=== PATIENT | female | born 1960 | race Hispanic/Latino ===

== ENCOUNTER 2017-10-18 12:55 | Emergency (ER) | payer OTHER ==
--- OUTSIDE RECORDS SUMMARY | 2017-10-18 12:59 | XMS REPORT | Clinical Summary ---
:1960 Author Organization [facility] Address [address] [place] [address] Phone Care Team Providers Name Role Phone Unavailable Primary Care Provider Unavailable Allergies Active Allergy Reactions Severity Noted Date Comments Pregabalin 03/20/2017 Heart attack Current Medications Prescription Sig. Disp. Refills Start Date End Date Status aspirin 81 MG EC Take 81 mg by mouth Active tablet daily. carvedilol (COREG) Take 25 mg by mouth Active 25 MG tablet 2 (two) times daily with breakfast and dinner. clopidogrel (PLAVIX) Take 75 mg by mouth Active 75 mg tablet daily. cholecalciferol, Take 50,000 Units Active vitamin D3, 50,000 by mouth once a unit Tab week. lisinopril Take 40 mg by mouth Active (PRINIVIL,ZESTRIL) daily. 40 MG tablet sevelamer (RENVELA) Take 2,400 mg by Active 800 mg tablet mouth 3 (three) times daily with meals . amLODIPine (NORVASC) Take 10 mg by mouth Active 10 MG tablet daily. INSULIN DEGLUDEC Inject 12 Units Active (TRESIBA FLEXTOUCH subcutaneously U-100 SUBQ) nightly. atorvastatin Take 20 mg by mouth Active (LIPITOR) 20 MG daily. tablet senna (SENOKOT) 8.6 Take 1 tablet by Active mg tablet mouth daily. cyclobenzaprine Take 5 mg by mouth Active (FLEXERIL) 5 MG 3 (three) times tablet daily as needed for Muscle spasms. rosuvastatin Take 20 mg by mouth Discontinued (CRESTOR) 20 MG daily. 7 tablet insulin regular Inject 0.05 mLs (5 10 mL 0 08/04/2015 Discontinued (HUMULIN R,NOVOLIN Units total) 7 R) 100 unit/mL subcutaneously 3 injection (three) times daily before meals. calcium carbonate Take 1 tablet by Discontinued (TUMS) 500 mg mouth daily. 7 chewable tablet cholecalciferol, Take 1,000 Units by Discontinued vitamin D3, 1,000 mouth daily. 7 unit capsule furosemide (LASIX) Take 40 mg by mouth Discontinued 40 MG tablet 2 (two) times 7 daily. hydrALAZINE Take 25 mg by mouth Discontinued (APRESOLINE) 25 MG 3 (three) times 7 tablet daily. meclizine (ANTIVERT) Take 25 mg by mouth Discontinued 25 mg tablet 3 (three) times 7 daily as needed. fLUoxetine (PROZAC) Take 20 mg by mouth Discontinued 20 MG capsule as needed . 7 Active Problems Problem Noted Date Encounter for preprocedural cardiovascular examination 03/20/2017 Pre-transplant evaluation for ESRD (end stage renal disease) 11/22/2016 Last Assessment & Plan: Needs to evaluate for PVD ESRD (end stage renal disease) ([facility]) 11/22/2016 Diabetic nephropathy associated with type 2 diabetes mellitus ([facility]) 11/22/2016 H/O stroke without residual deficits 11/22/2016 Last Assessment & Plan: Patient reports residual right side weakness Proliferative diabetic retinopathy of both eyes without macular edema 2016 associated with type 2 diabetes mellitus ([facility]) Diabetic polyneuropathy associated with type 2 diabetes mellitus ([facility]) 2016 Hyperlipidemia, unspecified hyperlipidemia type 11/22/2016 Secondary hyperparathyroidism of renal origin ([facility]) 11/22/2016 PVD (peripheral vascular disease) ([facility]) 11/22/2016 Last Assessment & Plan: Mild claudication and weakness to bilateral legs when exercising. PVD to common iliacs, but cleared for kidney transplant per aortogram diagram. Metabolic acidosis 08/01/2015 Right sided weakness 07/30/2015 Hyperkalemia 07/30/2015 CKD (chronic kidney disease), stage 3 (moderate) 07/30/2015 Hypertension Last Assessment & Plan: Controled with medication: lisinopril and carvedilol High cholesterol Last Assessment & Plan: Controled with Atorvastatin Diabetes mellitus (HCC) Encounters Date Type Specialty Care Team Description 09/25/2017 Orders Only Transplant Mima Donato, LADAN ESRD (end stage renal disease) (HCC) (Primary Dx);Patient awaiting renal transplant 08/03/2017 Documentation Transplant Keshia Quiles 08/02/2017 [facility] Charge Visit Transplant Soumya Greenberg MD Provider, [facility] Registry Generic 08/02/2017 Documentation Transplant Mima Donato RN 07/24/2017 Documentation Transplant Waleska Stock RN 07/24/2017 Documentation Transplant Bass Sanjuana E 06/28/2017 Telephone Transplant Dayami Appointment (Spoke Waleska Daily RN to Pat, pt's daughter, regarding completion of MRB recommendations. Per Pat, pt still needs to see the neurologist & psychiatrist. Will follow up.) 06/16/2017 Telephone Transplant Bass Sanjuana E Appointment (Returned pt's daughter call, I informed her that pt has a new nurse coordinator (gave her name and #) she was checking on status of eval, I told her I will ck with her coordinator on Monday06/19/17 and one of us will call her back. Gave her Dr. Baker's # for her to call and get a an appt per post MRB. ) 04/04/2017 Evaluation Transplant Zakiya Austin Ramiro H/O stroke without MD Julio residual deficits;Pre-transpl ant evaluation for ESRD (end stage renal disease);PVD (peripheral vascular disease) (HCC);High cholesterol;Essentia l hypertension 04/04/2017 Telephone Transplant Gan, Appointment (Patient Pat daughter Pat called to confirm her mother's appt and she's aware of the location and time of the appt) 03/20/2017 Hospital Encounter Sivan Graber MD Diabetic nephropathy associated with type 2 diabetes mellitus (HCC);ESRD (end stage renal disease) (HCC);H/O stroke without residual deficits;High cholesterol;Hyperlip idemia, unspecified hyperlipidemia type;Essential hypertension;Pre-tra nsplant evaluation for ESRD (end stage renal disease);PVD (peripheral vascular disease) (HCC) 03/20/2017 Orders Only General Internal Medicine 03/20/2017 Outside Orders Central Sivan Garber MD Scheduling 03/20/2017 Procedure Pass 03/20/2017 Surgery Sivan Garber MD L CATH & PCI 03/14/2017 Telephone Transplant Sanjuana Bass E 03/14/2017 Telephone Transplant Mani Lovely Floyd Appointment 01/11/2017 Documentation Transplant Hilda Bassria E 12/07/2016 Documentation Transplant Melody Hernandez RN 12/05/2016 Abstract Transplant Dianne Noble RN 12/02/2016 Committee Review Transplant Sanjuana Bass E 11/22/2016 Evaluation Transplant Soumya Greenberg MD 11/22/2016 Follow-Up Transplant Soumya Greenberg MD 11/22/2016 Follow-Up Transplant Soumya Greenberg MD 11/22/2016 Evaluation Transplant Dionicio, Pre-transplant Bhamidipati evaluation for ESRD MD Pedro (end stage renal disease) (Primary Dx);ESRD (end stage renal disease) (HCC);Diabetic nephropathy associated with type 2 diabetes mellitus (HCC);H/O stroke without residual deficits;Proliferati ve diabetic retinopathy of both eyes without macular edema associated with type 2 diabetes mellitus (HCC);Diabetic polyneuropathy associated with type 2 diabetes mellitus (HCC) 11/14/2016 Hospital Encounter Cardiology Dionicio, Pre-transplant Bhamidipati evaluation for ESRD MD Pedro (end stage renal disease) 11/14/2016 Hospital Encounter Cardiology Dionicio, Pre-transplant Donaamidipati evaluation for ESRD MD Pedro (end stage renal disease) 11/14/2016 Hospital Encounter Cardiology Dionicio, Pre-transplant Bhamidipati evaluation for ESRD MD Pedro (end stage renal disease) 11/14/2016 Hospital Encounter Radiology Soumya Greenberg MD 11/14/2016 Orders Only Transplant Dionicio, Pre-transplant Bhamidipati evaluation for ESRD MD Pedro (end stage renal disease) after 10/17/2016 Family History Medical History Relation Name Comments Diabetes Father Hypertension Father Diabetes Mother Diabetes Sister Diabetes Sister Relation Name Status Comments Brother Alive Father Mother Alive Sister Alive Sister Alive Sister Alive Sister Alive Social History Tobacco Use Types Packs/Day Years Used Date Never Smoker Alcohol Use Drinks/Week oz/Week Comments No Sex Assigned at Date Recorded Not on file Last Filed Vital Signs Vital Sign Reading Time Taken Blood Pressure 134/68 04/04/2017 9:52 AM [employer] Pulse 80 04/04/2017 9:52 AM [employer] Temperature 36.7 C (98.1 F) 04/04/2017 9:52 AM [employer] Respiratory Rate 20 04/04/2017 9:52 AM [employer] Oxygen Saturation 97% 04/04/2017 9:52 AM [employer] Inhaled Oxygen Concentration - - Weight 82.8 kg (182 lb 8 oz) 04/04/2017 9:52 AM [employer] Height 157.5 cm (5' 2") 04/04/2017 9:52 AM [employer] Body Mass Index 33.38 04/04/2017 9:52 AM [employer] Plan of Treatment Health Maintenance Due Date Last Done Comments INFLUENZA VACCINE 02/26/2018 Implants Implanted Type Area Retail Sales Consultant Device Expiration Model / Identifier Date Serial / Lot Device Clsr Angio-Seal Vip 6fr [id number] - [id number] Cardiovascular Right: [employer] TAMIE 01/26/2018 [id number] / Implanted: Qty: 1 on 03/20/2017 by Sivan Garber MD [employer] MED:CARDIAC / SURG [id number] Procedures Procedure Name Priority Date/Time Associated Diagnosis Comments ABD AO & LOWER EXT 03/20/2017 5:30 PM CDT Z01.810 ANGIOS/ POSS PPI Case Notes (2)CASE POP6 LEFT CATH /CORONARY ANGIOS/ POSS PCI BILATERAL LOWER EXT W/ RUNNOFFS L CATH & PCI 03/20/2017 5:30 PM CDT Z01.810 Case Notes (2)CASE POP6 LEFT CATH /CORONARY ANGIOS/ POSS PCI BILATERAL LOWER EXT W/ RUNNOFFS after 10/17/2016 Results VASCULAR DIAGRAM -SCAN (03/29/2017 11:12 AM)Only the most recent of4 resultswithin the time period is included.CARDIAC CATH REPORT - SCAN (2016 6:30 PM)POC-Glucose meter (03/20/2017 3:35 PM)Only the most recent of2 resultswithin the time period is included. Component Value Ref Range POC-Glucose Meter 110Comment: TESTED AT [address] 70 - 110 mg/dL [address] Specimen Performing Laboratory Blood [facility] [address] [address] POCT , urine (03/20/2017 1:27 PM) Component Value Ref Range Test Urine, POC Negative Control line present?, POC Yes Background clear?, POC Yes UPT Cassette Lot #, POC [id number] UPT Cassette Expiration Date, POC 26/08/3018 Specimen Performing Laboratory Urine ECG 12 lead (03/20/2017 1:25 PM)Only the most recent of2 resultswithin the time period is included. Specimen Performing Laboratory GE MUSE Narrative Ventricular Rate 72 BPM Atrial Rate 72 BPM P-R Interval 134 ms QRS Duration 80 ms Q-T Interval 456 ms QTC Calculation(Bazett) 499 ms P [place] 45 degrees R [place] 59 degrees T [place] -12 degrees Normal sinus rhythm Nonspecific T wave abnormality Prolonged QT Abnormal ECG When compared with ECG of 14-NOV-2016 15:15, T wave inversion now evident in Inferior leads Nonspecific T wave abnormality now evident in Anterolateral leads Confirmed by MD JIMBO, IHAB ([id number]) on 03/20/2017 9:53:43 PM Procedure Note Interface, External Ris In - 03/20/2017 9:53 PM CDT Ventricular Rate 72 BPM Atrial Rate 72 BPM P-R Interval 134 ms QRS Duration 80 ms Q-T Interval 456 ms QTC Calculation(Bazett) 499 ms P [place] 45 degrees R [place] 59 degrees T [place] -12 degrees Normal sinus rhythm Nonspecific T wave abnormality Prolonged QT Abnormal ECG When compared with ECG of 14-NOV-2016 15:15, T wave inversion now evident in Inferior leads Nonspecific T wave abnormality now evident in Anterolateral leads Confirmed by MD JIMBO, IHAB ([id number]) on 03/20/2017 9:53:43 PM PT/aPTT (03/20/2017 12:40 PM) Component Value Ref Range Protime 14.3 11.7 - 14.7 seconds INR 1.1 <=5.9 PTT 33.0 22.5 - 36.0 seconds Specimen Performing Laboratory [facility] [address] [place] [address] Narrative RECOMMENDED COUMADIN/WARFARIN INR THERAPY RANGES STANDARD DOSE: 2.0 - 3.0 Includes: PROPHYLAXIS for venous thrombosis, systemic embolization; TREATMENT for venous thrombosis and/or pulmonary embolus. HIGH RISK: Target INR is 2.5-3.5 for patients with mechanical heart valves. CBC (Hemogram only) (03/20/2017 12:40 PM) Component Value Ref Range WBC 13.6 (H) 3.5 - 10.5 K/L RBC 3.90 (L) 3.93 - 5.22 M/L Hemoglobin 11.0 (L) 11.2 - 15.7 GM/DL Hematocrit 35.2 34.1 - 44.9 % MCV 90.3 79.4 - 94.8 fL MCH 28.2 25.6 - 32.2 pg MCHC 31.3 (L) 32.2 - 35.5 GM/DL RDW 13.6 11.7 - 14.4 % Platelets 321 150 - 450 K/CU MM MPV 11.1 9.4 - 12.3 fL nRBC 0 0 - 0 /100 WBC Specimen [place] [address] Basic Metabolic Panel (03/20/2017 12:40 PM) Component Value Ref Range Sodium 140 136 - 145 meq/L Potassium 3.8 3.5 - 5.1 meq/L Chloride 103 98 - 107 meq/L CO2 25 22 - 29 meq/L BUN 47 (H) 7 - 21 mg/dL Creatinine 8.11 (H) 0.57 - 1.25 mg/dL Glucose 88 70 - 105 mg/dL Calcium 7.3 (L) 8.4 - 10.2 mg/dL EGFR 5Comment: ESTIMATED GFR IS NOT ACCURATE CREATININE mL/min/1.73 sq m CLEARANCE IN PREDICTING GLOMERULAR FILTRATION RATE. ESTIMATED GFR IS NOT APPLICABLE FOR DIALYSIS PATIENTS. Specimen [place] [address] Stress Echo With Tracing (11/14/2016 2:07 PM) Specimen Performing Laboratory DIGISONICS Narrative Echocardiography Laboratory [address] [place] [address] Voice:[phone] Stress Echocardiogram Pat.Name:ELLY MARSHALL Emilee.ID:[id number] .Date: 11/14/2016 Refer.:SOUMYA GREENBERG Exam Time: 2:07:00 PMStudy Type:Stress Echo Height:62inWeight: 180lb BSA: 1.83 m2 DOBAge:1960,56Y Sex: FEMALEBP:144/66 HR:79 bpmSonogrphr: Heaven Mendez MIESHA Pat. Stat.:OutpatientRoom:OP Reason for Study:Pre-surgical evaluation of organ transplant History / Clinical:Diabetes, ESRD, Hyperlipidemia, Hypertension, Stroke/TIA Procedures:STRESS ECHO, Dobutamine, Definity contrast done Race: SUMMARY: Overall Stress Interp: Normal Stress echo. No evidence of ischemia. Resting echocardographic study is normal with normal chamber sizes and wall motion throughout. Dobutamine infusion was carried out to a peak dose of 40 mcg/kg/min. This was supplemented by 0.5 mg atropine administration.No chest pain or ischemic EKG changes were found. Echocardiography was performed throughout the study.Wall motion was enhanced in all regions with no segmental abnormalities noted. In conclusion, the study strongly rules against clinically threatening coronary artery disease. These findings are consistent with low risk stress findings. FINDINGS: RESTING FINDINGS RV: RV function is normal. RV wall motion is normal. LV: Overall wall motion is normal. LV function is normal. EstimatedEF is >60%. All waterman are normal STRESS FINDINGS RV: RV function is normal. RV wall motion is normal. LV: LV function is hyperdynamic. Overall stress wall motion is normal.Estimated EF is >60%. All waterman are normal STRESS: Baseline Vital Signs:Intervention: Dobutamine ECG: NormalPeak Dose: 40 mcg/kg /min HR:81Atropine: 0.5 Duration:14:32 Rhythm:Normal sinus rhythm Stress Test Results: Max HR:142 Target HR: 141 % Target:101 % Symptoms and Complications: Arrhythmias: None Complications: None Conclusions: Normal heart rate response to pharmacological stress., Normal blood pressure response to pharmacological stress. Overall Stress Interp: Normal Stress echo. No evidence of ischemia. Stress ECG Interp: No ischemic S-T changes occurred with stress WALL MOTION: RESTING WALL MOTION: All waterman are normal Wall Index=1 STRESS WALL MOTION: All waterman are normal Stress Wall Index=1 Signed 11/14/2016 05:45 PM Stoney Mello M.D. Procedure Note Interface, External Ris In - 11/14/2016 5:45 PM CDT Echocardiography Laboratory [address] [place] [address] Voice: [phone] Stress Echocardiogram Pat.Name: ELLY MARSHALL Pat.ID: [id number] St.Date: 11/14/2016 Refer.MD: SOUMYA GREENBERG Exam Time: 2:07:00 PM Study Type:Stress Echo Height: 62in Weight: 180lb BSA: 1.83 m2 Age: 5 1960,56Y Sex: FEMALE BP: 144/66 HR: 79 bpm Sonogrphr: Heaven Mendez RDCS Pat. Stat.:Outpatient Room: OP Reason for Study:Pre-surgical evaluation of organ transplant History / Clinical:Diabetes, ESRD, Hyperlipidemia, Hypertension, Stroke/TIA Procedures:STRESS ECHO, Dobutamine, Definity contrast done Race: SUMMARY: Overall Stress Interp: Normal Stress echo. No evidence of ischemia. Resting echocardographic study is normal with normal chamber sizes and wall motion throughout. Dobutamine infusion was carried out to a peak dose of 40 mcg/kg/min. This was supplemented by 0.5 mg atropine administration. No chest pain or ischemic EKG changes were found. Echocardiography was performed throughout the study. Wall motion was enhanced in all regions with no segmental abnormalities noted. In conclusion, the study strongly rules against clinically threatening coronary artery disease. These findings are consistent with low risk stress findings. FINDINGS: RESTING FINDINGS RV: RV function is normal. RV wall motion is normal. LV: Overall wall motion is normal. LV function is normal. Estimated EF is >60%. All waterman are normal STRESS FINDINGS RV: RV function is normal. RV wall motion is normal. LV: LV function is hyperdynamic. Overall stress wall motion is normal. Estimated EF is >60%. All waterman are normal STRESS: Baseline Vital Signs: Intervention: Dobutamine ECG: Normal Peak Dose: 40 mcg/kg/min HR: 81 Atropine: 0.5 Duration: 14:32 Rhythm: Normal sinus rhythm Stress Test Results: Max HR: 142 Target HR: 141 % Target: 101 % Symptoms and Complications: Arrhythmias: None Complications: None Conclusions: Normal heart rate response to pharmacological stress., Normal blood pressure response to pharmacological stress. Overall Stress Interp: Normal Stress echo. No evidence of ischemia. Stress ECG Interp: No ischemic S-T changes occurred with stress WALL MOTION: RESTING WALL MOTION: All waterman are normal Wall Index=1 STRESS WALL MOTION: All waterman are normal Stress Wall Index=1 Signed 11/14/2016 05:45 PM Stoney Mello M.D. 2D Echo W/Doppler(CW/PW/Color) (11/14/2016 1:04 PM) Component Value Ref Range Ejection Fraction LV EF 68.3 % (55-75) Index 37.3 %/m2 Specimen Performing Laboratory [facility] Echocardiography Laboratory [address] [place] [address] Voice:[phone] Transthoracic Echocardiogram Pat.Name:ELLY MARSHALL Pat.ID:[id number] .Date: 11/14/2016 Refer.MD:SOUMYA GREENBERG Exam Time: 1:04:00 PMStudy Type:Echo Complete Height:62inWeight: 180lb BSA: 1.83 m2 DOBAge:1960,56Y Sex: FEMALEBP:134/64 HR:80 bpmSonogrphr: Heaven Mendez RDCS Pat. Stat.:OutpatientRoom:OP Reason for Study:Pre-surgical evaluation of organ transplant History / Clinical:Diabetes, ESRD, Hyperlipidemia, Hypertension, Stroke/TIA Procedures:2D ECHO W/ DOPPLER (CW/PW/COLOR), Definity contrast done Race: SUMMARY: Left ventricular chamber size (by vol index) is mildly enlarged (female - LVED vol - 62-70 ml/m2). Mild concentric LV hypertrophy. All of the LV segments contract normally. LVEF by quantitative assessment is normal (> 60%). Grade 2 diastolic dysfunction (moderately increased LA pressure). The right ventricular chamber size and systolic function are within normal limits. A trace of mitral regurgitation. Estimated Peak systolic PA pressure is 40-45 mm Hg. No significant pericardial effusion is visualized. FINDINGS: Rhythm/BP: Regular sinus rhythm during the exam. LV: All of the LV segments contract normally. Left ventricular chambersize (by vol index) is mildly enlarged (female - LVEDvol - 62-70 ml/m2). Mild concentric LV hypertrophy. LVEFby quantitative assessment is normal (> 60%). Grade 2 diastolicdysfunction (moderately increased LA pressure) . LA: LA size is moderately enlarged (42-48 ml/m2). RV: The right ventricular chamber size and systolic function are withinnormal limits. RA: The RA is partially visualized. RA cavity size is normal. AV: Mild AoV cusp thickening. No evidence of aortic stenosis. MV: Mild MV leaflet thickening. A trace of mitral regurgitation. Lvxo-lr-vrozkoeotjoscs annular calcification. TV: A trace of tricuspid regurgitation. TV structure is normal. EstimatedPeak systolic PA pressure is 40-45 mm Hg. PV: Normal PV structure and function by limited views and Doppler. Pericard: No significant pericardial effusion is visualized. Systemic Veins: The inferior vena cava size is normal. The estimated RApressure by IVC dynamics 5-10 mmHg. Comparison: No prior exam available for comparison. Quality:Technically good exam. MEASUREMENTS: 2D LV EF SinglePlane LV Ad 35.3 cm2(9.5-22.3)* LV CO 7.05 l/min LV As 17.9 cm2(4-11.6)* LV CI 3.85 l/min/m2 NVNIA419 ml (59-136) Index68.7 ml/m2 LV SV 86 ml LVESV 40 mlHR82 bpm Left Ventricle LV A% 49.3 %(36-64) LA Sng Plane LA Vol85.3 mlIndex 46.6 ml/m2 LA Area 26.3 cm2(8.8-23.4)* Parasternal Long [place] Ao An 2.03 cm (1.4-2.6) LV%fs 31.6 %(25-46) Ao Rtd2.39 cmLVPWd 1.29 cm IVSd1.27 cm LA Ds 3.97 cm (2.3-3.8)* LVIDd 5.79 cm (4.3-5.1)* LV Wmn 1.28 cm LVIDs 3.96 cm (2-4) DOPPLER LVOT LVOT For Flow EBADjxAiv914 cm/s (70-110) LVOT CO 8.66 l/min LVOT VTI33.3 cmLVOT CI 4.73 l/min/m2 LVOTpkPG4.63 mmHgLVOT Area 3.24 cm2 LVOTmnPG2.31 qkJpXC27 bpm LVOT SV108 ml Aortic Valve AV DI0.744 SVi (LVOT)58.8 LVOT AV For Flow/MAGNOLIA AV pkVel 172 cm/s (100-170)* AV AC/ET 0.277 AV mnVel 117 cm/sAVpkAcRt 4825 cm/s2 AV pkPG 11.8 mmHgAV DeRt 449 cm/s2 AV mnPG 6.45 mmHgArea (VTI) 2.41 cm2(3-5)* AV VTI44.7 cmArea (Preston) 2.03 cm2(3-5)* AV ET383 msecAV AC106 msec (83-118) MV E/A Ratio MV pkE 132 cm/s (60-130)* MV E/A1.05 MV pkA 126 cm/s TV Regurg Flow TV pkVel 297 cm/s (30-70)* TV pkPG 35.3 mmHg RVsys P 45.3 mmHgRA Press 10 mmHg DEFAULT DEFA Em 10.2 cm/sDEFA E/Em 12.7 Signed 11/14/2016 05:43 PM Stoney Mello M.D. Procedure Note Interface, External Ris In - 11/14/2016 5:43 PM CDT Echocardiography Laboratory [address] [place] [address] Voice: [phone] Transthoracic Echocardiogram Pat.Name: ELLY MARSHALL Pat.ID: [id number] .Date: 11/14/2016 Refer.: SOUMYA GREENBERG Exam Time: 1:04:00 PM Study Type:Echo Complete Height: 62in Weight: 180lb BSA: 1.83 m2 Age: 5 1960,56Y Sex: FEMALE BP: 134/64 HR: 80 bpm Sonogrphr: Heaven Mendez RDCS Pat. Stat.:Outpatient Room: OP Reason for Study:Pre-surgical evaluation of organ transplant History / Clinical:Diabetes, ESRD, Hyperlipidemia, Hypertension, Stroke/TIA Procedures:2D ECHO W/ DOPPLER (CW/PW/COLOR), Definity contrast done Race: SUMMARY: Left ventricular chamber size (by vol index) is mildly enlarged (female - LVED vol - 62-70 ml/m2). Mild concentric LV hypertrophy. All of the LV segments contract normally. LVEF by quantitative assessment is normal (> 60%). Grade 2 diastolic dysfunction (moderately increased LA pressure). The right ventricular chamber size and systolic function are within normal limits. A trace of mitral regurgitation. Estimated Peak systolic PA pressure is 40-45 mm Hg. No significant pericardial effusion is visualized. FINDINGS: Rhythm/BP: Regular sinus rhythm during the exam. LV: All of the LV segments contract normally. Left ventricular chamber size (by vol index) is mildly enlarged (female - LVED vol - 62-70 ml/m2). Mild concentric LV hypertrophy. LVEF by quantitative assessment is normal (> 60%). Grade 2 diastolic dysfunction (moderately increased LA pressure). LA: LA size is moderately enlarged (42-48 ml/m2). RV: The right ventricular chamber size and systolic function are within normal limits. RA: The RA is partially visualized. RA cavity size is normal. AV: Mild AoV cusp thickening. No evidence of aortic stenosis. MV: Mild MV leaflet thickening. A trace of mitral regurgitation. Ouka-oy-eoxjydeu mitral annular calcification. TV: A trace of tricuspid regurgitation. TV structure is normal. Estimated Peak systolic PA pressure is 40-45 mm Hg. PV: Normal PV structure and function by limited views and Doppler. Pericard: No significant pericardial effusion is visualized. Systemic Veins: The inferior vena cava size is normal. The estimated RA pressure by IVC dynamics 5-10 mmHg. Comparison: No prior exam available for comparison. Quality: Technically good exam. MEASUREMENTS: 2D LV EF SinglePlane LV Ad 35.3 cm2 (9.5-22.3)* LV CO 7.05 l/min LV As 17.9 cm2 (4-11.6)* LV CI 3.85 l/min/m2 LVEDV 126 ml (59-136) Index 68.7 ml/m2 LV SV 86 ml LVESV 40 ml HR 82 bpm Left Ventricle LV A% 49.3 % (36-64) LA Sng Plane LA Vol 85.3 ml Index 46.6 ml/m2 LA Area 26.3 cm2 (8.8-23.4)* Parasternal Long [place] Ao An 2.03 cm (1.4-2.6) LV%fs 31.6 % (25-46) Ao Rtd 2.39 cm LVPWd 1.29 cm IVSd 1.27 cm LA Ds 3.97 cm (2.3-3.8)* LVIDd 5.79 cm (4.3-5.1)* LV Wmn 1.28 cm LVIDs 3.96 cm (2-4) DOPPLER LVOT LVOT For Flow LVOTpkVel 108 cm/s (70-110) LVOT CO 8.66 l/min LVOT VTI 33.3 cm LVOT CI 4.73 l/min/m2 LVOTpkPG 4.63 mmHg LVOT Area 3.24 cm2 LVOTmnPG 2.31 mmHg HR 80 bpm LVOT SV 108 ml Aortic Valve AV DI 0.744 SVi (LVOT) 58.8 LVOT AV For Flow/MAGNOLIA AV pkVel 172 cm/s (100-170)* AV AC/ET 0.277 AV mnVel 117 cm/s AVpkAcRt 4825 cm/s2 AV pkPG 11.8 mmHg AV DeRt 449 cm/s2 AV mnPG 6.45 mmHg Area (VTI) 2.41 cm2 (3-5)* AV VTI 44.7 cm Area ([place]rest[place]) 2.03 cm2 (3-5)* AV ET 383 msec AV AC 106 msec (83-118) MV E/A Ratio MV pkE 132 cm/s (60-130)* MV E/A 1.05 MV pkA 126 cm/s TV Regurg Flow TV pkVel 297 cm/s (30-70)* TV pkPG 35.3 mmHg RVsys P 45.3 mmHg RA Press 10 mmHg DEFAULT DEFA Em 10.2 cm/s DEFA E/Em 12.7 Signed 11/14/2016 05:43 PM Stoney Mello M.D. US abdomen complete (11/14/2016 12:00 PM) Specimen Performing Laboratory New [facility] FINAL REPORT Abdominal Ultrasound Clinical Diagnosis: Pretransplant evaluation Comparison: No comparison Technique: Multiple transaxial and longitudinal images were obtained through the abdomen with real time ultrasonography.Five MHz transducer was utilized.69 images were submitted for interpretation. Report: Liver: The liver measures 16.6 cm in the right midaxillary line. There are no focal masses.The echogenicity is homogenous. Spleen: The spleen measures 9.5 cm. in the left mid axillary line. Gallbladder: The transverse diameter is 3.7 cm.The wall measures two mm.There are no shadowing stones visualized. Biliary tree: There is no evidence of intra or extra hepatic biliary ductal dilatation.The common bile duct measures five mm. Portal vein: The portal vein measures nine mm. Pancreas:The pancreatic tail is not well seen secondary to overlying bowel gas. Ascites: Negative Pleural Effusion: Negative Right kidney: The right kidney measures 9.9 cm. in length without evidence of hydronephrosis. Left kidney: Theleft kidney measures 9.6 cm. in length without evidence of hydronephrosis. IVC/Aorta: Partially seen segments demonstrate no abnormality. Impression: Small kidneys bilaterally with increased echogenicity consistent with medical renal disease. Signed: Cyndy Lorenzana MD Report Verified Date/Time:11/14/2016 12:57:43 Reading Location: [address] Ultrasound Reading Room Procedure Note Interface, External Ris In - 11/14/2016 12:59 PM CDT FINAL REPORT Abdominal Ultrasound Clinical Diagnosis: Pretransplant evaluation Comparison: No comparison Technique: Multiple transaxial and longitudinal images were obtained through the abdomen with real time ultrasonography. Five MHz transducer was utilized. 69 images were submitted for interpretation. Report: Liver: The liver measures 16.6 cm in the right midaxillary line. There are no focal masses. The echogenicity is homogenous. Spleen: The spleen measures 9.5 cm. in the left mid axillary line. Gallbladder: The transverse diameter is 3.7 cm. The wall measures two mm. There are no shadowing stones visualized. Biliary tree: There is no evidence of intra or extra hepatic biliary ductal dilatation. The common bile duct measures five mm. Portal vein: The portal vein measures nine mm. Pancreas: The pancreatic tail is not well seen secondary to overlying bowel gas. Ascites: Negative Pleural Effusion: Negative Right kidney: The right kidney measures 9.9 cm. in length without evidence of hydronephrosis. Left kidney: The left kidney measures 9.6 cm. in length without evidence of hydronephrosis. IVC/Aorta: Partially seen segments demonstrate no abnormality. Impression: Small kidneys bilaterally with increased echogenicity consistent with medical renal disease. Signed: Cyndy Lorenzana MD Report Verified Date/Time: 11/14/2016 12:57:43 Reading Location: [address] Ultrasound Reading Room Blood typing, automated (11/14/2016 10:19 AM) Component Value Ref Range ABO/RH AUTOMATED (BEAKER) O POSITIVE Specimen Performing Laboratory [place] [address] after 10/17/2016
--- OUTSIDE RECORDS SUMMARY | 2017-10-18 12:59 | XMS REPORT | Clinical Summary ---
:1960 Author Organization [facility] Address [address] [place] [address] Care Team Providers Name Role Phone Mark Lipscomb Primary Care Provider Allergies Active Allergy Reactions Severity Noted Date Comments Adhesive Tape-Silicones 01/26/2017 itchiness Latex Itching 11/24/2016 Pregabalin Itching 11/24/2016 Current Medications Prescription Sig. Disp. Refills Start Date End Date Status aspirin (ECOTRIN) 81 Take 81 mg by Active MG enteric coated mouth. tablet carvedilol (COREG) Take 25 mg by Active 25 MG tablet mouth. clopidogrel (PLAVIX) Take 75 mg by Active 75 mg tablet mouth. sevelamer (RENAGEL) Take 800 mg by Active 800 MG tablet mouth. cyclobenzaprine Take 5 mg by Active (FLEXERIL) 5 mg mouth. tablet amLODIPine (NORVASC) Take 10 mg by Active 10 mg tablet mouth. atorvastatin Take 20 mg by Active (LIPITOR) 20 MG mouth. Default tablet OP ins senna (SENOKOT) 8.6 Take 1 tablet Active mg tablet by mouth. LACTOBACILLUS Take by mouth. Active REUTERI ORAL lisinopril Take 20 mg by Active (PRINIVIL,ZESTRIL) mouth. 20 mg tablet ergocalciferol Take 50,000 Active (VITAMIN D2) 50,000 Units by mouth. unit capsule acetaminophen Take 500 mg by Active (TYLENOL) 500 MG mouth. tablet docusate sodium Take 100 mg by Active (COLACE) 100 MG mouth. capsule lactulose 10 gram/15 Take 10 g by Active mL (15 mL) solution mouth. gentamicin Apply Active (GARAMYCIN) 0.1 % topically. cream insulin regular Inject 5 Units 08/04/2015 04/10/20 Discontinued (HumuLIN-R, under the skin. 17 NovoLIN-R) 100 unit/mL injection rosuvastatin Take 20 mg by 05/17/20 Discontinued (CRESTOR) 20 MG mouth. 17 tablet calcium carbonate Chew 1 tablet 05/17/20 Discontinued (TUMS) 200 mg daily. 17 calcium (500 mg) chewable tablet furosemide (LASIX) Take 40 mg by 02/02/20 Discontinued 40 mg tablet mouth 2 (two) 17 times a day. lisinopril Take 40 mg by 05/17/20 Discontinued (PRINIVIL,ZESTRIL) mouth daily. 17 40 mg tablet pantoprazole Take 40 mg by 11/25/19 Discontinued (PROTONIX) 40 MG EC mouth daily. 17 tablet FLUoxetine (PROzac) Take 20 mg by 05/17/20 Discontinued 20 MG capsule mouth daily. 17 meclizine (ANTIVERT) Take 25 mg by 11/25/19 Discontinued 25 mg tablet mouth 3 (three) 17 times a day as needed for dizziness. acetaminophen-codein Take 1-2 35 tablet 0 11/24/2016 12/02/19 e (TYLENOL WITH tablets by 17 CODEINE #3) 300-30 mouth every 6 mg per tablet (six) hours as needed for moderate pain for up to 7 days. docusate sodium Take 1 capsule 60 capsule 0 11/24/2016 12/25/19 (COLACE) 100 MG (100 mg total) 17 capsule by mouth 2 (two) times a day for 30 days. hydrALAZINE Take 1 tablet 90 tablet 0 02/01/2017 03/03/20 (APRESOLINE) 50 MG (50 mg total) 17 tablet by mouth every 8 (eight) hours for 30 days. amLODIPine (NORVASC) Take 1 tablet 30 tablet 0 02/01/2017 03/03/20 10 mg tablet (10 mg total) 17 by mouth daily for 30 days. darbepoetin Inject 0.5 mL 2 mL 0 02/01/2017 03/03/20 devonte-polysorbate (100 mcg total) 17 (ARANESP) 100 under the skin mcg/0.5 mL once a week at syringeIndications: 4pm for 30 days ESRD on Dialysis Indications: ESRD on Dialysis. polyethylene glycol Take 17 g by 30 packet 0 02/01/2017 03/03/20 (MIRALAX) 17 gram mouth daily for 17 packet 30 days. insulin degludec Inject 12-16 05/17/20 Discontinued (TRESIBA FLEXTOUCH Units under the 17 U-100) 100 unit/mL skin nightly. (3 mL) insulin pen lidocaine (LIDODERM) Place 1 patch 05/17/20 Discontinued 5 % on the skin. 17 Remove & Discard patch within 12 hours or as directed by polyvinyl alcohol Administer 1 15 mL 0 05/19/2017 06/18/19 (LIQUIFILM TEARS) drop to both 18 1.4 % ophthalmic eyes 4 (four) solution times a day as needed for dry eyes for up to 30 days. acetaminophen-codein Take 1 tablet 30 tablet 0 05/19/2017 05/29/19 e (TYLENOL WITH by mouth every 18 CODEINE #3) 300-30 8 (eight) hours mg per tablet as needed for moderate pain for up to 10 days. acetaminophen-codein Take 1-2 30 tablet 0 07/22/2017 07/30/19 e (TYLENOL WITH tablets by 18 CODEINE #3) 300-30 mouth every 6 mg per tablet (six) hours as needed for mild pain for up to 7 days. Active Problems Problem Noted Date Generalized abdominal pain 07/21/2017 PD catheter dysfunction 05/17/2017 Uremia 01/19/2017 End stage renal disease on dialysis 11/24/2016 Encounters Date Type Specialty Care Team Description 08/09/2017 Office Visit General Surgery Opraza, Surgery follow-up Anival Mitchell MD (Primary Dx) 07/21/2017 - Emergency General Internal Adriel Corbin Generalized abdominal pain (Primary Dx); 07/22/2017 Medicine Barbara STEVENS MD Peritoneal dialysis catheter dysfunction, initial encounter Anival Ayers MD 07/21/2017 Anesthesia Event General Surgery Yajaira Hill CRNA 07/21/2017 Procedure Pass General Surgery 07/21/2017 Surgery General Surgery Izzy Ayers MD Catheter, Intraperitoneal, Laparoscopic, Bilateral salpingectomy 05/18/2017 Anesthesia Event General Surgery Evelio Hughes MD 05/18/2017 Procedure Pass General Surgery 05/18/2017 Surgery General Surgery Adam Ayers MD Revision Insertion Peritoneal Dialysis Catheter. 05/17/2017 - Emergency General Internal Sunny, Peritoneal dialysis catheter dysfunction, initial encounter (Primary Dx); 05/19/2017 Medicine Victorino Jimenez MD Uncontrolled hypertension Joel Lipscomb MD 04/10/2017 Office Visit Endocrinology Yolanda Le Uncontrolled type 2 diabetes mellitus with ESRD (end-stage renal disease) (Primary Dx); MD Gato ESRD (end stage renal disease) on dialysis; Patham, Peripheral sensory neuropathy due to type 2 diabetes mellitus; MD Bijal History of foot ulcer; History of stroke; Retinopathy due to secondary diabetes; Obesity (BMI 30-39.9); Vitamin D deficiency 01/26/2017 Anesthesia Event General Surgery Freddy Ledezma MD 01/26/2017 Procedure Pass General Surgery 01/26/2017 Surgery General Surgery Helder Acevedo LAPAROSCOPIC LYSIS MD Richie OF ADHESIONS AND PERITONEAL DIALYSIS CATHETER REVISION 01/19/2017 - Hospital Encounter General Internal Trish Milner Uremia ( Primary Dx); 02/01/2017 Medicine MD Zakiya Hypervolemia, unspecified hypervolemia type; Mesfin Hamilton End stage renal disease on dialysis MD Jasmina 12/06/2016 Office Visit General Surgery Andria, Surgery follow-up Anival Mitchell MD (Primary Dx) 11/24/2016 Hospital Encounter General Surgery Anival Ayers MD 11/24/2016 Procedure Pass General Surgery 11/24/2016 Surgery General Surgery Andria LAPAROSCOPIC Anival Mitchell MD PERITONEAL DIALYSIS CATHETER PLACEMENT AND UMBILICAL HERNIA REPAIR 11/23/2016 Anesthesia Event General Surgery Britt Wahl FNP 11/10/2016 Office Visit General Surgery Andria, End-stage renal Anival Mitchell MD disease (Primary Dx) 11/10/2016 Abstract General Surgery Marleny Jurado MA 11/10/2016 Orders Only General Surgery Marleny Jurado MA after 10/17/2016 Family History Medical History Relation Name Comments Diabetes Father Hypertension Father Kidney disease Father Diabetes Mother Hypertension Mother Relation Name Status Comments Father Mother Alive Social History Tobacco Use Types Packs/Day Years Used Date Never Smoker Smokeless Tobacco: Never Used Alcohol Use Drinks/Week oz/Week Comments No Sex Assigned at Date Recorded Not on file Last Filed Vital Signs Vital Sign Reading Time Taken Blood Pressure 98/52 08/09/2017 9:40 AM CDT Pulse 74 08/09/2017 9:40 AM CDT Temperature 36.1 C (96.9 F) 07/22/2017 8:52 AM BOTTOM SANDER Respiratory Rate 18 07/22/2017 8:52 AM BOTTOM SANDER Oxygen Saturation 100% 07/22/2017 8:52 AM BOTTOM SANDER Inhaled Oxygen Concentration - - Weight 82.6 kg (182 lb) 08/09/2017 9:40 AM CDT Height 157.5 cm (5' 2") 08/09/2017 9:40 AM CDT Body Mass Index 33.29 08/09/2017 9:40 AM CDT Plan of Treatment Health Maintenance Due Date Last Done Comments DIABETIC RETINAL EYE EXAM 1972 URINE MICROALBUMIN 1972 CERVICAL CANCER SCREENING 08/13/1983 BREAST CANCER SCREENING 2012 COLON CANCER SCREENING 2012 SHINGRIX VACCINE (#1) 2012 INFLUENZA VACCINE 12/27/2017 DIABETIC FOOT EXAM 04/10/2018 04/10/2017, 04/10/2017 Implants Implanted Type Area Engine Service Repairer Device Expiration Model / Identifier Date Serial / Lot Peritoneal Dialysis Catheter Titan Extnd W/O Bead And Flange Catheter, N/A: Foremost 03/27/2020 [id number] / Implanted: Qty: 1 on 11/24/2016 by Anival Ayers MD Dialysis Abdomen , INTERNATIONAL, / [facility] [id number] Quadrant/No n Specific Procedures Procedure Name Priority Date/Time Associated Diagnosis Comments IA AN ELECTIVE Routine 07/21/2017 4:27 PM ENDOTRACHEAL AIRWAY BOTTOM SANDER Procedure Note - Sam Nick CRNA - 07/21/2017 4:27 PM BOTTOM SANDER Airway Date/Time: 07/21/2017 4:28 PM Performed by: SAM NICK Authorized by: MARLY CHILD Location: OR Urgency: Elective Difficult Airway: No Preoxygenated with 100% O2: Yes C-spine Precautions Maintained Throughout: Yes Mask Ventilation: Easy mask Final Airway Type: Endotracheal airway Final Endotracheal Airway: ETT Cuffed: Yes Technique Used: Direct laryngoscopy Insertion Site: Oral Blade Type: Vu Laryngoscope Blade/Videolaryngoscope Blade Size: 2 ETT Size (mm): 7.5 Cuff at minimum occlusion pressure: Yes Measured from: Lips ETT to Lips (cm): 22 Placement Verified by: CO2 detection, direct visualization and equal breath sounds Laryngoscopic view: Grade IIa - partial view of glottis Rapid Sequence Induction (RSI): No Modified RSI: No Number of Attempts at Approach: 1 IA AN ELECTIVE ENDOTRACHEAL AIRWAY Routine 05/18/2017 2:14 PM BOTTOM SANDER Procedure Note - Dena Hardy CRNA - 05/18/2017 2:13 PM BOTTOM SANDER Airway Date/Time: 05/18/2017 2:00 PM Performed by: DENA HARDY Authorized by: MADHAV CASTILLO Location: OR Urgency: Elective Difficult Airway: No Resident/BAKERY MACHINE MECHANIC SUPERVISOR/AA: DENA HARDY Performed by: resident/BAKERY MACHINE MECHANIC SUPERVISOR/AA Preoxygenated with 100% O2: Yes Mask Ventilation: Easy mask Final Airway Type: Endotracheal airway Technique Used: Direct laryngoscopy Devices/Methods Used in Placement: Intubating stylet Blade Type: Vu Laryngoscope Blade/Videolaryngoscope Blade Size: 2 Measured from: Lips ETT to Lips (cm): 21 Placement Verified by: CO2 detection, direct visualization and equal breath sounds Laryngoscopic view: Grade I - full view of glottis Rapid Sequence Induction (RSI): No Modified RSI: No Number of Attempts at Approach: 1 +ETCO2, continuous. Atraumatic. ETOH out EEG VIDEO MONITORING Routine 02/01/2017 1:09 PM CDT EEG VIDEO MONITORING Routine 02/01/2017 12:21 AM CDT EEG AWAKE/DROWSY LESS THAN Routine 01/31/2017 10:05 AM CDT Results for this 41 MIN procedure are in the results section. IA AN ELECTIVE ENDOTRACHEAL Routine 01/26/2017 8:16 AM CDT AIRWAY Procedure Note - Sue Giraldo CRNA - 01/26/2017 8:15 AM CDT Airway Date/Time: 01/26/2017 8:02 AM Performed by: SUE GIRALDO Authorized by: FREDDY LEDEZMA Location: OR Urgency: Elective Difficult Airway: No Preoxygenated with 100% O2: Yes C-spine Precautions Maintained Throughout: Yes Mask Ventilation: Easy mask Final Airway Type: Endotracheal airway Final Endotracheal Airway: ETT Cuffed: Yes Technique Used: Direct laryngoscopy Devices/Methods Used in Placement: Intubating stylet Insertion Site: Oral Blade Type: Vu Laryngoscope Blade/Videolaryngoscope Blade Size: 2 ETT Size (mm): 7.0 Cuff at minimum occlusion pressure: Yes Measured from: Lips ETT to Lips (cm): 22 Placement Verified by: CO2 detection and direct visualization Laryngoscopic view: Grade I - full view of glottis Rapid Sequence Induction (RSI): No Modified RSI: No Number of Attempts at Approach: 1 LAPAROSCOPIC LYSIS OF 01/26/2017 8:00 AM End stage renal ADHESIONS AND CDT disease on PERITONEAL DIALYSIS dialysis CATHETER REVISION HEMODIALYSIS Routine 01/25/2017 9:35 AM CDT IA INSERT NON-TUNNEL Routine 01/24/2017 1:02 PM Uremia Results for this CV CATH CDT End stage renal procedure are in disease on the results dialysis section. HEMODIALYSIS Routine 01/22/2017 1:30 PM CDT HEMODIALYSIS Routine 01/22/2017 9:59 AM CDT HEMODIALYSIS Routine 01/20/2017 3:22 PM CDT IA AN ELECTIVE Routine 11/24/2016 10:01 AM ENDOTRACHEAL AIRWAY CDT Procedure Note - Cyndy Baugh CRNA - 11/24/2016 10:00 AM CDT Airway Date/Time: 11/24/2016 9:46 AM Performed by: ELISE BAUGH Authorized by: MARLY CHILD Location: OR Urgency: Elective Difficult Airway: No Anesthesiologist: MARLY CHILD Resident/BAKERY MACHINE MECHANIC SUPERVISOR: ELISE BAUGH Performed by: resident/BAKERY MACHINE MECHANIC SUPERVISOR and anesthesiologist Preoxygenated with 100% O2: Yes Mask Ventilation: Easy mask Final Airway Type: Endotracheal airway Final Endotracheal Airway: ETT Cuffed: Yes Technique Used: Direct laryngoscopy Devices/Methods Used in Placement: Intubating stylet Insertion Site: Oral Blade Type: Vu Laryngoscope Blade/Videolaryngoscope Blade Size: 2 ETT Size (mm): 7.0 Cuff at minimum occlusion pressure: Yes Measured from: Lips ETT to Lips (cm): 21 Placement Verified by: CO2 detection, direct visualization and equal breath sounds Laryngoscopic view: Grade I - full view of glottis Rapid Sequence Induction (RSI): No Modified RSI: No Number of Attempts at Approach: 1 after 10/17/2016 Results Estimated GFR (07/22/2017 6:00 AM)Only the most recent of15 resultswithin the time period is included. Component Value Ref Range GFR Non Af Amer 4 (A) mL/min/1.73 m2 GFR Af Amer 5 (A) mL/min/1.73 m2 Comment: Chronic kidney disease: <60 mL/min/1.73m2 Kidney failure: <15 mL/min/1.73m2 The estimated GFR is calculated from the IDMS-traceable Modification of Diet in Renal Disease Equation. The accuracy of the calculation is poor when the creatinine is normal. Calculated values >90 mL/min/1.73m2 are not reported. This equation has not been validated in children (<18 years), women, the elderly (>70 years), or ethnic groups other than Caucasians and Americans. Specimen Performing Laboratory Plasma specimen [facility] DEPARTMENT OF PATHOLOGY AND GENOMIC MEDICINE [address] [place] [id number] CBC with platelet and differential (07/22/2017 6:00 AM)Only the most recent of13 resultswithin the time period is included. Component Value Ref Range WBC 10.5 4.5 - 11.0 k/uL RBC 3.29 (L) 4.20 - 5.50 m/uL HGB 9.8 (L) 12.0 - 16.0 g/dL HCT 30.6 (L) 37.0 - 47.0 % MCV 93.0 82.0 - 100.0 fL MCH 29.8 27.0 - 34.0 pg MCHC 32.0 31.0 - 37.0 g/dL RDW - SD 45.4 37.0 - 55.0 fL MPV 11.0 6.9 - 11.0 fL Platelet count 265 150 - 400 K/uL Nucleated RBC 0.00 /100 WBC Neutrophils 78.8 (H) 39.0 - 69.0 % Lymphocytes 14.7 (L) 25.0 - 45.0 % Monocytes 3.9 0.0 - 10.0 % Eosinophils 1.5 0.0 - 5.0 % Basophils 0.4 0.0 - 1.0 % Immature granulocytes 0.7 0.0 - 1.0 % Specimen Performing Laboratory Blood [facility] DEPARTMENT OF PATHOLOGY AND GENOMIC MEDICINE [address] [place] [id number] Phosphorus level (07/22/2017 6:00 AM)Only the most recent of7 resultswithin the time period is included. Component Value Ref Range Phosphorus 9.0 (HH)Comment: Final results called to and read back by 2.4 - 4.5 mg/dL GUZMAN AMATO RN 07/22/2017 06:55 EXT Specimen Performing Laboratory Plasma specimen [facility] PATHOLOGY AND [address] [address] Magnesium level (07/22/2017 6:00 AM)Only the most recent of7 resultswithin the time period is included. Component Value Ref Range Magnesium 2.3 1.6 - 2.6 mg/dL Specimen Performing Laboratory Plasma specimen [facility] AND [address] [address] Basic metabolic panel (07/22/2017 6:00 AM)Only the most recent of12 resultswithin the time period is included. Component Value Ref Range Sodium 141 135 - 148 mEq/L Potassium 4.1 3.5 - 5.0 mEq/L Chloride 104 98 - 112 mEq/L CO2 18 (L) 24 - 31 mEq/L Anion gap 19 (H) 7 - 15 mEq/L Comment: Starting from August , anion gap calculation no longer incorporates potassium. Please note the change. BUN 68 (H) 6 - 20 mg/dL Creatinine 10.3 (H) 0.5 - 0.9 mg/dL Glucose 117 (H) 65 - 99 mg/dL Calcium 6.7 (L) 8.3 - 10.2 mg/dL Specimen Performing Laboratory Plasma specimen [facility] AND [address] [address] Hepatitis B surface Ab, quantitative (07/21/2017 9:05 PM) Component Value Ref Range Hepatitis B surface Ab 16.36 IU/L Comment: The anti-HBs is greater than or equal to 10 IU/L. This patient has either had an antibody response to HBV vaccination, received a transfusion, or has recovered from HBV infection. This patient should be considered immune to hepatitis B. An anti-HBs result greater than or equal to 10 IU/L implies immunity. For post-vaccination antibody testing guidelines for the general public refer to MMWR May 20, 2005/Vol. 54(No. 16);1-23, and for healthcare workers refer to MMWR May 17, 2013/Vol. 62(No. 10);-19. Reference Interval: anti-HBs 9.99 IU/L or less ....... Negative 10.00 IU/L or greater .... Positive Results greater than 1,000.00 IU/L are reported as greater than 1,000.00 IU/L. This assay should not be used for blood donor screening, associated re-entry protocols, or for screening Human Cell, Tissues and Cellular and Tissue-Based Products (HCT/P). Performed by [facility], [address] [place] [address] [email or web address], Marc Monae MD - Lab. Director Specimen Performing Laboratory Serum [facility] [address] [place] [address] Hepatitis B surface antibody (07/21/2017 9:05 PM) Component Value Ref Range Hepatitis B surface Ab Reactive (A) Non-reactive Specimen Performing Laboratory Blood [facility] DEPARTMENT OF PATHOLOGY AND GENOMIC MEDICINE [address] [place] [address] Hepatitis B surface antigen (07/21/2017 9:05 PM)Only the most recent of2 resultswithin the time period is included. Component Value Ref Range Hepatitis B surface Ag Non-reactive Non-reactive Specimen Performing Laboratory Blood [facility] DEPARTMENT OF PATHOLOGY AND GENOMIC MEDICINE [address] [place] [address] POC glucose (07/21/2017 8:56 PM)Only the most recent of65 resultswithin the time period is included. Component Value Ref Range POC glucose 116 (H) 65 - 99 mg/dL Comment: RN Notified Meter ID: [id number] Executive Housekeeper: Areli Hopkins Specimen Performing Laboratory [facility] DEPARTMENT OF PATHOLOGY AND GENOMIC MEDICINE [address] [place] [address] Partial thromboplastin time, activated (07/21/2017 12:41 PM)Only the most recent of4 resultswithin the time period is included. Component Value Ref Range PTT 31.2 23.0 - 36.0 sec Comment: PTT therapeutic range for unfractionated heparin is 61.0-112.0 seconds which corresponds to Anti-Xa 0.3-0.7 U/ml. Specimen Performing Laboratory Blood [facility] DEPARTMENT OF PATHOLOGY AND GENOMIC MEDICINE [address] [place] [address] Prothrombin time with INR (07/21/2017 12:41 PM)Only the most recent of4 resultswithin the time period is included. Component Value Ref Range Prothrombin time 13.5 12.0 - 15.0 sec INR 1.0 Comment: The International Normalized Ratio (INR) is a therapeutic monitoring tool for patients who are stable on oral anticoagulant therapy. An INR of 2.0-3.0 is suggested for deep vein thrombosis/pulmonary embolism. Specimen Performing Laboratory Blood [facility] DEPARTMENT OF PATHOLOGY AND [address] [address] Surgical pathology request (07/21/2017 7:52 AM) Component Value Ref Range Surgical pathology report See link below for PDF Lab Report Result status This is Final Report to [id number] Specimen Performing Laboratory [facility] DEPARTMENT OF PATHOLOGY AND [address] [address] Transfuse RBC (05/19/2017 5:47 PM)Only the most recent of2 resultswithin the time period is included.Prepare RBC, 1 Units (05/19/2017 10:10 AM) Component Value Ref Range Product name Red Blood Cells -1, Leukored Unit number [id number] Product code [id number] Dispense status Transfused Blood expiration date [id number] Blood type code 5100 Blood type O POSITIVE Specimen Performing Laboratory [facility] DEPARTMENT OF PATHOLOGY AND [facility] [address] [place] [address] Type and screen (05/19/2017 10:10 AM)Only the most recent of2 resultswithin the time period is included. Component Value Ref Range ABO grouping O Rh type POS Antibody screen (gel) NEG Specimen Performing Laboratory Blood [facility] OF PATHOLOGY AND [address] [address] POC panel 4 (05/18/2017 1:40 PM)Only the most recent of2 resultswithin the time period is included. Component Value Ref Range POC sodium 139 135 - 148 meq/L POC potassium 4.4 3.5 - 5.0 meq/L POC hematocrit 24 (L) 37 - 47 % POC glucose 147 (H) 65 - 99 mg/dL POC hemoglobin 8.2 (L) 12.0 - 16.0 g/dL Specimen Performing Laboratory Blood [facility] DEPARTMENT OF PATHOLOGY AND [address] [address] ECG ED Preliminary Interpretation - NOT AN ORDER (05/18/2017 12:39 PM)Only the most recent of2 resultswithin the time period is included. Narrative Victorino Suh MD 05/18/2017 12:39 PM ECG ED Preliminary Interpretation - Not an Order Performed by: VICTORINO SUH Authorized by: VICTORINO SUH ECG reviewed by ED Physician in the absence of a aerospace technician: yes Interpretation: Interpretation: normal Rate: ECG rate:77 ECG rate assessment: normal Rhythm: Rhythm: sinus rhythm Ectopy: Ectopy: none QRS: QRS axis:Normal QRS intervals:Normal Conduction: Conduction: normal ST segments: ST segments:Normal T waves: T waves: normal Other findings: Other findings: prolonged qTc interval XR Kub Kidney Ureter Bladder (05/17/2017 7:42 PM) Specimen Performing Laboratory [facility] [address] [place] [address] Narrative XR KUB KIDNEY URETER BLADDER CLINICAL INDICATION:PD cath problem COMPARISON:01/19/2017 IMPRESSION: A left-sided peritoneal dialysis catheter is present as on prior exam, the tip coiled in the pelvis. Bowel gas pattern is unremarkable. There are no radiopaque calculi. Moderate atherosclerotic vascular calcifications are present. Bones are intact and unchanged. [facility]-[id number] Procedure Note Interface, Radiology Results Incoming - 05/17/2017 7:48 PM BOTTOM SANDER XR KUB KIDNEY URETER BLADDER CLINICAL INDICATION: PD cath problem COMPARISON: 01/19/2017 IMPRESSION: A left-sided peritoneal dialysis catheter is present as on prior exam, the tip coiled in the pelvis. Bowel gas pattern is unremarkable. There are no radiopaque calculi. Moderate atherosclerotic vascular calcifications are present. Bones are intact and unchanged. [facility]-[id number] Comprehensive metabolic panel (05/17/2017 2:44 PM)Only the most recent of3 resultswithin the time period is included. Component Value Ref Range Sodium 139 135 - 148 mEq/L Potassium 4.1 3.5 - 5.0 mEq/L Chloride 102 98 - 112 mEq/L CO2 21 (L) 24 - 31 mEq/L Anion gap 16 (H) 7 - 15 mEq/L Comment: Starting from August , anion gap calculation no longer incorporates potassium. Please note the change. BUN 57 (H) 6 - 20 mg/dL Creatinine 9.4 (H) 0.5 - 0.9 mg/dL Glucose 163 (H) 65 - 99 mg/dL Calcium 7.4 (L) 8.3 - 10.2 mg/dL Protein 6.7 6.3 - 8.3 g/dL Albumin 3.1 (L) 3.5 - 5.0 g/dL A/G ratio 0.9 0.7 - 3.8 Alkaline phosphatase 84 35 - 104 U/L AST 15 10 - 35 U/L ALT 10 5 - 50 U/L Total bilirubin 0.4 0.2 - 1.2 mg/dL Specimen Performing Laboratory Plasma specimen [facility] DEPARTMENT OF PATHOLOGY AND GENOMIC MEDICINE [id number] [place] [address] ECG 12 lead (05/17/2017 12:29 PM)Only the most recent of4 resultswithin the time period is included. Component Value Ref Range Ventricular rate 77 Atrial rate 77 IA interval 140 QRSD interval 76 QT interval 432 QTC interval 488 P axis 1 63 QRS axis 1 86 T wave axis 20 EKG impression Normal sinus rhythm-Low voltage QRS-Prolonged QT-Abnormal ECG-In automated comparison with ECG of 30-JAN-2017 20:44,-No significant change was found- Specimen Performing Laboratory [facility] [address] [place] [address] POC glycosylated hemoglobin (Hb A1C) (04/10/2017 1:24 PM)Only the most recent of2 resultswithin the time period is included. Component Value Ref Range POC Hemoglobin A1C 7.9Comment: Non Fasting % Specimen Performing Laboratory Blood Continuous EEG monitoring (DO NOT CLICK DISCONTINUE BUTTON) (02/01/2017 1:09 PM ) Narrative CONTINUOUS VIDEO-EEG MONITORING REPORT Patient Name: Daly Marshall Date of : 1960 Gender: female Start Date: 02/01/17 Start Time: 00:00 End Date: 02/01/17 End Time: 12:26 Indication Seizures Technical Summary Technique:Modified international 10/20 system of EEG electrode placement was used. Visual Analysis of EEG-Video Monitoring:This electroencephalogram was recorded simultaneously with video throughout the monitoring. The EEG was visually inspected and analyzed for characterization of the background activity in all awake and sleep states, abnormal focal and generalized features, and intraictal and ictal epileptiform activity. Electrical seizure activity was correlated with the patients clinical activity recorded on video and video captured clinical events were correlated with simultaneously recorded EEG activity. Computer Analysis of EEG Waveforms:The EEG underwent continuous computerized digital spectral analysis, which consisted of real time detection of electrical events that could be considered epileptiform. All electrographic events identified by the detection program were visually inspected in order to assess the waveform characteristics and significance of these electrographic events. All intraictal and ictal epileptiform events are described further below with additional details of the visual analysis of the EEG. Events detected by computer analysis that were not determined by visual analysis to be epileptiform were considered to be myogenic, biologic, mechanical, or electrical artifact in origin. Only computer detected events that have been verified by visual inspection to be interictal or ictal epileptiform discharges are reported below and considered in the final report of this monitoring study. Findings Awake Recording: The occipital dominant rhythm is 9 Hz. 18-22 Hz activity is present in all regions. Sleep Recording:No epileptiform activity was recorded. Hyperventilation: Not performed. Photic Stimulation: Not performed. Impression The background activity is within the range of normal variation. No lateralized or epileptiform activity was recorded. ICD-10 Code: R569 Continuous EEG monitoring (DO NOT CLICK DISCONTINUE BUTTON) (02/01/2017 12:21 AM ) Narrative CONTINUOUS VIDEO-EEG MONITORING REPORT Patient Name: Daly Marshall Date of : 1960 Gender: female Start Date: 01/31/17 Start Time: 9:51 End Date: 01/31/17 End Time: 23:59 Indication Seizures Technical Summary Technique:Modified international 10/20 system of EEG electrode placement was used. Visual Analysis of EEG-Video Monitoring:This electroencephalogram was recorded simultaneously with video throughout the monitoring. The EEG was visually inspected and analyzed for characterization of the background activity in all awake and sleep states, abnormal focal and generalized features, and intraictal and ictal epileptiform activity. Electrical seizure activity was correlated with the patients clinical activity recorded on video and video captured clinical events were correlated with simultaneously recorded EEG activity. Computer Analysis of EEG Waveforms:The EEG underwent continuous computerized digital spectral analysis, which consisted of real time detection of electrical events that could be considered epileptiform. All electrographic events identified by the detection program were visually inspected in order to assess the waveform characteristics and significance of these electrographic events. All intraictal and ictal epileptiform events are described further below with additional details of the visual analysis of the EEG. Events detected by computer analysis that were not determined by visual analysis to be epileptiform were considered to be myogenic, biologic, mechanical, or electrical artifact in origin. Only computer detected events that have been verified by visual inspection to be interictal or ictal epileptiform discharges are reported below and considered in the final report of this monitoring study. Findings Awake Recording: The occipital dominant rhythm is 9 Hz. 18-22 Hz activity is present in all regions. Sleep Recording:No epileptiform activity was recorded. Hyperventilation: Not performed. Photic Stimulation: Not performed. Impression The background activity is within the range of normal variation. No lateralized or epileptiform activity was recorded. ICD-10 Code: R569 EEG (routine) - Baseline EEG (01/31/2017 10:05 AM) Narrative EEG AWAKE AND DROWSY Date of Service: 01/31/17 Awake Recording: The occipital dominant rhythm is 9 Hz. 18-22 Hz activity is present in all regions. Sleep Recording:No sleep was recorded. Hyperventilation: Not performed. Photic Stimulation: Not performed. Impression The background activity is within the range of normal variation. No lateralized or epileptiform activity was recorded. ICD-10 Code: R569 Ionized calcium (01/31/2017 4:30 AM)Only the most recent of2 resultswithin the time period is included. Component Value Ref Range pH 7.41 Ionized calcium 1.07 (L) 1.11 - 1.32 mmol/L Specimen Performing Laboratory Plasma specimen [facility] DEPARTMENT OF PATHOLOGY AND GENOMIC MEDICINE [address] [place] [address] 16412 Vitamin D 25 hydroxy level (01/30/2017 5:44 PM) Component Value Ref Range Vitamin D, 25-hydroxy 15.9 (L) 30.0 - 150.0 ng/mL Comment: This assay reports the sum of 25-hydroxy vitamin D3 and 25-hydroxy vitamin D2. Reference range: 0-17 years: Deficiency: less than 20ng/mL Optimum level: greater than or equal to 20 ng/mL. 18 years and older: Deficiency: less than 20ng/mL Insufficiency: 20-29 ng/mL Optimum Level: 30-80 ng/mL The assay reportable range is 3.4155.9 ng/mL. Levels higher than 150 ng/mL may be associated with toxicity. If toxicity is clinically suspected and the reported result is >155.9 ng/mL,contact lab for alternative methods to obtain a definitivelevel. If separate quantitation of 25-hydroxy vitamin D3 and 25-hydroxy vitamin D2 is needed, please contact lab for alternative methods. Specimen Performing Laboratory Blood [facility] [place] [address] N[address]ative CMP ADDED BY DR. NAZARIO01/30/201718:21 . Thyroid stimulating hormone (01/30/2017 5:44 PM) Component Value Ref Range TSH 2.08 0.27 - 4.20 uIU/mL Specimen Performing Laboratory Plasma specimen [facility] [place] [address] Narrative CMP ADDED BY DR. OSORIO18:21 . T4, free (01/30/2017 5:44 PM) Component Value Ref Range T4, free 1.7 0.9 - 1.7 ng/dL Specimen Performing Laboratory Plasma specimen [facility] [place] [address] Narrative CMP ADDED BY DR. OSORIO18:21 . Parathyroid hormone (01/30/2017 5:44 PM) Component Value Ref Range PTH 243 (H) 15 - 65 pg/mL Specimen Performing Laboratory Blood [facility] [place] [address] Narrative CMP ADDED BY DR. OSORIO18:21 . Lactic acid level (01/30/2017 5:44 PM) Component Value Ref Range Lactic acid 0.8 0.5 - 2.2 mmol/L Specimen Performing Laboratory Plasma specimen [facility] [place] [address] CENTRAL LINE (01/24/2017 1:02 PM) Narrative Dangelo Matos MD 01/20/20172:42 PM Central Line Insertion Performed by: DANGELO MATOS Authorized by: MESFIN HAMILTON Consent: Consent obtained:Written Consent given by:Patient Risks discussed:Arterial puncture, bleeding, incorrect placement, infection and nerve damage Alternatives discussed:Delayed treatment, no treatment and observation Spencer protocol: Procedure explained and questions answered to patient or proxy's satisfaction: yes Relevant documents present and verified: yes Test results available and properly labeled: yes Imaging studies available: yes Required blood products, implants, devices, and special equipment available: yes Site/side marked: yes Immediately prior to procedure, a time out was called: yes Patient identity confirmed:Arm band Pre-procedure details: Hand hygiene: Hand hygiene performed prior to insertion Sterile barrier technique: All elements of maximal sterile technique followed Skin preparation:2% chlorhexidine Skin preparation agent: Skin preparation agent completely dried prior to procedure Anesthesia (see MAR for exact dosages): Anesthesia method:Local infiltration Local anesthetic:Lidocaine 1% WITH epi Procedure details: Catheter type:Triple lumen Catheter length (cm):30 Catheter site: femoral vein Catheter Site Laterality:Right Patient position:Flat Landmarks identified: yes Ultrasound guidance: yes Sterile ultrasound techniques: Sterile gel and sterile probe covers were used Number of attempts:1 Successful placement: yes Post-procedure details: Post-procedure:Dressing applied and line sutured Assessment:Blood return through all ports and free fluid flow Patient tolerance of procedure:Tolerated well, no immediate complications NM Lung Ventilation Perfusion (01/20/2017 8:21 AM) Specimen Performing Laboratory [facility] [address] [place] [address] Narrative PROCEDURE:NM LUNG VENTILATION PERFUSION INDICATION:Chest pain. COMPARISON:Chest x-ray dated 01/19/2017. TECHNIQUE:Planar ventilation images were acquired after the inhalation of 15 mCi of Xe-133 gas. Planar perfusion images were acquired after the IV adminstration of 5 mCi of Tc-99m MAA. FINDINGS:Ventilation images demonstrate uniform ventilation to both lungs. Washout images demonstrate no significant gas trapping.Perfusion images demonstrate small defects in the left lung periphery.No large size defects.Comparison chest x-ray did not show a confluent infiltrate. IMPRESSION: 1.Very low probability for PE. [facility]-[id number] Procedure Note Interface, Radiology Results Incoming - 01/20/2017 9:36 AM CDT PROCEDURE: NM LUNG VENTILATION PERFUSION INDICATION: Chest pain. COMPARISON: Chest x-ray dated 01/19/2017. TECHNIQUE: Planar ventilation images were acquired after the inhalation of 15 mCi of Xe-133 gas. Planar perfusion images were acquired after the IV adminstration of 5 mCi of Tc-99m MAA. FINDINGS: Ventilation images demonstrate uniform ventilation to both lungs. Washout images demonstrate no significant gas trapping. Perfusion images demonstrate small defects in the left lung periphery. No large size defects. Comparison chest x-ray did not show a confluent infiltrate. IMPRESSION: 1. Very low probability for PE. [facility]-[id number] Troponin (01/20/2017 4:15 AM)Only the most recent of3 resultswithin the time period is included. Component Value Ref Range Troponin <0.30 0.00 - 0.30 ng/mL Comment: 0.30 - 1.49 ng/mlMay indicate increased risk of acute coronary syndrome. >=1.5 ng/mlConsistent with acute myocardial infarction. The diagnostic value of a single normal or non-diagnostic result is questionable.Serial samples at 2-6 hour intervals are required to rule out acute myocardial injury. Specimen Performing Laboratory Plasma specimen [facility] DEPARTMENT OF PATHOLOGY AND GENOMIC MEDICINE [address] [place] [address] CT Head Wo Contrast (01/20/2017 2:30 AM) Specimen Performing Laboratory [facility] [address] [place] [address] Narrative EXAMINATION: CT HEAD WO CONTRAST CLINICAL HISTORY: FOCAL NEURO DEFICITNEWFIXED OR WORSENING 24 HOURS COMPARISON:None TECHNIQUE: Noncontrast enhanced images of the brain were obtained from the skull base to the vertex. Both soft tissue and bone reconstruction algorithms were performed. CT imaging was performed with iterative reconstruction technique and/or automated exposure control to reduce radiation dose. IMPRESSION: No intracranial hemorrhage, mass, mass effect, or herniation. No acute osseous abnormalities. Mild mucosal thickening of right maxillary sinus. [facility]-[id number] Procedure Note [facility], Radiology Results Incoming - 01/20/2017 2:46 AM CDT EXAMINATION: CT HEAD WO CONTRAST CLINICAL HISTORY: FOCAL NEURO DEFICIT NEW FIXED OR WORSENING 24 HOURS COMPARISON: None TECHNIQUE: Noncontrast enhanced images of the brain were obtained from the skull base to the vertex. Both soft tissue and bone reconstruction algorithms were performed. CT imaging was performed with iterative reconstruction technique and/or automated exposure control to reduce radiation dose. IMPRESSION: No intracranial hemorrhage, mass, mass effect, or herniation. No acute osseous abnormalities. Mild mucosal thickening of right maxillary sinus. [facility]-[id number] D-dimer (01/19/2017 11:51 PM) Component Value Ref Range D-dimer 1.10 (H) 0.00 - 0.40 ug/mL FEU Comment: Units are ug/ml Fibrinogen Equivalent Unit. When combined with low clinical probability, D-dimer results of less than 0.5 ug/ml FEU have a good negativepredictive value in excluding PE or DVT. For D-dimer results greater than 0.5ug/ml FEU further testing is indicated if PE or DVT is suspectedclinically. Elevated D-dimer results have been reported in DVT, PE, and DIC cases and may indicate the presence of a clot. D-dimer results may be elevated due to old age, , inflammatory diseases, trauma, post-operative states, sepsis, and malignancies. Specimen Performing Laboratory Blood [facility] DEPARTMENT OF PATHOLOGY AND GENOMIC MEDICINE [address] [place] [address] XR Abdomen Acute Inc Chest (01/19/2017 8:36 PM) Specimen [facility]forming Laboratory [facility] [address] [place] [address] Narrative EXAM: XR ABDOMEN ACUTE INC CHEST CLINICAL HISTORY: check pd cath COMPARISON:None. IMPRESSION: A catheter is identified at the tubing overlying the left mid abdomen and extending into the left pelvis. Nonspecific, nonobstructive bowel gas pattern. No free intraperitoneal gas or air-fluid levels visualized. The lungs are clear. No pleural effusion or pneumothorax. The cardiomediastinal silhouette is magnified. No acute osseous abnormalities. Multilevel mild degenerative changes are noted. Vascular calcifications are noted. [facility]-[id number] Procedure Note Interface, Radiology Results Incoming - 01/19/2017 8:45 PM CDT EXAM: XR ABDOMEN ACUTE INC CHEST CLINICAL HISTORY: check pd cath COMPARISON: None. IMPRESSION: A catheter is identified at the tubing overlying the left mid abdomen and extending into the left pelvis. Nonspecific, nonobstructive bowel gas pattern. No free intraperitoneal gas or air-fluid levels visualized. The lungs are clear. No pleural effusion or pneumothorax. The cardiomediastinal silhouette is magnified. No acute osseous abnormalities. Multilevel mild degenerative changes are noted. Vascular calcifications are noted. [facility]-[id number] B natriuretic peptide (01/19/2017 7:55 PM) Component Value Ref Range BNP 717 (H) 0 - 100 pg/mL Specimen Performing Laboratory [facility] DEPARTMENT OF PATHOLOGY AND GENOMIC MEDICINE [address] [place] [address] CBC hemogram (11/24/2016 8:05 AM) Component Value Ref Range WBC 11.8 (H) 4.5 - 11.0 k/uL RBC 4.46 4.20 - 5.50 m/uL HGB 12.8 12.0 - 16.0 g/dL HCT 39.7 37.0 - 47.0 % MCV 89.0 82.0 - 100.0 fL MCH 28.7 27.0 - 34.0 pg MCHC 32.2 31.0 - 37.0 g/dL RDW - SD 42.4 37.0 - 55.0 fL MPV 11.0 6.9 - 11.0 fL Platelet count 279 150 - 400 K/uL Nucleated RBC 0.00 /100 WBC Specimen Performing Laboratory Blood [facility] DEPARTMENT OF PATHOLOGY AND GENOMIC MEDICINE [address] [place] [id number] after 10/17/2016 Insurance Payer Benefit Plan / Group Subscriber ID Type Phone Address MEDICARE MEDICARE PART A AND B xxxxxxxxxx Medicare [place], [place] MEDICAID MEDICAID xxxxxxxxx Medicaid
--- OUTSIDE RECORDS SUMMARY | 2017-10-18 13:00 | XMS REPORT ---
:1960 Author Organization eClinicalWorks Care Team Providers Name Role Blessing Webb Provider Role Unavailable Allergies No Known Allergies Problems Problem Type Condition Code Onset Dates Condition Status Problem Type 2 diabetes mellitus with E11.8 Active unspecified complications Problem End stage renal disease N18.6 Active Problem Type 2 diabetes mellitus with E11.65 Active hyperglycemia Problem PVD (peripheral vascular disease) I73.9 Active Problem HTN (hypertension), benign I10 Active Problem Adenomatous polyp of colon, D12.6 Active unspecified part of colon Problem Mixed hyperlipidemia E78.2 Active Problem Anemia of chronic disease D63.8 Active Problem Depression with anxiety F41.8 Active Problem FPC current use of insulin Z79.4 Active Problem Subclinical hypothyroidism E03.9 Active Problem Migraine without aura and without G43.009 Active status migrainosus, not intractable Problem GERD without esophagitis K21.9 Active Problem Dependence on renal dialysis Z99.2 Active Medications No Known Medications Results No Known Results Summary Purpose [employer]gents Submission
--- OUTSIDE RECORDS SUMMARY | 2017-10-18 13:00 | XMS REPORT ---
[...] Problem Depression with anxiety F41.8 Active Problem longterm current use of insulin Z79.4 Active Problem Subclinical hypothyroidism E03.9 Active Problem Migraine without aura and without G43.009 Active status migrainosus, not intractable Problem GERD without esophagitis K21.9 Active Problem Dependence on renal dialysis Z99.2 Active Medications No Known Medications Results No Known Results Summary Purpose [employer]Clinical[employer]oDiagn[employer]ix Submission
--- OUTSIDE RECORDS SUMMARY | 2017-10-18 13:00 | XMS REPORT ---
:1960 Author Organization eClinicalWorks Care Team Providers Name Role Blessing Webb Provider Role Unavailable Allergies, Adverse Reactions, Alerts Substance Reaction Event Type Meclizine HCl put her in the hospital Drug Allergy Lyrica put her in the hospital Drug Allergy Problems Problem Type Condition Code Onset Dates [...] Problem Depression with anxiety F41.8 Active Problem intermediate current use of insulin Z79.4 Active Problem Subclinical hypothyroidism E03.9 Active Problem Migraine without aura and without G43.009 Active status migrainosus, not intractable Problem GERD without esophagitis K21.9 Active Assessment Encounter for wound re-check Z51.89 Active Problem Dependence on renal dialysis Z99.2 Active Medications Medication Code Code Instructions Start End Status Dosage System Date Date Plavix [facility] 04497250217 75 MG Orally Active 1 tablet Once a day Furosemide ND 30438121677 40 MG Orally Active 1 tablet Once a day Hydrocortisone ND 24413938548 1 % Externally Active 1 application Twice a day to affected area Senna [facility] 55847843779 8.6 MG Orally Active 2 tablets at Once OR TWICE bedtime as DAILY PRN needed Vitamin D ND 95047791406 72993 UNIT Active 1 capsule (Ergocalciferol) Orally Calcium Carbonate [facility] 16049378031 750 MG Orally Active 1 tablet Antacid Once a day Lipitor ND 26310116192 40 MG Orally Active 1 tablet Once a day Tresiba FlexTouch [facility] 35826000116 200 UNIT/ML Active 12-16 UNITS Subcutaneous QHS Tylenol with [facility] 42945550953 300-30 MG Active 1 tablet as Codeine #3 Orally TWICE needed DAILY PRN PAIN Carvedilol [facility] 05577377372 25 MG Orally Active not defined TWICE DAILY Aspirin 81 [facility] 82854910318 81 MG Orally Active 1 tablet Once a day Results No Known Results Summary Purpose eClinicalWorks Submission
--- OUTSIDE RECORDS SUMMARY | 2017-10-18 13:00 | XMS REPORT ---
[...] Problem Depression with anxiety F41.8 Active Problem custodial current use of insulin Z79.4 Active Problem Subclinical hypothyroidism E03.9 Active Problem Migraine without aura and without G43.009 Active status migrainosus, not intractable Assessment Laceration of great toe of right S91.111A Active foot, foreign body presence unspecified, nail damage status unspecified, initial encounter Problem GERD without esophagitis K21.9 Active Assessment Encounter for wound re-check Z51.89 Active Problem Dependence on renal dialysis Z99.2 Active Medications Medication Code Code Instructions Start End Status Dosage System Date Date Gentamicin ND 0 Active not defined Tylenol with [facility] 95456337942 300-30 MG Active 1 tablet as Codeine #3 Orally TWICE needed DAILY PRN PAIN Aspirin 81 ND 72935878900 81 MG Orally Active 1 tablet Once a day Vitamin D ND 74254620295 60051 UNIT Active 1 capsule (Ergocalciferol) Orally Sevelamer [facility] [address]-18 Active not defined Carbonate Aranesp (Albumin [facility] [address]-88 Active not defined Free) Hydrocortisone ND 95698624640 1 % Externally Active 1 application Twice a day to affected area Lipitor [facility] 37468366261 40 MG Orally Active 1 tablet Once a day Calcium Carbonate [facility] 95812836038 750 MG Orally Active 1 tablet Antacid Once a day Ergocalciferol [facility] [address]-64 Active not defined Tessalon Perles [facility] [address]-31 Active not defined Bisacodyl [facility] [address]-74 Active not defined Darbepoetin Marito [facility] [address]-33 Active not defined cyclobenzaprine ND 0 Active not defined Senna [facility] 39558589219 8.6 MG Orally Active 2 tablets at Once OR TWICE bedtime as DAILY PRN needed Tresiba FlexTouch [facility] 45099321028 200 UNIT/ML Active 12-16 UNITS Subcutaneous QHS Carvedilol [facility] 06288277336 25 MG Orally Active not defined TWICE DAILY Furosemide [facility] 72977261274 80 MG Orally Active 1 tablet Once a day Plavix [facility] 24998723358 75 MG Orally Active 1 tablet Once a day Calcitriol [facility] [address]-60 Active not defined Lisinopril [facility] [address]-95 Active not defined MiraLax [facility] [address]-85 Active not defined Amlodipine ND 0 Active not defined Besylate Tylenol Extra [facility] [address]-97 Active not defined Strength Renax ND 0 Active not defined Results No Known Results Summary Purpose eClinicalWorks Submission
--- OUTSIDE RECORDS SUMMARY | 2017-10-18 13:00 | XMS REPORT ---
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
--- OUTSIDE RECORDS SUMMARY | 2017-10-18 13:00 | XMS REPORT ---
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 Problem Subclinical hypothyroidism E03.9 Active Problem Migraine without aura and without G43.009 Active status migrainosus, not intractable Problem GERD without esophagitis K21.9 Active Assessment Laceration of right great toe S91.111A Active without foreign body present or damage to nail, initial encounter Problem Dependence on renal dialysis Z99.2 Active Medications Medication Code Code Instructions Start End Status Dosage System Date Date Aspirin 81 [facility] [id number] 81 MG Orally Active 1 tablet Once a day Calcium Carbonate [facility] [id number] 750 MG Orally Active 1 tablet Antacid Once a day Tylenol with [facility] 39295482944 300-30 MG Active 1 tablet as Codeine #3 Orally TWICE needed DAILY PRN PAIN Hydrocortisone ND 34994870551 1 % Externally Active 1 application Twice a day to affected area Augmentin [facility] [id number] 875-125 MG August Active 1 tablet Orally BID 2017 Vitamin D ND 86526704862 75267 UNIT Active 1 capsule (Ergocalciferol) Orally Furosemide ND 30923535451 40 MG Orally Active 1 tablet Once a day Senna ND 42943622579 8.6 MG Orally Active 2 tablets at Once OR TWICE bedtime as DAILY PRN needed Lipitor [facility] 96294899330 40 MG Orally Active 1 tablet Once a day Tresiba FlexTouch [facility] [id number] 200 UNIT/ML Active 12-16 UNITS Subcutaneous QHS Carvedilol [facility] 93109529116 25 MG Orally Active not defined TWICE DAILY Plavix [facility] [id number] 75 MG Orally Active 1 tablet Once a day Results No Known Results Summary Purpose eClinicalWorks Submission
--- OUTSIDE RECORDS SUMMARY | 2017-10-18 13:00 | XMS REPORT ---
:1960 [facility] Address [address] [place] [address] Care Team Providers Name Role Phone FANY SCHOFIELD Unavailable Unavailable COURTNEYSTEVEN Unavailable Unavailable Problems This patient has no known problems. Allergies, Adverse Reactions, Alerts This patient has no known allergies or adverse reactions. Medications This patient has no known medications. Results Test Description Test Time Test Comments Text Results Atomic Results Result Comments POCT-GLUCOSE METER 2017-03-20 15:38:00 Test Item Value Reference Range Comments POC-GLUCOSE METER (BEAKER) (test 110 mg/dL 70-110 TESTED AT [address] gekg=6577) [facility] [address] POCT-GLUCOSE [id number] 14:12:00 Test Item Value Reference Range Comments POC-GLUCOSE METER (BEAKER) 83 mg/dL 70-110 TESTED AT [address] (test wbbr=2292) [place] [id number] BASIC METABOLIC [id number] 13:37:00 Test Item Value Reference Range Comments SODIUM (BEAKER) (test 140 meq/L 136-145 uiff=645) POTASSIUM (BEAKER) (test 3.8 meq/L 3.5-5.1 ktqd=039) CHLORIDE (BEAKER) (test 103 meq/L 98-107 dard=489) CO2 (BEAKER) (test 25 meq/L 22-29 cwjy=156) BLOOD UREA NITROGEN 47 mg/dL 7-21 (BEAKER) (test gjcg=164) CREATININE (BEAKER) (test 8.11 mg/dL 0.57-1.25 lxec=676) GLUCOSE RANDOM (BEAKER) 88 mg/dL 70-105 (test ikix=058) CALCIUM (BEAKER) (test 7.3 mg/dL 8.4-10.2 wtdr=519) EGFR (BEAKER) (test 5 mL/min/1.73 sq m ESTIMATED GFR IS NOT xwlq=6097) ACCURATE CREATININE CLEARANCE IN PREDICTING GLOMERULAR FILTRATION RATE. ESTIMATED GFR IS NOT APPLICABLE FOR DIALYSIS PATIENTS. [id number] 13:24:00 Test Item Value Reference Range Comments PROTIME (BEAKER) (test ilxv=702) 14.3 seconds 11.7-14.7 INR (BEAKER) (test ijxq=222) 1.1 <=5.9 PARTIAL THROMBOPLASTIN TIME (BEAKER) (test 33.0 seconds 22.5-36.0 eeaq=883) RECOMMENDED COUMADIN/WARFARIN INR THERAPY RANGESSTANDARD DOSE: 2.0 - 3.0 Includes: PROPHYLAXIS forvenous thrombosis, systemic embolization; TREATMENT for venous thrombosis and/or pulmonary embolus.HIGH RISK: Target INR is 2.5-3.5 for patients with mechanical heart valves.CBC (HEMOGRAM ONLY)2017-03-20 13:09:00 Test Item Value Reference Range Comments WHITE BLOOD CELL COUNT (BEAKER) (test dzeq=007) 13.6 K/ L 3.5-10.5 RED BLOOD CELL COUNT (BEAKER) (test bgwr=675) 3.90 M/ L 3.93-5.22 HEMOGLOBIN (BEAKER) (test jnqv=815) 11.0 GM/DL 11.2-15.7 HEMATOCRIT (BEAKER) (test reev=936) 35.2 % 34.1-44.9 MEAN CORPUSCULAR VOLUME (BEAKER) (test bjvn=341) 90.3 fL 79.4-94.8 MEAN CORPUSCULAR HEMOGLOBIN (BEAKER) (test 28.2 pg 25.6-32.2 pkfd=320) MEAN CORPUSCULAR HEMOGLOBIN CONC (BEAKER) (test 31.3 GM/DL 32.2-35.5 mwrj=272) RED CELL DISTRIBUTION WIDTH (BEAKER) (test 13.6 % 11.7-14.4 gmxk=209) PLATELET COUNT (BEAKER) (test andn=586) 321 K/CU MM 150-450 MEAN PLATELET VOLUME (BEAKER) (test bhix=536) 11.1 fL 9.4-12.3 NUCLEATED RED BLOOD CELLS (BEAKER) (test 0 /100 WBC 0-0 smdy=347) OCCULT BLOOD, [id number] 16:13:00 Test Item Value Reference Range Comments FECAL OCCULT BLOOD (BEAKER) (test hqrt=427) Negative Negative OCCULT BLOOD, [id number] 16:13:00 Test Item Value Reference Range Comments FECAL OCCULT BLOOD (BEAKER) (test cybr=525) Positive Negative AB SPECIFICITY CLASS [id number] 11:48:00 Test Item Value Reference Range Comments DATE OF SERUM (BEAKER) (test dres=0117) [id number] SERUM # (BEAKER) (test gkdo=8747) 65866 AB SPECIFICITY CLASS II (BEAKER) (test See Scanned Report tmkv=3050) AB SPECIFICITY CLASS [id number] 11:48:00 Test Item Value Reference Range Comments DATE OF SERUM (BEAKER) (test kdxb=2431) [id number] SERUM # (BEAKER) (test xtgk=9006) 89695 AB SPECIFICITY CLASS I (BEAKER) (test otnc=7740) HLA [id number] 13:00:00 Test Item Value Reference Range Comments HLA RESULT (BEAKER) (test pksu=5528) See Scanned Report HLA-A AG1 (BEAKER) (test aeix=6852) HLA-A AG2 (BEAKER) (test wcwb=1699) HLA-B AG1 (BEAKER) (test kykc=7300) HLA-B AG2 (BEAKER) (test gwyj=6812) HLA-C AG1 (BEAKER) (test oofp=2824) HLA-C AG2 (BEAKER) (test ctlq=1548) HLA-DR AG1 (BEAKER) (test tczb=0933) HLA-DR AG2 (BEAKER) (test jlfy=4923) HLA-DQ AG1 (BEAKER) (test yfpr=7986) HLA-DQ AG2 (BEAKER) (test marv=7516) HLA-DRW (BEAKER) (test miyz=9237) URINE [id number] 13:11:00 Test Item Value Reference Range Comments CULTURE (BEAKER) (test dnny=9470) >100,000 col/mL skin nino CYTOMEGALOVIRUS ANTIBODY, [id number] 12:04:00 Test Item Value Reference Range Comments CYTOMEGALOVIRUS IGG ANTIBODY (BEAKER) (test Positive oauy=833) CYTOMEGALOVIRUS ANTIBODY, [id number] 12:04:00 Test Item Value Reference Range Comments CYTOMEGALOVIRUS IGM ANTIBODY (BEAKER) (test Negative klft=448) EBV-VCA ANTIBODY, [id number] 12:04:00 Test Item Value Reference Range Comments KELLY-CARLOS VCA IGG (BEAKER) (test isxz=392) Positive EBV-VCA ANTIBODY, [id number] 12:04:00 Test Item Value Reference Range Comments KELLY-CARLOS VCA IGM (BEAKER) (test zzbx=915) Negative VARICELLA ZOSTER ANTIBODY, [id number] 11:20:00 Test Item Value Reference Range Comments VARICELLA ZOSTER IGG (AL) (BEAKER) (test adci=2155) 1.6 Al VARICELLA ZOSTER RESULT INTERPRETATIONS: <=0.8 Al Nonreactive: Presumed non-immune to VZV 0.9-1.0 Al Equivocal >=1.1 Al Reactive: Presumed immune to [id number] 09:05:00 Test Item Value Reference Range Comments RPR SCREEN (BEAKER) (test yqtp=340) Nonreactive Nonreactive HEPATITIS B SURFACE [id number] 15:05:00 Test Item Value Reference Range Comments HEPATITIS B SURFACE ANTIBODY (BEAKER) (test < mIU/mL <8.0 xpgi=341) HEPATITIS B SURFACE [id number] 15:04:00 Test Item Value Reference Range Comments HEPATITIS B SURFACE ANTIGEN (2) (BEAKER) (test Nonreactive Nonreactive lagp=8558) HEPATITIS B CORE ANTIBODY, [id number] 15:04:00 Test Item Value Reference Range Comments HEPATITIS B CORE IGM ANTIBODY (BEAKER) (test Nonreactive Nonreactive dznl=679) HEPATITIS C [id number] 15:04:00 Test Item Value Reference Range Comments HEPATITIS C ANTIBODY (BEAKER) (test gnmq=165) Nonreactive Nonreactive HIV-1 ANTIGEN WITH HIV-1/2 [id number] 15:04:00 Test Item Value Reference Range Comments HIV-1 ANTIGEN WITH HIV 1\T\2 ANTIBODY (2) Nonreactive Nonreactive (BEAKER) (test dxxm=2487) PTH, [id number] 14:34:00 Test Item Value Reference Range Comments PARATHYROID HORMONE INTACT (BEAKER) (test 424.6 pg/mL 8.5-72.5 segy=032) Effective 04/15/2014: Reference Range ChangeNew: 8.5-72.5 Previous: 15.0- 90.0HEMOGLOBIN [id number] 14:13:00 Test Item Value Reference Range Comments HEMOGLOBIN A1C (BEAKER) (test idzg=213) 8.0 % 4.3-6.1 URINALYSIS W/ [id number] 14:08:00 Test Item Value Reference Range Comments COLOR (BEAKER) (test elrr=520) Light Yellow CLARITY (BEAKER) (test dxvp=070) Hazy SPECIFIC GRAVITY UA (BEAKER) (test hieo=005) 1.010 1.001-1.035 PH UA (BEAKER) (test owqj=883) 8.0 5.0-8.0 PROTEIN UA (BEAKER) (test xcys=642) >600 mg/dL Negative GLUCOSE UA (BEAKER) (test oxdd=524) 500 mg/dL Negative KETONES UA (BEAKER) (test neyt=948) Negative Negative BILIRUBIN UA (BEAKER) (test viwv=097) Negative Negative BLOOD UA (BEAKER) (test hcee=670) Negative Negative NITRITE UA (BEAKER) (test jirt=694) Negative Negative LEUKOCYTE ESTERASE UA (BEAKER) (test abus=659) Negative Negative UROBILINOGEN UA (BEAKER) (test cmlw=610) 0.2 mg/dL 0.2-1.0 RBC UA (BEAKER) (test cebm=063) < /HPF WBC UA (BEAKER) (test iqam=112) 4 /HPF BACTERIA (BEAKER) (test bnel=497) Rare SQUAMOUS EPITHELIAL (BEAKER) (test ldlt=360) 9 /HPF CASTS (BEAKER) (test qwqa=2383) 5 /LPF SOURCE(BEAKER) (test drmg=5004) COMPREHENSIVE METABOLIC [id number] 13:28:00 Test Item Value Reference Range Comments TOTAL PROTEIN (BEAKER) 7.3 gm/dL 6.0-8.3 (test rrnf=100) ALBUMIN (BEAKER) (test 3.6 g/dL 3.5-5.0 cjqk=4618) ALKALINE PHOSPHATASE 96 U/L 40-150 (BEAKER) (test uqqd=451) BILIRUBIN TOTAL (BEAKER) 0.6 mg/dL 0.2-1.2 (test wxhw=893) SODIUM (BEAKER) (test 136 meq/L 136-145 tzio=882) POTASSIUM (BEAKER) (test 4.1 meq/L 3.5-5.1 emrp=146) CHLORIDE (BEAKER) (test 100 meq/L 98-107 suam=794) CO2 (BEAKER) (test 24 meq/L 22-29 nnuk=535) BLOOD UREA NITROGEN 31 mg/dL 7-21 (BEAKER) (test rklc=426) CREATININE (BEAKER) (test 5.33 mg/dL 0.57-1.25 qqun=844) GLUCOSE RANDOM (BEAKER) 300 mg/dL 70-105 (test lvgb=497) CALCIUM (BEAKER) (test 8.6 mg/dL 8.4-10.2 rujg=083) AST (SGOT) (BEAKER) (test 14 U/L 5-34 qiiy=889) ALT (SGPT) (BEAKER) (test 9 U/L 6-55 xwhx=834) EGFR (BEAKER) (test 8 mL/min/1.73 sq m ESTIMATED GFR IS NOT xxyk=2819) ACCURATE CREATININE CLEARANCE IN PREDICTING GLOMERULAR FILTRATION RATE. ESTIMATED GFR IS NOT APPLICABLE FOR DIALYSIS PATIENTS. URIC [id number] 13:06:00 Test Item Value Reference Range Comments URIC ACID (BEAKER) (test etoj=421) 4.3 mg/dL 2.6-7.2 [id number] 13:06:00 Test Item Value Reference Range Comments PHOSPHORUS (BEAKER) (test ipdy=255) 5.6 mg/dL 2.3-4.7 LIPID [id number] 13:06:00 Test Item Value Reference Range Comments TRIGLYCERIDES (BEAKER) (test zdza=388) 121 mg/dL CHOLESTEROL (BEAKER) (test kpuw=070) 138 mg/dL HDL CHOLESTEROL (BEAKER) (test phra=889) 55 mg/dL LDL CHOLESTEROL CALCULATED (BEAKER) (test 59 mg/dL blwv=100) Triglyceride Reference Range: Low Risk <150 Borderline 150- 199 High Risk 200-499 Very High Risk >=500Cholesterol Reference Range: Low Risk <200 Borderline 200-239 High Risk > 240HDL Cholesterol Reference Range: Low Risk >=60 High Risk <40LDL Cholesterol Reference Range: Optimal <100 Near Optimal 100-129 Borderline 130-159 High 160-189 Very High >=190GAMMA GLUTAMYL TRANSFERASE (GGT)2016-07-26 13:06:00 Test Item Value Reference Range Comments GAMMA GLUTAMYL TRANSFERASE (BEAKER) (test lqng=977) 16 U/L 9-64 LACTATE DEHYDROGENASE (LDH)2016-07-26 13:06:00 Test Item Value Reference Range Comments LACTATE DEHYDROGENASE (BEAKER) (test rluk=539) 364 U/L 125-220 CBC W/PLT COUNT & AUTO [id number] 12:47:00 Test Item Value Reference Range Comments WHITE BLOOD CELL COUNT (BEAKER) (test tbab=879) 8.5 K/ L 4.0-10.0 RED BLOOD CELL COUNT (BEAKER) (test sbnb=210) 4.74 M/ L 4.00-5.00 HEMOGLOBIN (BEAKER) (test ymcl=242) 13.3 GM/DL 12.0-15.0 HEMATOCRIT (BEAKER) (test yiud=280) 40.7 % 36.0-45.0 MEAN CORPUSCULAR VOLUME (BEAKER) (test mvoj=651) 85.8 fL 82.0-99.0 MEAN CORPUSCULAR HEMOGLOBIN (BEAKER) (test 28.0 pg 27.0-33.0 dmvt=040) MEAN CORPUSCULAR HEMOGLOBIN CONC (BEAKER) (test 32.6 GM/DL 32.0-36.0 made=368) RED CELL DISTRIBUTION WIDTH (BEAKER) (test 16.4 % 10.3-14.2 wmyn=761) PLATELET COUNT (BEAKER) (test kcew=170) 311 K/CU MM 150-430 MEAN PLATELET VOLUME (BEAKER) (test xbtb=647) 8.8 fL 6.5-10.5 NUCLEATED RED BLOOD CELLS (BEAKER) (test 0 /100 WBC 0-0 yhtt=014) NEUTROPHILS RELATIVE PERCENT (BEAKER) (test 74 % tsul=244) LYMPHOCYTES RELATIVE PERCENT (BEAKER) (test 19 % wlky=413) MONOCYTES RELATIVE PERCENT (BEAKER) (test 6 % nhhd=697) EOSINOPHILS RELATIVE PERCENT (BEAKER) (test 2 % ocmj=437) BASOPHILS RELATIVE PERCENT (BEAKER) (test 0 % qbrk=064) NEUTROPHILS ABSOLUTE COUNT (BEAKER) (test 6.30 K/ L 1.80-8.00 eoin=476) LYMPHOCYTES ABSOLUTE COUNT (BEAKER) (test 1.58 K/ L 1.48-4.50 opqc=685) MONOCYTES ABSOLUTE COUNT (BEAKER) (test 0.49 K/ L 0.00-1.30 nsup=053) EOSINOPHILS ABSOLUTE COUNT (BEAKER) (test 0.14 K/ L 0.00-0.50 vgwr=006) BASOPHILS ABSOLUTE COUNT (BEAKER) (test 0.02 K/ L 0.00-0.20 lykw=415) [id number] 12:39:00 Test Item Value Reference Range Comments PROTIME (BEAKER) (test toqv=291) 13.1 seconds 11.7-14.7 INR (BEAKER) (test gqlg=731) 1.0 <=5.9 PARTIAL THROMBOPLASTIN TIME (BEAKER) (test 31.8 seconds 22.5-36.0 vrjg=299) RECOMMENDED COUMADIN/WARFARIN INR THERAPY RANGESSTANDARD DOSE: 2.0 - 3.0 Includes: PROPHYLAXIS forvenous thrombosis, systemic embolization; TREATMENT for venous thrombosis and/or pulmonary embolus.HIGH RISK: Target INR is 2.5-3.5 for patients with mechanical heart valves.
--- NOTE | 2017-10-18 15:28 | RAD REPORT ---
EXAM DESCRIPTION: CT - CTHCSPWOC - 10/18/2017 3:10 pm CLINICAL HISTORY: Fall, head and neck injury COMPARISON: None. TECHNIQUE: Axial 5 mm thick images of the head were obtained. Axial 2 mm thick images of the cervic al spine were obtained with sagittal and coronal reconstruction images generated and reviewed. All CT scans are performed using dose optimization technique as appropriate and may include automated exposure control or mA/KV adjustment according to patient size. FINDINGS: No intracranial hemorrhage, mass, edema or acute intracranial finding. No suspicion for ac kami infarction. No extra-axial fluid collections. Mastoid air cells and paranasal sinuses are clear. No globe or orbit abnormality seen. Cervical body height and alignment are normal. No disk space narrowing. No fracture or acute bony abn ormality. Central canal detail is inherently limited. There is spray artifact created by middle here rings that could not be removed for imaging due to a cervical collar being in place. No paraspinal mass or hematoma. IMPRESSION: Negative CT head examination for acute or significant finding. Negative CT cervical spine examination for acute or significant finding.
[2017-10-18 16:13] LABS: Absolute Lymphocytes (CBC) 1.1 K/uL (0.7-4.9); Absolute Monocytes 0.5 K/uL (0.1-1.3); Absolute Neutrophil 4.2 K/uL (1.8-8.0); Basophils % 0.8 % (0-1.3); Eosinophils % 1.2 % (0-4.4); Hematocrit 31.5 % (36.0-45.0); Lymphocytes % 18.3 % (15.3-44.8); MCH 29.3 pg (27.0-35.0); MCV 90.7 fL (80-100); MPV 9.5 fL (7.6-11.3); Monocytes % 8.5 % (3.3-12.3); RBC Red Blood Cell Count 3.47 M/uL (3.86-4.86)
[2017-10-18 16:15] LABS: Protime INR 1.02
--- NOTE | 2017-10-18 16:15 | RAD REPORT ---
EXAM DESCRIPTION: RAD - Chest Single View - 10/18/2017 3:32 pm CLINICAL HISTORY: Chest pain, cough, recent fall COMPARISON: May 2016 TECHNIQUE: AP portable chest image was obtained 1512 hours . FINDINGS: Lungs are clear. Heart and vasculature are normal. No measurable pleural effusion and no p neumothorax. No acute bone findings seen. No gross rib deformity identified. Concerns for an acute ri b process could be addressed with dedicated rib films. No acute aortic finding. Dialysis catheter has been removed since the comparison. IMPRESSION: No acute cardiopulmonary process. No worrisome change from prior study.
--- NOTE | 2017-10-18 16:16 | RAD REPORT ---
EXAM DESCRIPTION: RAD - Pelvis - 10/18/2017 3:32 pm CLINICAL HISTORY: Fall, pelvic and hip pain COMPARISON: None. TECHNIQUE: AP imaging of the pelvis was obtained. FINDINGS: No fracture of the bony pelvis identified. Sacral ala appear to be intact. There is degene rative change at each SI joint. No fracture or dislocation of either proximal femur. Dense arterial tree calcifications present. Radiopaque tubing curled in the pelvic floor may be a per itoneal dialysis catheter. IMPRESSION: No fracture or acute finding seen.
--- NOTE | 2017-10-18 16:16 | RAD REPORT ---
EXAM DESCRIPTION: RAD - Lumbar Spine 3 Views - 10/18/2017 3:32 pm CLINICAL HISTORY: Fall, back pain, radiculopathy COMPARISON: None. FINDINGS: A three-view lumbar spine examination was performed. Lumbar bodies are normal in height an d alignment. No fracture or acute bony process seen. No disc space narrowing. Facet joint degenerativ e changes minimal. No pars defects identified. Peritoneal dialysis catheter is present in the left si de abdomen. IMPRESSION: Negative lumbar spine examination for acute finding.
[2017-10-18 16:19] LABS: Potassium 4.4 mEq/L (3.6-5.0)
[2017-10-18 16:25] LABS: Albumin 3.3 g/dL (3.2-5.5); Bilirubin Direct 0.1 mg/dL (0-0.2); Bilirubin Total 0.8 mg/dL (0.3-1.2); Magnesium 2.4 mg/dL (1.8-2.5); Protein, Total 7.1 g/dL (6.0-8.3)
[2017-10-18 16:50] LABS: CKMB Creatine Kinase MB 3.1 ng/ml (0.3-4.0)
[2017-10-18 17:57] LABS: Urine Specific Gravity 1.025 (1.005-1.030)
[2017-10-18 17:58] LABS: Urine Blood 1+ (NEG); Urine Glucose TRACE (NEG); Urine Protein 3+ (NEG); Urine Specific Gravity 1.025 (1.005-1.030)
--- NOTE | 2017-10-18 18:14 | EDPHYS ---
Physician Documentation [facility] Name: Elly Marshall Age: 57 yrs Sex: Female : 1960 Arrival Date: 10/18/2017 Time: 12:58 Bed 14 Private MD: ED Physician Mynor Pacheco HPI: 10/18 14:55 This 57 yrs old Female presents to ER via Wheelchair with complaints of Flu cp Symptoms. 14:55 general weakness and shortness of breath. Patient reports being weak and falling cp yesterday. Family was called to help patient get off ground. Patient reports she was diagnosed with flu today and prescribed tamiflu. 14:55 Onset: The symptoms/episode began/occurred gradually, and became worse today. Severity cp of symptoms: in the emergency department the symptoms are unchanged despite home interventions. 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 aj Historical: - Allergies: 13:06 Lyrica; aj - Home Meds: 13:06 aspirin 81 mg Oral chew 1 tab once daily [Active]; carvedilol 25 mg Oral tab 1 tab 2 aj times per day [Active]; Crestor 20 mg Oral tab 1 tab once daily [Active]; diltiazem HCl 120 mg Oral cp24 1 cap once daily [Active]; furosemide 20 mg Oral tab 1 tab once daily [Active]; NOVALOG 70/30 [Active]; Plavix 75 mg Oral tab 1 tab once daily [Active]; Prozac 20 mg Oral cap 1 cap 2 times per day [Active]; tramadol 50 mg Oral tab 1 tab twice a day [Active]; - PMHx: 13:06 CHF; Diabetes - IDDM; Hypertension; kidney disease; aj - PSHx: 13:06 ; Appendectomy; peritoneal Dialysis catheter to right abdomen; Dialysis aj catheter to right upper chest; - Immunization history:: Adult Immunizations up to date. - Social history:: Smoking status: Patient/guardian denies using tobacco. ROS: 15:00 Constitutional: Negative for body aches, chills, fever, poor PO intake. cp 15:00 Eyes: Negative for injury, pain, redness, and discharge. cp 15:00 ENT: Negative for drainage from ear(s), ear pain, sore throat, difficulty swallowing, difficulty handling secretions. 15:00 Cardiovascular: Positive for chest pain, Negative for edema, palpitations. 15:00 Respiratory: Positive for cough, with no reported sputum, shortness of breath, Negative for hemoptysis, wheezing. 15:00 Abdomen/GI: Negative for abdominal pain, nausea, vomiting, and diarrhea, constipation, anorexia, black/tarry stool, rectal bleeding. 15:00 Back: Negative for decreased range of motion, pain at rest, pain with movement. 15:00 : Negative for urinary symptoms. 15:00 Skin: Negative for cellulitis, rash. 15:00 Neuro: Positive for general weakness, Negative for altered mental status, dizziness, headache, loss of consciousness, syncope, near syncope. 15:00 All other systems are negative. Exam: 15:07 Constitutional: The patient appears in no acute distress, alert, awake, cp non-diaphoretic, non-toxic, well developed, well nourished. 15:07 Head/Face: Normocephalic, atraumatic. cp 15:07 Eyes: Periorbital structures: appear normal, Pupils: equal, round, and reactive to cp light and accomodation, Extraocular movements: intact throughout, Conjunctiva: normal, no exudate, no injection, Sclera: no appreciated abnormality, Lids and lashes: appear normal, bilaterally. 15:07 ENT: External ear(s): are unremarkable, Ear canal(s): are normal, clear, TM's: dullness, bilaterally, Nose: is normal, Mouth: Lips: moist, Oral mucosa: pink and intact, moist, Posterior pharynx: is normal, airway is patent, no erythema, no exudate. 15:07 Neck: ROM/movement: is normal, is supple, without pain, no range of motions limitations, no meningismus, no nuchal rigidity. 15:07 Chest/axilla: Inspection: normal, Palpation: is normal, no crepitus, no tenderness. 15:07 Cardiovascular: Rate: normal, Rhythm: regular, Pulses: Pulses are 2+ in right radial artery and left radial artery. Edema: is not appreciated, JVD: is not appreciated. 15:07 Respiratory: the patient does not display signs of respiratory distress, Respirations: normal, no use of accessory muscles, no retractions, no splinting, no tachypnea, labored breathing, is not present, Breath sounds: are clear throughout, no decreased breath sounds, no stridor, no wheezing. 15:07 Abdomen/GI: Inspection: abdomen appears normal, Bowel sounds: active, all quadrants, Palpation: abdomen is soft and non-tender, in all quadrants, rebound tenderness, is not appreciated, voluntary guarding, is not appreciated, involuntary guarding, is not appreciated. 15:07 Back: pain, is absent, ROM is normal. 15:07 Skin: cellulitis, is not appreciated, no rash present. 15:07 Neuro: Orientation: to person, place \T\ time. Mentation: lucid, able to follow commands, Cerebellar function: is grossly normal, Motor: moves all fours, general weakness w/o focal deficits, Sensation: is normal. 15:47 ECG was reviewed by the Attending Physician. cp Vital Signs: 13:06 BP 115 / 50; Pulse 75; Resp 17; Temp 97.2; Pulse Ox 98% on R/A; Weight 81.65 kg; Height aj 5 ft. 2 in. (157.48 cm); 16:04 BP 192 / 70; Pulse 71; Resp 16; Pulse Ox 97% ; jl7 17:45 BP 130 / 64; Pulse 70; Resp 16; Pulse Ox 100% ; jl7 13:06 Body Mass Index 32.92 (81.65 kg, 157.48 cm) aj MDM: 14:38 Patient medically screened. cp 18:07 Physician consultation: Cory Raymond DO was called at 17:55, was contacted at 17:55, cp regarding consult, patient's condition, discussed results of chemistry that returned serum calcium of 6.8. Does not recommend replacement at this time. 18:12 Data reviewed: vital signs, nurses notes, lab test result(s), radiologic studies, plain cp films. 18:12 Test interpretation: by ED physician or midlevel provider: ECG, plain radiologic cp studies. 18:13 ED course: VSS. Reviewed results of labs, EKG and radiology studies. Discussed results cp with patient and offered to admit for observation and continued monitoring. Patient declines and requests to be discharged to home. 10/18 14:49 Order name: Basic Metabolic Panel; Complete Time: 17:09 cp 10/18 17:10 Interpretation: Normal except: NA 132; CL 93; BUN 64; CRE 13.12; GFR 3; CA 6.8. cp 10/18 14:49 Order name: BNP; Complete Time: 16:32 cp 10/18 16:43 Interpretation: BNP 124; Reviewed. cp 10/18 14:49 Order name: CBC with Diff; Complete Time: 16:32 cp 10/18 16:32 Interpretation: Normal except: RBC 3.47; HGB 10.2; HCT 31.5. cp 10/18 14:49 Order name: Ckmb; Complete Time: 17:09 cp 10/18 14:49 Order name: CPK; Complete Time: 17:09 cp 10/18 14:49 Order name: LFT's; Complete Time: 17:09 cp 10/18 18:06 Interpretation: Normal except: GLOB 3.8; A/G 0.9. cp 10/18 14:49 Order name: Magnesium; Complete Time: 17:09 cp 10/18 17:51 Interpretation: MG 2.4; Reviewed. 10/18 14:49 Order name: PT-INR; Complete Time: 16:32 cp 10/18 14:49 Order name: Ptt, Activated; Complete Time: 16:32 10/18 14:49 Order name: Troponin (emerg Dept Use Only); Complete Time: 16:32 cp 10/18 17:36 Order name: Urine Dipstick--Ancillary (enter results); Complete Time: 18:05 [facility] 10/18 18:07 Interpretation: Normal except: UBLD 1+; UPROT 3+. cp 10/18 17:39 Order name: Urine --Ancillary (enter results); Complete Time: 18:05 [facility] 10/18 14:49 Order name: XRAY Chest (1 view); Complete Time: 16:32 cp 10/18 14:49 Order name: EKG; Complete Time: 14:50 cp 10/18 14:49 Order name: Cardiac monitoring; Complete Time: 16:06 cp 10/18 14:49 Order name: EKG - Nurse/Tech; Complete Time: 16:06 cp 10/18 14:49 Order name: IV Saline Lock; Complete Time: 16:07 10/18 14:49 Order name: Labs collected and sent; Complete Time: 16:07 cp 10/18 14:49 Order name: O2 Per Protocol; Complete Time: 16:07 cp 10/18 14:49 Order name: O2 Sat Monitoring; Complete Time: 16:06 cp 10/18 14:49 Order name: Urine Dipstick-Ancillary (obtain specimen); Complete Time: 17:33 10/18 14:51 Order name: C-Collar; Complete Time: 16:06 10/18 14:53 Order name: CT Head C Spine: general weakness, fall yesterday; Complete Time: 15:45 cp 10/18 15:47 Interpretation: Reviewed report. 10/18 14:55 Order name: Lumbar Spine (3 Views) XRAY; Complete Time: 16:32 cp 10/18 14:55 Order name: Pelvis XRAY; Complete Time: 16:32 cp 10/18 16:42 Interpretation: Report reviewed. 10/18 17:32 Order name: Urine Test (obtain specimen); Complete Time: 17:39 cp EC:47 Rate is 72 beats/min. Rhythm is regular. NC interval is normal. QRS interval is normal. cp QT interval is normal. No ST changes noted. Interpreted by me. Reviewed by me. Administered Medications: No medications were administered Disposition: 18:58 Co-signature as Attending Physician, Mynor Pacheco MD. rn Disposition: 10/18/17 18:14 Discharged to Home. Impression: Weakness - General, Hypocalcemia. - Condition is Stable. - Discharge Instructions: Weakness, Hypocalcemia, Adult. - Medication Reconciliation Form, Thank You Letter, Antibiotic Education, Prescription Opioid Use form. - Follow up: Private Physician; When: primary mechanical project engineer next 1-2 days; Reason: hypocalcemia. - Problem is new. - Symptoms are unchanged. Signatures: Dispatcher [employer] [facility] Jovita Crum RN Mynor Wharton MD MD rn Calderon, Audri, RN RN aa5 David Payton PA PA cp Corrections: (The following items were deleted from the chart) 17:10 17:09 Normal except: NA 132; CL 93; BUN 64; CRE 13.12; GFR 3. cp cp 17:42 17:09 Quevedo ordered. cp jl7 18:17 17:58 PHOSPHORUS+C.LAB.BRZ ordered. [facility] EDMS 18:55 18:14 10/18/2017 18:14 Discharged to Home. Impression: Weakness - General; aa5 Hypocalcemia. Condition is Stable. Forms are Medication Reconciliation Form, Thank You Letter, Antibiotic Education, Prescription Opioid Use. Follow up: Private Physician; When: primary mechanical project engineer next 1-2 days; Reason: hypocalcemia. Problem is new. Symptoms are unchanged. cp
--- NOTE | 2017-10-18 18:14 | ER ---
Nurse's Notes [facility] Name: Elly Marshall Age: 57 yrs Sex: Female : 1960 Arrival Date: 10/18/2017 Time: 12:58 Bed 14 Private MD: Diagnosis: Weakness-General;Hypocalcemia Presentation: 10/18 13:04 Presenting complaint: Patient states: DX with flu today by PCP and started tamiflu. aj Patient reports she is not feeling better. SOB and generalized weakness. Transition of care: patient was not received from another setting of care. Onset of symptoms was October 13, 2017. Care prior to arrival: None. 13:04 Method Of Arrival: Wheelchair aj 13:04 Acuity: RONAK 3 aj Triage Assessment: 13:06 General: Appears in no apparent distress. uncomfortable, Behavior is calm, cooperative, aj appropriate for age. Pain: Denies pain. Neuro: Level of Consciousness is awake, alert, obeys commands, Oriented to person, place, time, situation, Appropriate for age. Respiratory: Reports shortness of breath cough that is Airway is patent Respiratory effort is even, unlabored, Respiratory pattern is regular, symmetrical, Onset: The symptoms/episode began/occurred gradually, the patient has mild shortness of breath. Derm: Skin is intact, is healthy with good turgor, Skin is pink, warm \T\ dry. normal. 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-menopause aj Historical: - Allergies: 13:06 Lyrica; aj - Home Meds: 13:06 aspirin 81 mg Oral chew 1 tab once daily [Active]; carvedilol 25 mg Oral tab 1 tab 2 aj times per day [Active]; Crestor 20 mg Oral tab 1 tab once daily [Active]; diltiazem HCl 120 mg Oral cp24 1 cap once daily [Active]; furosemide 20 mg Oral tab 1 tab once daily [Active]; NOVALOG 70/30 [Active]; Plavix 75 mg Oral tab 1 tab once daily [Active]; Prozac 20 mg Oral cap 1 cap 2 times per day [Active]; tramadol 50 mg Oral tab 1 tab twice a day [Active]; - PMHx: 13:06 CHF; Diabetes - IDDM; Hypertension; kidney disease; aj - PSHx: 13:06 ; Appendectomy; peritoneal Dialysis catheter to right abdomen; Dialysis aj catheter to right upper chest; - Immunization history:: Adult Immunizations up to date. - Social history:: Smoking status: Patient/guardian denies using tobacco. Screenin:00 Abuse screen: Denies threats or abuse. Denies injuries from another. Nutritional jl7 screening: No deficits noted. Tuberculosis screening: No symptoms or risk factors identified. Fall Risk IV access (20 points). Ambulatory Aid- None/Bed Rest/Nurse Assist (0 pts). Gait- Weak (10 pts.). Mental Status- Oriented to own ability (0 pts). Total Kurtz Fall Scale indicates Low Risk Score (25-44 pts). Fall prevention measures have been instituted. Side Rails Up X 2 Placed close to Nursing Station Frequent Obs/Assesments occuring Family Present and informed to notify staff if they need to leave bedside As available Patient and Family Educated on Fall Prevention Program and strategies. Assessment: 14:35 General: Appears in no apparent distress. uncomfortable, Behavior is calm, cooperative. jl7 Pain: Complains of pain in anterior aspect of left upper chest, mid-sternal area and right sternocleidomastoid Pain currently is 9 out of 10 on a pain scale. Pain began 1 day ago. Is continuous. Neuro: Level of Consciousness is awake, alert, obeys commands, Oriented to person, place, time, situation. Cardiovascular: Patient's skin is warm and dry. Rhythm is regular. Respiratory: Airway is patent Respiratory effort is even, unlabored, Respiratory pattern is regular, symmetrical, Breath sounds are clear bilaterally. GI: No signs and/or symptoms were reported involving the gastrointestinal system. : No signs and/or symptoms were reported regarding the genitourinary system. EENT: No signs and/or symptoms were reported regarding the EENT system. Derm: Skin is pink, warm \T\ dry. Musculoskeletal: No signs and/or symptoms reported regarding the musculoskeletal system. 15:03 Reassessment: pt to CT. jl7 16:00 Reassessment: Patient and/or family updated on plan of care and expected duration. Pain jl7 level reassessed. Patient is alert, oriented x 3, equal unlabored respirations, skin warm/dry/pink. 17:30 Reassessment: Pt refused straight catg. Ambulated pt to bathroom, steady gate. jl7 17:45 Reassessment: Pt sitting in bed, family at bedside, no signs of distress noted at this jl7 time. Vital Signs: 13:06 BP 115 / 50; Pulse 75; Resp 17; Temp 97.2; Pulse Ox 98% on R/A; Weight 81.65 kg; Height aj 5 ft. 2 in. (157.48 cm); 16:04 BP 192 / 70; Pulse 71; Resp 16; Pulse Ox 97% ; jl7 17:45 BP 130 / 64; Pulse 70; Resp 16; Pulse Ox 100% ; jl7 13:06 Body Mass Index 32.92 (81.65 kg, 157.48 cm) aj ED Course: 12:58 Patient arrived in ED. sb2 13:05 Triage completed. aj 13:06 Arm band placed on left wrist. Patient placed in waiting room, Patient notified of wait aj time. 14:35 David Payton PA is PHCP. cp 14:35 Mynor Pacheco MD is Attending Physician. cp 15:[address] via stretcher. mw3 15:06 Shine Jack, LADAN is Primary Nurse. jl7 15:10 CT Head C Spine: general weakness, fall yesterday In Process Unspecified. EDMS 15:12 CT completed. Patient tolerated procedure well. Patient moved back from CT. nj 15:31 X-ray completed. Patient tolerated procedure well. Patient moved back from radiology. jb2 15:32 XRAY Chest (1 view) In Process Unspecified. EDMS 15:32 Lumbar Spine (3 Views) XRAY In Process Unspecified. EDMS 15:32 Pelvis XRAY In Process Unspecified. EDMS 15:47 EKG done, by coding technician. reviewed by David WHELAN. sm3 16:00 Patient has correct armband on for positive identification. Placed in gown. Bed in low jl7 position. Call light in reach. Side rails up X2. cardiac monitor technician on. Pulse ox on. NIBP on. 16:07 Initial lab(s) drawn, by me, sent to lab. Inserted saline lock: 20 gauge in left jl7 antecubital area, using aseptic technique. Blood collected. 16:43 Notified Nurse Practitioner and/or Physician Rotary Shear Cutter of a critical lab result(s), hb Creat 13.12, calcium 6.8. Administered Medications: No medications were administered Outcome: 18:14 Discharge ordered by . cp 18:55 Patient left the ED. aa5 Signatures: Dispatcher [employer] EDJovita Tena, RN RN Valentin Griffin Audri RN RN aa5 David Payton PA PA cp Baxter, Heather, RN RN Naveen Hong Jahala, RN RN jl7 Fabby Cox 2 Magali Dhaliwal 3 Trish Weinstein 3
[2017-10-18 19:21] VITALS: TEMP 97.2
[2017-10-18 19:23] VITALS: BP 130/64; O2SAT 100
--- NOTE | 2017-10-18 22:52 | EKG ---
Test Date: 2017-10-18 Test Time: 15:42:01 Traveling Auditor: GERARDO MEASUREMENT RESULTS: Intervals: Rate: 72 NE: 132 QRSD: 80 QT: 436 QTc: 477 [place]: P: 44 NE: 132 QRS: 27 T: 35 INTERPRETIVE STATEMENTS: Normal sinus rhythm Septal infarct, age undetermined Abnormal ECG Compared to ECG 06/13/2016 14:30:22 No significant changes Electronically Signed On 10-18-17 22:51:31 CDT by Jefry Bautista
== END 2017-10-18 18:55 | disposition home or self-care (01) ==
LOC: ER 12:55
DX: E83.51 Hypocalcemia (principal); I10 Essential (primary) hypertension; E11.9 Type 2 diabetes mellitus without complications; N18.9 Chronic kidney disease, unspecified; Z79.01 Long term (current) use of anticoagulants; Z79.82 Long term (current) use of aspirin; Z79.4 Long term (current) use of insulin; Z88.8 Allergy status to other drugs, medicaments and biological substances; Z99.2 Dependence on renal dialysis
CPT/HCPCS: 36415; 70450; 71045; 72100; 72125; 72170; 80048; 80076; 81003; 81025; 82550; 82553; 83735; 83880; 84484; 85025; 85610; 85730; 93005; 99285

== ENCOUNTER 2017-10-22 23:02 | Observation (INO) | payer OTHER ==
--- OUTSIDE RECORDS SUMMARY | 2017-10-22 23:06 | XMS REPORT | Clinical Summary ---
:1960 Author Organization [facility] Address [address] [place] [address] Phone Care Team Providers Name Role Phone [...] for PVD ESRD (end stage renal disease) ([facility]) 11/22/2016 Diabetic nephropathy associated with type 2 diabetes mellitus ([facility]) 11/22/2016 H/O stroke without residual deficits 11/22/2016 Last Assessment & Plan: Patient reports residual right side weakness Proliferative diabetic retinopathy of both eyes without macular edema 2016 associated with type 2 diabetes mellitus ([facility]) Diabetic polyneuropathy associated with type 2 diabetes mellitus ([facility]) 2016 Hyperlipidemia, unspecified hyperlipidemia type 11/22/2016 Secondary hyperparathyroidism of renal origin ([facility]) 11/22/2016 PVD (peripheral vascular disease) ([facility]) 11/22/2016 Last Assessment & Plan: Mild claudication [...] of the appt) 03/20/2017 Hospital Encounter Sivan Garber MD Diabetic nephropathy associated with type 2 [...] MD Pedro (end stage renal disease) after 10/21/2016 Family History Medical History Relation Name Comments [...] Taken Blood Pressure 134/68 04/04/2017 9:52 AM 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 POLISHER Pulse 80 04/04/2017 9:52 AM ENGRAVINGS POLISHER Temperature 36.7 C (98.1 F) 04/04/2017 9:52 AM ENGRAVINGS POLISHER Respiratory Rate 20 04/04/2017 9:52 AM ENGRAVINGS POLISHER Oxygen Saturation 97% 04/04/2017 9:52 AM ENGRAVINGS POLISHER Inhaled Oxygen Concentration - - Weight 82.8 kg (182 lb 8 oz) 04/04/2017 9:52 AM ENGRAVINGS POLISHER Height 157.5 cm (5' 2") 04/04/2017 9:52 AM ENGRAVINGS POLISHER Body Mass Index 33.38 04/04/2017 9:52 AM ENGRAVINGS POLISHER Plan of Treatment Health Maintenance Due Date Last Done Comments INFLUENZA VACCINE 02/26/2018 Implants Implanted Type Area Carpet Loom Fixer Device Expiration Model / Identifier Date Serial / Lot Device Clsr Angio-Seal Vip 6fr [id number] - [id number] Cardiovascular Right: ST TAMIE 01/26/2018 [id number] / Implanted: Qty: 1 on 03/20/2017 by Sivan Garber MD [employer] MED:CARDIAC / SURG [id number] Procedures Procedure Name Priority Date/Time Associated Diagnosis Comments ABD AO & LOWER EXT 03/20/2017 5:30 PM CDT Z01.810 ANGIOS/ POSS PPI Case Notes (2)CASE POP6 LEFT CATH /CORONARY ANGIOS/ POSS PCI BILATERAL LOWER EXT W/ RUNNOFFS L CATH & PCI 03/20/2017 5:30 PM CDT Z01.810 Case Notes (2)CASE POP6 LEFT CATH /CORONARY ANGIOS/ POSS PCI BILATERAL LOWER EXT W/ RUNNOFFS after 10/21/2016 Results VASCULAR DIAGRAM -SCAN (03/29/2017 11:12 AM)Only the most recent of4 resultswithin the time period is included.CARDIAC CATH REPORT - SCAN (2016 6:30 PM)POC-Glucose meter (03/20/2017 3:35 PM)Only the most recent of2 resultswithin the time period is included. Component Value Ref Range POC-Glucose Meter 110Comment: TESTED AT [address] 70 - 110 mg/dL [address] Specimen Performing Laboratory Blood [facility] [address] [address] POCT , urine (03/20/2017 1:27 PM) Component Value Ref Range Test Urine, POC Negative Control line present?, POC Yes Background clear?, POC Yes UPT Cassette Lot #, POC [id number] UPT Cassette Expiration Date, POC 26/08/3018 Specimen Performing Laboratory Urine ECG 12 lead (03/20/2017 1:25 PM)Only the most recent of2 resultswithin the time period is included. Specimen Performing Laboratory GE MUSE Narrative Ventricular Rate 72 BPM Atrial Rate 72 BPM P-R Interval 134 ms QRS Duration 80 ms Q-T Interval 456 ms QTC Calculation(Bazett) 499 ms P [place] 45 degrees R [place] 59 degrees T [place] -12 degrees Normal sinus rhythm Nonspecific T [...] 456 ms QTC Calculation(Bazett) 499 ms P [place] 45 degrees R [place] 59 degrees T [place] -12 degrees Normal sinus rhythm Nonspecific T [...] 36.0 seconds Specimen Performing Laboratory Blood [facility] [address] [place] [address] Narrative RECOMMENDED COUMADIN/WARFARIN INR THERAPY RANGES STANDARD [...] 0 /100 WBC Specimen [place] [address] Basic Metabolic Panel (03/20/2017 12:40 PM) Component [...] FOR DIALYSIS PATIENTS. Specimen [place] [address] Stress Echo With Tracing (11/14/2016 2:07 PM) Specimen Performing Laboratory DIGISONICS Narrative Echocardiography Laboratory [address] [place] [address] Voice:[phone] Stress Echocardiogram Pat.Name:ELLY MARSHALL Emilee.ID:[id number] .Date: 11/14/2016 Refer.:SOUMYA GREENBERG Exam Time: 2:07:00 [...] - 11/14/2016 5:45 PM CDT Echocardiography Laboratory [address] [place] [address] Voice: [phone] Stress Echocardiogram Pat.Name: ELLY MARSHALL Pat.ID: [id number] St.Date: 11/14/2016 Refer.MD: SOUMYA GREENBERG Exam Time: [...] (55-75) Index 37.3 %/m2 Specimen Performing Laboratory [facility] Echocardiography Laboratory [address] [place] [address] Voice:[phone] Transthoracic Echocardiogram Pat.Name:ELLY MARSHALL Pat.ID:[id number] .Date: 11/14/2016 Refer.MD:SOUMYA GREENBERG Exam Time: 1:04:00 [...] leaflet thickening. A trace of mitral regurgitation. Gzcn-ye-pfxseavreazyop annular calcification. TV: A trace of tricuspid [...] As 17.9 cm2(4-11.6)* LV CI 3.85 l/min/m2 FDXXR083 ml (59-136) Index68.7 ml/m2 LV SV 86 ml LVESV 40 mlHR82 bpm Left Ventricle LV A% 49.3 %(36-64) LA Sng Plane LA Vol85.3 mlIndex 46.6 ml/m2 LA Area 26.3 cm2(8.8-23.4)* Parasternal Long [place] Ao An 2.03 cm (1.4-2.6) LV%fs 31.6 %(25-46) Ao Rtd2.39 cmLVPWd 1.29 cm IVSd1.27 cm LA Ds 3.97 cm (2.3-3.8)* LVIDd 5.79 cm (4.3-5.1)* LV Wmn 1.28 cm LVIDs 3.96 cm (2-4) DOPPLER LVOT LVOT For Flow [id number] cm/s (70-110) LVOT CO 8.66 l/min LVOT VTI33.3 cmLVOT CI 4.73 l/min/m2 LVOTpkPG4.63 mmHgLVOT Area 3.24 cm2 LVOTmnPG2.31 dkVnGI35 bpm LVOT SV108 ml Aortic Valve AV [...] - 11/14/2016 5:43 PM CDT Echocardiography Laboratory [address] [place] [address] Voice: [phone] Transthoracic Echocardiogram Pat.Name: ELLY MARSHALL Pat.ID: [id number] .Date: 11/14/2016 Refer.: SOUMYA GREENBERG Exam Time: [...] leaflet thickening. A trace of mitral regurgitation. Wibx-uu-yukqhaso mitral annular calcification. TV: A trace of [...] LA Area 26.3 cm2 (8.8-23.4)* Parasternal Long [place] Ao An 2.03 cm (1.4-2.6) LV%fs 31.6 [...] complete (11/14/2016 12:00 PM) Specimen Performing Laboratory [facility] FINAL REPORT Abdominal Ultrasound Clinical Diagnosis: Pretransplant [...] MD Report Verified Date/Time:11/14/2016 12:57:43 Reading Location: [address] Ultrasound Reading Room Procedure Note Interface, [...] Report Verified Date/Time: 11/14/2016 12:57:43 Reading Location: [address] Ultrasound Reading Room Blood typing, automated (11/14/2016 10:19 AM) Component Value Ref Range ABO/RH AUTOMATED (BEAKER) O POSITIVE Specimen Performing [place] [address] after 10/21/2016
--- OUTSIDE RECORDS SUMMARY | 2017-10-22 23:06 | XMS REPORT | Clinical Summary ---
:1960 Author Organization [facility] Address [address] [place] [address] Care Team Providers Name Role Phone Mark [...] Only General Surgery Marleny Jurado MA after 10/21/2016 Family History Medical History Relation [...] 36.1 C (96.9 F) 07/22/2017 8:52 AM [employer]BINE [employer]ER Respiratory Rate 18 07/22/2017 8:52 AM [employer]ER Oxygen Saturation 100% 07/22/2017 8:52 AM [employer] Inhaled Oxygen Concentration - - Weight 82.6 [...] 04/10/2018 04/10/2017, 04/10/2017 Implants Implanted Type Area Glass Wool Blanket Machine Feeder Device Expiration Model / Identifier Date Serial / Lot Peritoneal Dialysis Catheter Titan Extnd W/O Bead And Flange Catheter, N/A: DoubleRecall 03/27/2020 [id number] / Implanted: Qty: 1 on 11/24/2016 by Anival Ayers MD Dialysis Abdomen , [employer]ATIONAL, / [facility] [id number] Quadrant/No n Specific Procedures Procedure Name Priority Date/Time Associated Diagnosis Comments IL AN ELECTIVE Routine 07/21/2017 4:27 PM ENDOTRACHEAL AIRWAY [employer] Procedure Note - Sam Nick CRNA - 07/21/2017 4:27 PM [employer] Airway Date/Time: 07/21/2017 4:28 PM Performed by: [...] No Number of Attempts at Approach: 1 IL AN ELECTIVE ENDOTRACHEAL AIRWAY Routine 05/18/2017 2:14 PM [employer] Procedure Note - Dena Hardy CRNA - 05/18/2017 2:13 PM [employer] Airway Date/Time: 05/18/2017 2:00 PM Performed by: DENA HARDY Authorized by: MADHAV CASTILLO Location: OR Urgency: Elective Difficult Airway: No Resident/SUPERVISOR METALIZING/AA: DENA HARDY Performed by: resident/SUPERVISOR METALIZING/AA Preoxygenated with 100% O2: Yes Mask Ventilation: [...] MIN procedure are in the results section. IL AN ELECTIVE ENDOTRACHEAL Routine 01/26/2017 8:16 AM [...] REVISION HEMODIALYSIS Routine 01/25/2017 9:35 AM CDT IL INSERT NON-TUNNEL Routine 01/24/2017 1:02 PM Uremia Results for this CV CATH CDT End stage renal procedure are in disease on the results dialysis section. HEMODIALYSIS Routine 01/22/2017 1:30 PM CDT HEMODIALYSIS Routine 01/22/2017 9:59 AM CDT HEMODIALYSIS Routine 01/20/2017 3:22 PM CDT IL AN ELECTIVE Routine 11/24/2016 10:01 AM ENDOTRACHEAL AIRWAY CDT Procedure Note - Cyndy Baugh CRNA - 11/24/2016 10:00 AM CDT Airway Date/Time: 11/24/2016 9:46 AM Performed by: ELISE BAUGH Authorized by: MARLY CHILD Location: OR Urgency: Elective Difficult Airway: No Anesthesiologist: MARLY CHILD Resident/SUPERVISOR METALIZING: ELISE BAUGH Performed by: resident/SUPERVISOR METALIZING and anesthesiologist Preoxygenated with 100% O2: Yes [...] Number of Attempts at Approach: 1 after 10/21/2016 Results Estimated GFR (07/22/2017 6:00 AM)Only the [...] and Americans. Specimen Performing Laboratory Plasma specimen [facility] DEPARTMENT OF PATHOLOGY AND GENOMIC MEDICINE [address] [place] [address] CBC with platelet and differential (07/22/2017 6:00 [...] - 1.0 % Specimen Performing Laboratory Blood [facility] DEPARTMENT OF PATHOLOGY AND GENOMIC MEDICINE [address] [place] [address] Phosphorus level (07/22/2017 6:00 AM)Only the most recent of7 resultswithin the time period is included. Component Value Ref Range Phosphorus 9.0 (HH)Comment: Final results called to and read back by 2.4 - 4.5 mg/dL GUZMAN AMATO RN 07/22/2017 06:55 EXT Specimen Performing Laboratory Plasma specimen [facility] PATHOLOGY AND [address] [address] Magnesium level (07/22/2017 6:00 AM)Only the most recent of7 resultswithin the time period is included. Component Value Ref Range Magnesium 2.3 1.6 - 2.6 mg/dL Specimen Performing Laboratory Plasma specimen [facility] PATHOLOGY AND [address] [address] Basic metabolic panel (07/22/2017 6:00 AM)Only the [...] 10.2 mg/dL Specimen Performing Laboratory Plasma specimen [facility] PATHOLOGY AND [address] [address] Hepatitis B surface Ab, quantitative (07/21/2017 9:05 [...] Cellular and Tissue-Based Products (HCT/P). Performed by [employer], [address] [place] [address] [email or web address], Marc Monae MD - Lab. Director Specimen Performing Laboratory Serum [facility] [address] [place] [address] Hepatitis B surface antibody (07/21/2017 9:05 PM) Component Value Ref Range Hepatitis B surface Ab Reactive (A) Non-reactive Specimen Performing Laboratory Blood [facility] DEPARTMENT OF PATHOLOGY AND GENOMIC MEDICINE [address] [place] [address] Hepatitis B surface antigen (07/21/2017 9:05 PM)Only the most recent of2 resultswithin the time period is included. Component Value Ref Range Hepatitis B surface Ag Non-reactive Non-reactive Specimen Performing Laboratory Blood [facility] DEPARTMENT OF PATHOLOGY AND GENOMIC MEDICINE [address] [place] [address] POC glucose (07/21/2017 8:56 PM)Only the most recent of65 resultswithin the time period is included. Component Value Ref Range POC glucose 116 (H) 65 - 99 mg/dL Comment: RN Notified Meter ID: [id number] Director Of Individual Giving: Areli Hopkins Specimen Performing Laboratory [facility] DEPARTMENT OF PATHOLOGY AND GENOMIC MEDICINE [address] [place] [address] Partial thromboplastin time, activated (07/21/2017 12:41 PM)Only the most recent of4 resultswithin the time period is included. Component Value Ref Range PTT 31.2 23.0 - 36.0 sec Comment: PTT therapeutic range for unfractionated heparin is 61.0-112.0 seconds which corresponds to Anti-Xa 0.3-0.7 U/ml. Specimen Performing Laboratory Blood [facility] DEPARTMENT OF PATHOLOGY AND GENOMIC MEDICINE [address] [place] [address] Prothrombin time with INR (07/21/2017 12:41 PM)Only [...] vein thrombosis/pulmonary embolism. Specimen Performing Laboratory Blood [facility] DEPARTMENT OF PATHOLOGY AND [address] [address] Surgical pathology request (07/21/2017 7:52 AM) Component Value Ref Range Surgical pathology report See link below for PDF Lab Report Result status This is Final Report to [id number] Specimen Performing Laboratory [facility] DEPARTMENT OF PATHOLOGY AND [address] [address] Transfuse RBC (05/19/2017 5:47 PM)Only the most recent of2 resultswithin the time period is included.Prepare RBC, 1 Units (05/19/2017 10:10 AM) Component Value Ref Range Product name Red Blood Cells -1, Leukored Unit number [id number] Product code [id number] Dispense status Transfused Blood expiration date 20170608 Blood type code 5100 Blood type O POSITIVE Specimen Performing Laboratory [facility] DEPARTMENT OF PATHOLOGY AND [facility] MEDICINE [address] [place] [address] Type and screen (05/19/2017 10:10 AM)Only the most recent of2 resultswithin the time period is included. Component Value Ref Range ABO grouping O Rh type POS Antibody screen (gel) NEG Specimen Performing Laboratory Blood [facility] OF PATHOLOGY AND [address] [address] POC panel 4 (05/18/2017 1:40 PM)Only the most recent of2 resultswithin the time period is included. Component Value Ref Range POC sodium 139 135 - 148 meq/L POC potassium 4.4 3.5 - 5.0 meq/L POC hematocrit 24 (L) 37 - 47 % POC glucose 147 (H) 65 - 99 mg/dL POC hemoglobin 8.2 (L) 12.0 - 16.0 g/dL Specimen Performing Laboratory Blood [facility] DEPARTMENT OF PATHOLOGY AND [address] [address] ECG ED Preliminary Interpretation - NOT AN ORDER (05/18/2017 12:39 PM)Only the most recent of2 resultswithin the time period is included. Narrative Victorino Suh MD 05/18/2017 12:39 PM ECG ED Preliminary Interpretation - Not an Order Performed by: VICTORINO SUH Authorized by: VICTORINO SUH ECG reviewed by ED Physician in the absence of a field collector: yes Interpretation: Interpretation: normal Rate: ECG rate:77 ECG rate assessment: normal Rhythm: Rhythm: sinus rhythm Ectopy: Ectopy: none QRS: QRS axis:Normal QRS intervals:Normal Conduction: Conduction: normal ST segments: ST segments:Normal T waves: T waves: normal Other findings: Other findings: prolonged qTc interval XR Kub Kidney Ureter Bladder (05/17/2017 7:42 PM) Specimen Performing Laboratory [facility] [address] [place] [address] Narrative XR KUB KIDNEY URETER BLADDER CLINICAL INDICATION:PD cath problem COMPARISON:01/19/2017 IMPRESSION: A left-sided peritoneal dialysis catheter is present as on prior exam, the tip coiled in the pelvis. Bowel gas pattern is unremarkable. There are no radiopaque calculi. Moderate atherosclerotic vascular calcifications are present. Bones are intact and unchanged. [facility]-[id number] Procedure Note Interface, Radiology Results Incoming - 05/17/2017 7:48 PM [employer]SEM[employer]ER XR KUB KIDNEY URETER BLADDER CLINICAL INDICATION: PD cath problem COMPARISON: 01/19/2017 IMPRESSION: A left-sided peritoneal dialysis catheter is present as on prior exam, the tip coiled in the pelvis. Bowel gas pattern is unremarkable. There are no radiopaque calculi. Moderate atherosclerotic vascular calcifications are present. Bones are intact and unchanged. [facility]-[id number] Comprehensive metabolic panel (05/17/2017 2:44 PM)Only the [...] 1.2 mg/dL Specimen Performing Laboratory Plasma specimen [facility] DEPARTMENT OF PATHOLOGY AND GENOMIC MEDICINE [id number] [place] [address] ECG 12 lead (05/17/2017 12:29 PM)Only the most recent of4 resultswithin the time period is included. Component Value Ref Range Ventricular rate 77 Atrial rate 77 IL interval 140 QRSD interval 76 QT interval 432 QTC interval 488 P axis 1 63 QRS axis 1 86 T wave axis 20 EKG impression Normal sinus rhythm-Low voltage QRS-Prolonged QT-Abnormal ECG-In automated comparison with ECG of 30-JAN-2017 20:44,-No significant change was found- Specimen Performing Laboratory [facility] [address] [place] [address] POC glycosylated hemoglobin (Hb A1C) (04/10/2017 1:24 [...] 1.32 mmol/L Specimen Performing Laboratory Plasma specimen [facility] DEPARTMENT OF PATHOLOGY AND GENOMIC MEDICINE [address] [place] [address] Vitamin D 25 hydroxy level (01/30/2017 5:44 [...] for alternative methods. Specimen Performing Laboratory Blood [facility] [place] [address] Narrative CMP ADDED BY DR. NAZARIO01/30/201718:21 . Thyroid stimulating hormone (01/30/2017 5:44 PM) Component Value Ref Range TSH 2.08 0.27 - 4.20 uIU/mL Specimen Performing Laboratory Plasma specimen [facility] [place] [address] CMP ADD[address] BY DR[address] OSORIO18:21 . T4, free (01/30/2017 5:44 PM) Component Value Ref Range T4, free 1.7 0.9 - 1.7 ng/dL Specimen Performing Laboratory Plasma specimen [facility] [place] [address] CMP ADD[address] BY DR[address] OSORIO18:21 . Parathyroid hormone (01/30/2017 5:44 PM) Component Value Ref Range PTH 243 (H) 15 - 65 pg/mL Specimen Performing Laboratory Blood [facility] [place] [address] N[address]ative CMP ADDED BY DR[address] OSORIO18:21 . Lactic acid level (01/30/2017 5:44 PM) Component Value Ref Range Lactic acid 0.8 0.5 - 2.2 mmol/L Specimen Performing Laboratory Plasma specimen [facility] [place] [address] CENTRAL LINE (01/24/2017 1:02 PM) Narrative Dangelo Matos MD 01/20/20172:42 PM Central Line Insertion Performed by: DANGELO MATOS Authorized by: MESFIN HAMILTON Consent: Consent obtained:Written Consent given by:Patient Risks discussed:Arterial puncture, bleeding, incorrect placement, infection and nerve damage Alternatives discussed:Delayed treatment, no treatment and observation [facility]lord protocol: Procedure explained and questions answered to [...] 8:21 AM) Specimen Performing Laboratory [facility] [address] [place] [address] Narrative PROCEDURE:NM LUNG VENTILATION PERFUSION INDICATION:Chest pain. [...] infiltrate. IMPRESSION: 1.Very low probability for PE. [facility]-[id number] Procedure Note Interface, Radiology Results Incoming - [...] IMPRESSION: 1. Very low probability for PE. [facility]-[id number] Troponin (01/20/2017 4:15 AM)Only the most recent [...] myocardial injury. Specimen Performing Laboratory Plasma specimen [facility] DEPARTMENT OF PATHOLOGY AND GENOMIC MEDICINE [address] [place] [address] CT Head Wo Contrast (01/20/2017 2:30 AM) Specimen Performing Laboratory [facility] [address] [place] [address] Narrative EXAMINATION: CT HEAD WO CONTRAST CLINICAL [...] Mild mucosal thickening of right maxillary sinus. [facility]-[id number] Procedure Note [facility], Radiology Results Incoming - 01/20/2017 2:46 AM [...] Mild mucosal thickening of right maxillary sinus. [facility]-[id number] D-dimer (01/19/2017 11:51 PM) Component Value Ref [...] sepsis, and malignancies. Specimen Performing Laboratory Blood [facility] DEPARTMENT OF PATHOLOGY AND GENOMIC MEDICINE [address] [place] [address] XR Abdomen Acute Inc Chest (01/19/2017 8:36 PM) Specimen Performing Laboratory [facility] [address] [place] [address] Narrative EXAM: XR ABDOMEN ACUTE INC CHEST [...] changes are noted. Vascular calcifications are noted. [facility]-[id number] Procedure Note Interface, Radiology Results Incoming - [...] changes are noted. Vascular calcifications are noted. [facility]-[id number] B natriuretic peptide (01/19/2017 7:55 PM) Component Value Ref Range BNP 717 (H) 0 - 100 pg/mL Specimen Performing Laboratory [facility] DEPARTMENT OF PATHOLOGY AND GENOMIC MEDICINE [address] [place] [address] CBC hemogram (11/24/2016 8:05 AM) Component Value [...] 0.00 /100 WBC Specimen Performing Laboratory Blood [facility] DEPARTMENT OF PATHOLOGY AND GENOMIC MEDICINE [address] [place] [address] after 10/21/2016 Insurance Payer Benefit Plan / Group Subscriber ID Type Phone Address MEDICARE MEDICARE PART A AND B xxxxxxxxxx Medicare [place], [place] MEDICAID MEDICAID xxxxxxxxx Medicaid
--- OUTSIDE RECORDS SUMMARY | 2017-10-22 23:07 | XMS REPORT ---
:1960 [facility] [address] [place] [address] Care Team Providers Name Role Phone FANY [...] (BEAKER) (test 110 mg/dL 70-110 TESTED AT [address] ctjf=2230) [facility] [id number] POCT-GLUCOSE [id number] 14:12:00 Test Item Value Reference Range Comments POC-GLUCOSE METER (BEAKER) 83 mg/dL 70-110 TESTED AT [address] (test mdpf=9900) [place] [id number] BASIC METABOLIC [id number] 13:37:00 Test Item Value Reference Range Comments SODIUM (BEAKER) (test 140 meq/L 136-145 txim=350) POTASSIUM (BEAKER) (test 3.8 meq/L 3.5-5.1 wuiv=153) CHLORIDE (BEAKER) (test 103 meq/L 98-107 xkqa=349) CO2 (BEAKER) (test 25 meq/L 22-29 bqdp=818) BLOOD UREA NITROGEN 47 mg/dL 7-21 (BEAKER) (test uoic=591) CREATININE (BEAKER) (test 8.11 mg/dL 0.57-1.25 acqd=609) GLUCOSE RANDOM (BEAKER) 88 mg/dL 70-105 (test zbyy=903) CALCIUM (BEAKER) (test 7.3 mg/dL 8.4-10.2 erkq=420) EGFR (BEAKER) (test 5 mL/min/1.73 sq m ESTIMATED GFR IS NOT ptzs=8898) ACCURATE CREATININE CLEARANCE IN PREDICTING GLOMERULAR FILTRATION RATE. ESTIMATED GFR IS NOT APPLICABLE FOR DIALYSIS PATIENTS. [id number] 13:24:00 Test Item Value Reference Range Comments PROTIME (BEAKER) (test fnyp=640) 14.3 seconds 11.7-14.7 INR (BEAKER) (test rntt=529) 1.1 <=5.9 PARTIAL THROMBOPLASTIN TIME (BEAKER) (test 33.0 seconds 22.5-36.0 kxdt=476) RECOMMENDED COUMADIN/WARFARIN INR THERAPY RANGESSTANDARD DOSE: 2.0 - 3.0 Includes: PROPHYLAXIS forvenous thrombosis, systemic embolization; TREATMENT for venous thrombosis and/or pulmonary embolus.HIGH RISK: Target INR is 2.5-3.5 for patients with mechanical heart valves.CBC (HEMOGRAM ONLY)2017-03-20 13:09:00 Test Item Value Reference Range Comments WHITE BLOOD CELL COUNT (BEAKER) (test ikkf=818) 13.6 K/ L 3.5-10.5 RED BLOOD CELL COUNT (BEAKER) (test orut=157) 3.90 M/ L 3.93-5.22 HEMOGLOBIN (BEAKER) (test kqmb=619) 11.0 GM/DL 11.2-15.7 HEMATOCRIT (BEAKER) (test jhya=550) 35.2 % 34.1-44.9 MEAN CORPUSCULAR VOLUME (BEAKER) (test gjtg=301) 90.3 fL 79.4-94.8 MEAN CORPUSCULAR HEMOGLOBIN (BEAKER) (test 28.2 pg 25.6-32.2 fqqi=770) MEAN CORPUSCULAR HEMOGLOBIN CONC (BEAKER) (test 31.3 GM/DL 32.2-35.5 nnjw=149) RED CELL DISTRIBUTION WIDTH (BEAKER) (test 13.6 % 11.7-14.4 vsbi=583) PLATELET COUNT (BEAKER) (test fuvf=298) 321 K/CU MM 150-450 MEAN PLATELET VOLUME (BEAKER) (test dvsh=436) 11.1 fL 9.4-12.3 NUCLEATED RED BLOOD CELLS (BEAKER) (test 0 /100 WBC 0-0 qhsx=452) OCCULT BLOOD, [id number] 16:13:00 Test Item Value Reference Range Comments FECAL OCCULT BLOOD (BEAKER) (test lyxk=984) Negative Negative OCCULT BLOOD, [id number] 16:13:00 Test Item Value Reference Range Comments FECAL OCCULT BLOOD (BEAKER) (test zdfm=639) Positive Negative AB SPECIFICITY CLASS [id number] 11:48:00 Test Item Value Reference Range Comments DATE OF SERUM (BEAKER) (test rgvi=2236) [id number] SERUM # (BEAKER) (test aozi=5932) [id number] AB SPECIFICITY CLASS II (BEAKER) (test See Scanned Report kwbt=8798) AB SPECIFICITY CLASS [id number] 11:48:00 Test Item Value Reference Range Comments DATE OF SERUM (BEAKER) (test bmah=3300) [id number] SERUM # (BEAKER) (test fumg=5848) [id number] AB SPECIFICITY CLASS I (BEAKER) (test hzwi=5118) HLA [id number] 13:00:00 Test Item Value Reference Range Comments HLA RESULT (BEAKER) (test dteq=3225) See Scanned Report HLA-A AG1 (BEAKER) (test olij=2207) HLA-A AG2 (BEAKER) (test nxqf=3396) HLA-B AG1 (BEAKER) (test tziq=0171) HLA-B AG2 (BEAKER) (test uskg=3312) HLA-C AG1 (BEAKER) (test oijf=4679) HLA-C AG2 (BEAKER) (test pqti=5102) HLA-DR AG1 (BEAKER) (test ymzh=5169) HLA-DR AG2 (BEAKER) (test lhme=6198) HLA-DQ AG1 (BEAKER) (test eddo=1335) HLA-DQ AG2 (BEAKER) (test vivf=7570) HLA-DRW (BEAKER) (test rofw=0625) URINE [id number] 13:11:00 Test Item Value Reference Range Comments CULTURE (BEAKER) (test giyb=8952) >100,000 col/mL skin nino CYTOMEGALOVIRUS ANTIBODY, [id number] 12:04:00 Test Item Value Reference Range Comments CYTOMEGALOVIRUS IGG ANTIBODY (BEAKER) (test Positive ftku=384) CYTOMEGALOVIRUS ANTIBODY, [id number] 12:04:00 Test Item Value Reference Range Comments CYTOMEGALOVIRUS IGM ANTIBODY (BEAKER) (test Negative jhfl=166) EBV-VCA ANTIBODY, [id number] 12:04:00 Test Item Value Reference Range Comments KELLY-CARLOS VCA IGG (BEAKER) (test npmp=088) Positive EBV-VCA ANTIBODY, [id number] 12:04:00 Test Item Value Reference Range Comments KELLY-CARLOS VCA IGM (BEAKER) (test mrgn=414) Negative VARICELLA ZOSTER ANTIBODY, [id number] 11:20:00 Test Item Value Reference Range Comments VARICELLA ZOSTER IGG (AL) (BEAKER) (test wouq=7722) 1.6 Al VARICELLA ZOSTER RESULT INTERPRETATIONS: <=0.8 Al Nonreactive: Presumed non-immune to VZV 0.9-1.0 Al Equivocal >=1.1 Al Reactive: Presumed immune to [id number] 09:05:00 Test Item Value Reference Range Comments RPR SCREEN (BEAKER) (test mfsq=373) Nonreactive Nonreactive HEPATITIS B SURFACE [id number] 15:05:00 Test Item Value Reference Range Comments HEPATITIS B SURFACE ANTIBODY (BEAKER) (test < mIU/mL <8.0 nvss=995) HEPATITIS B SURFACE [id number] 15:04:00 Test Item Value Reference Range Comments HEPATITIS B SURFACE ANTIGEN (2) (BEAKER) (test Nonreactive Nonreactive qgcj=7849) HEPATITIS B CORE ANTIBODY, [id number] 15:04:00 Test Item Value Reference Range Comments HEPATITIS B CORE IGM ANTIBODY (BEAKER) (test Nonreactive Nonreactive clud=173) HEPATITIS C [id number] 15:04:00 Test Item Value Reference Range Comments HEPATITIS C ANTIBODY (BEAKER) (test kfcx=046) Nonreactive Nonreactive HIV-1 ANTIGEN WITH HIV-1/2 [id number] 15:04:00 Test Item Value Reference Range Comments HIV-1 ANTIGEN WITH HIV 1\T\2 ANTIBODY (2) Nonreactive Nonreactive (BEAKER) (test bfqq=9099) PTH, [id number] 14:34:00 Test Item Value Reference Range Comments PARATHYROID HORMONE INTACT (BEAKER) (test 424.6 pg/mL 8.5-72.5 hpem=511) Effective 04/15/2014: Reference Range ChangeNew: 8.5-72.5 Previous: 15.0- 90.0HEMOGLOBIN [id number] 14:13:00 Test Item Value Reference Range Comments HEMOGLOBIN A1C (BEAKER) (test tuqr=260) 8.0 % 4.3-6.1 URINALYSIS W/ [id number] 14:08:00 Test Item Value Reference Range Comments COLOR (BEAKER) (test vspc=262) Light Yellow CLARITY (BEAKER) (test rqap=562) Hazy SPECIFIC GRAVITY UA (BEAKER) (test ndlx=807) 1.010 1.001-1.035 PH UA (BEAKER) (test igvb=833) 8.0 5.0-8.0 PROTEIN UA (BEAKER) (test xzwt=521) >600 mg/dL Negative GLUCOSE UA (BEAKER) (test ujeu=158) 500 mg/dL Negative KETONES UA (BEAKER) (test fxcd=496) Negative Negative BILIRUBIN UA (BEAKER) (test uscw=620) Negative Negative BLOOD UA (BEAKER) (test cixq=645) Negative Negative NITRITE UA (BEAKER) (test bbhg=433) Negative Negative LEUKOCYTE ESTERASE UA (BEAKER) (test nvyh=782) Negative Negative UROBILINOGEN UA (BEAKER) (test byht=611) 0.2 mg/dL 0.2-1.0 RBC UA (BEAKER) (test squc=601) < /HPF WBC UA (BEAKER) (test uvtm=404) 4 /HPF BACTERIA (BEAKER) (test pvjm=090) Rare SQUAMOUS EPITHELIAL (BEAKER) (test ujfg=360) 9 /HPF CASTS (BEAKER) (test pvad=6231) 5 /LPF SOURCE(BEAKER) (test ngja=5257) COMPREHENSIVE METABOLIC [id number] 13:28:00 Test Item Value Reference Range Comments TOTAL PROTEIN (BEAKER) 7.3 gm/dL 6.0-8.3 (test smvg=364) ALBUMIN (BEAKER) (test 3.6 g/dL 3.5-5.0 jowy=0651) ALKALINE PHOSPHATASE 96 U/L 40-150 (BEAKER) (test dhsy=505) BILIRUBIN TOTAL (BEAKER) 0.6 mg/dL 0.2-1.2 (test hpld=991) SODIUM (BEAKER) (test 136 meq/L 136-145 nvsl=146) POTASSIUM (BEAKER) (test 4.1 meq/L 3.5-5.1 dlyj=905) CHLORIDE (BEAKER) (test 100 meq/L 98-107 wbco=374) CO2 (BEAKER) (test 24 meq/L 22-29 xtko=841) BLOOD UREA NITROGEN 31 mg/dL 7-21 (BEAKER) (test smpq=323) CREATININE (BEAKER) (test 5.33 mg/dL 0.57-1.25 djdb=474) GLUCOSE RANDOM (BEAKER) 300 mg/dL 70-105 (test kbbu=526) CALCIUM (BEAKER) (test 8.6 mg/dL 8.4-10.2 dyle=219) AST (SGOT) (BEAKER) (test 14 U/L 5-34 mtbj=093) ALT (SGPT) (BEAKER) (test 9 U/L 6-55 xdww=313) EGFR (BEAKER) (test 8 mL/min/1.73 sq m ESTIMATED GFR IS NOT zuna=4565) ACCURATE CREATININE CLEARANCE IN PREDICTING GLOMERULAR FILTRATION RATE. ESTIMATED GFR IS NOT APPLICABLE FOR DIALYSIS PATIENTS. URIC [id number] 13:06:00 Test Item Value Reference Range Comments URIC ACID (BEAKER) (test lajj=855) 4.3 mg/dL 2.6-7.2 [id number] 13:06:00 Test Item Value Reference Range Comments PHOSPHORUS (BEAKER) (test lvsg=552) 5.6 mg/dL 2.3-4.7 LIPID [id number] 13:06:00 Test Item Value Reference Range Comments TRIGLYCERIDES (BEAKER) (test pfcz=444) 121 mg/dL CHOLESTEROL (BEAKER) (test zayy=374) 138 mg/dL HDL CHOLESTEROL (BEAKER) (test oqpo=995) 55 mg/dL LDL CHOLESTEROL CALCULATED (BEAKER) (test 59 mg/dL gekz=122) Triglyceride Reference Range: Low Risk <150 Borderline [...] Range Comments GAMMA GLUTAMYL TRANSFERASE (BEAKER) (test csqp=317) 16 U/L 9-64 LACTATE DEHYDROGENASE (LDH)2016-07-26 13:06:00 Test Item Value Reference Range Comments LACTATE DEHYDROGENASE (BEAKER) (test phuf=786) 364 U/L 125-220 CBC W/PLT COUNT & AUTO [id number] 12:47:00 Test Item Value Reference Range Comments WHITE BLOOD CELL COUNT (BEAKER) (test lxnt=523) 8.5 K/ L 4.0-10.0 RED BLOOD CELL COUNT (BEAKER) (test izmb=766) 4.74 M/ L 4.00-5.00 HEMOGLOBIN (BEAKER) (test mnup=440) 13.3 GM/DL 12.0-15.0 HEMATOCRIT (BEAKER) (test gehi=381) 40.7 % 36.0-45.0 MEAN CORPUSCULAR VOLUME (BEAKER) (test npdd=362) 85.8 fL 82.0-99.0 MEAN CORPUSCULAR HEMOGLOBIN (BEAKER) (test 28.0 pg 27.0-33.0 rtlr=882) MEAN CORPUSCULAR HEMOGLOBIN CONC (BEAKER) (test 32.6 GM/DL 32.0-36.0 wran=977) RED CELL DISTRIBUTION WIDTH (BEAKER) (test 16.4 % 10.3-14.2 rjwk=141) PLATELET COUNT (BEAKER) (test biid=711) 311 K/CU MM 150-430 MEAN PLATELET VOLUME (BEAKER) (test nowa=683) 8.8 fL 6.5-10.5 NUCLEATED RED BLOOD CELLS (BEAKER) (test 0 /100 WBC 0-0 rush=839) NEUTROPHILS RELATIVE PERCENT (BEAKER) (test 74 % zovu=664) LYMPHOCYTES RELATIVE PERCENT (BEAKER) (test 19 % sdhx=829) MONOCYTES RELATIVE PERCENT (BEAKER) (test 6 % dwpp=322) EOSINOPHILS RELATIVE PERCENT (BEAKER) (test 2 % qxws=862) BASOPHILS RELATIVE PERCENT (BEAKER) (test 0 % fuvr=683) NEUTROPHILS ABSOLUTE COUNT (BEAKER) (test 6.30 K/ L 1.80-8.00 gjbc=679) LYMPHOCYTES ABSOLUTE COUNT (BEAKER) (test 1.58 K/ L 1.48-4.50 eedd=326) MONOCYTES ABSOLUTE COUNT (BEAKER) (test 0.49 K/ L 0.00-1.30 hxrk=242) EOSINOPHILS ABSOLUTE COUNT (BEAKER) (test 0.14 K/ L 0.00-0.50 qlpy=825) BASOPHILS ABSOLUTE COUNT (BEAKER) (test 0.02 K/ L 0.00-0.20 ensi=399) 0.00PT/[id number] 12:39:00 Test Item Value Reference Range Comments PROTIME (BEAKER) (test uamf=446) 13.1 seconds 11.7-14.7 INR (BEAKER) (test fxwa=123) 1.0 <=5.9 PARTIAL THROMBOPLASTIN TIME (BEAKER) (test 31.8 seconds 22.5-36.0 vesh=232) RECOMMENDED COUMADIN/WARFARIN INR THERAPY RANGESSTANDARD DOSE: 2.0 - 3.0 Includes: PROPHYLAXIS forvenous thrombosis, systemic embolization; TREATMENT for venous thrombosis and/or pulmonary embolus.HIGH RISK: Target INR is 2.5-3.5 for patients with mechanical heart valves.
--- OUTSIDE RECORDS SUMMARY | 2017-10-22 23:07 | XMS REPORT ---
[...] Problem Depression with anxiety F41.8 Active Problem [facility] current use of insulin Z79.4 Active Problem [...] ND 0 Active not defined Tylenol with [facility] 73498414592 300-30 MG Active 1 tablet as Codeine #3 Orally TWICE needed DAILY PRN PAIN Aspirin 81 ND 68037273725 81 MG Orally Active 1 tablet Once a day Vitamin D ND 55544927752 46343 UNIT Active 1 capsule (Ergocalciferol) Orally Sevelamer [facility] [address]-69 Active not defined Carbonate Aranesp (Albumin [facility] [address]-78 Active not defined Free) Hydrocortisone ND 10549451458 1 % Externally Active 1 application Twice a day to affected area Lipitor [facility] 86603200353 40 MG Orally Active 1 tablet Once a day Calcium Carbonate [facility] 61237798187 750 MG Orally Active 1 tablet Antacid Once a day Ergocalciferol [facility] [address]-09 Active not defined Tessalon Perles [facility] [address]-34 Active not defined Bisacodyl [facility] [address]-11 Active not defined Darbepoetin Marito [facility] [address]-24 Active not defined cyclobenzaprine ND 0 Active not defined Senna [facility] 02560486204 8.6 MG Orally Active 2 tablets at Once OR TWICE bedtime as DAILY PRN needed Tresiba FlexTouch [facility] 67422519978 200 UNIT/ML Active 12-16 UNITS Subcutaneous QHS Carvedilol [facility] 46398480052 25 MG Orally Active not defined TWICE DAILY Furosemide [facility] 87420606110 80 MG Orally Active 1 tablet Once a day Plavix [facility] 05600403096 75 MG Orally Active 1 tablet Once a day Calcitriol [facility] [address]-73 Active not defined Lisinopril [facility] [address]-58 Active not defined MiraLax [facility] [address]-94 Active not defined Amlodipine ND 0 Active not defined Besylate Tylenol Extra [facility] [address]-77 Active not defined Strength Renax ND 0 Active not defined Results No Known Results Summary Purpose eClinicalWorks Submission
--- OUTSIDE RECORDS SUMMARY | 2017-10-22 23:07 | XMS REPORT ---
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 Problem [...] Status Dosage System Date Date Aspirin 81 [facility] 98067360364 81 MG Orally Active 1 tablet Once a day Calcium Carbonate [facility] 21605062746 750 MG Orally Active 1 tablet Antacid Once a day Tylenol with [facility] 32269592338 300-30 MG Active 1 tablet as Codeine #3 Orally TWICE needed DAILY PRN PAIN Hydrocortisone ND 30702262789 1 % Externally Active 1 application Twice a day to affected area Augmentin [facility] 71144198620 875-125 MG August Active 1 tablet Orally BID 2017 Vitamin D ND 33615885923 04208 UNIT Active 1 capsule (Ergocalciferol) Orally Furosemide ND 87408082185 40 MG Orally Active 1 tablet Once a day Senna ND 24273756115 8.6 MG Orally Active 2 tablets at Once OR TWICE bedtime as DAILY PRN needed Lipitor [facility] 61744454741 40 MG Orally Active 1 tablet Once a day Tresiba FlexTouch [facility] 28143180009 200 UNIT/ML Active 12-16 UNITS Subcutaneous QHS Carvedilol [facility] 76672085917 25 MG Orally Active not defined TWICE DAILY Plavix [facility] 73297160299 75 MG Orally Active 1 tablet Once a day Results No Known Results Summary Purpose eClinicalWorks Submission
--- OUTSIDE RECORDS SUMMARY | 2017-10-22 23:07 | XMS REPORT ---
[...] Problem Depression with anxiety F41.8 Active Problem care home current use of insulin Z79.4 Active Problem Subclinical hypothyroidism E03.9 Active Problem Migraine without aura and without G43.009 Active status migrainosus, not intractable Problem GERD without esophagitis K21.9 Active Problem Dependence on renal dialysis Z99.2 Active Medications No Known Medications Results No Known Results Summary Purpose eClinicalmygall Submission
--- OUTSIDE RECORDS SUMMARY | 2017-10-22 23:07 | XMS REPORT ---
[...] End Status Dosage System Date Date Plavix [facility] 62169245725 75 MG Orally Active 1 tablet Once a day Furosemide ND 36454752710 40 MG Orally Active 1 tablet Once a day Hydrocortisone ND 03101662913 1 % Externally Active 1 application Twice a day to affected area Senna [facility] 37026397426 8.6 MG Orally Active 2 tablets at Once OR TWICE bedtime as DAILY PRN needed Vitamin D ND 30019758967 98355 UNIT Active 1 capsule (Ergocalciferol) Orally Calcium Carbonate [facility] 96114726668 750 MG Orally Active 1 tablet Antacid Once a day Lipitor ND 17702630124 40 MG Orally Active 1 tablet Once a day Tresiba FlexTouch [facility] 27685191324 200 UNIT/ML Active 12-16 UNITS Subcutaneous QHS Tylenol with [facility] 34276267997 300-30 MG Active 1 tablet as Codeine #3 Orally TWICE needed DAILY PRN PAIN Carvedilol [facility] 13947395543 25 MG Orally Active not defined TWICE DAILY Aspirin 81 [facility] 62046060193 81 MG Orally Active 1 tablet Once a day Results No Known Results Summary Purpose eClinicalWorks Submission
--- OUTSIDE RECORDS SUMMARY | 2017-10-22 23:07 | XMS REPORT ---
[...] Problem Depression with anxiety F41.8 Active Problem assisted current use of insulin Z79.4 Active Problem Subclinical hypothyroidism E03.9 Active Problem Migraine without aura and without G43.009 Active status migrainosus, not intractable Problem GERD without esophagitis K21.9 Active Problem Dependence on renal dialysis Z99.2 Active Medications No Known Medications Results No Known Results Summary Purpose eClinicalIForem Submission
--- OUTSIDE RECORDS SUMMARY | 2017-10-22 23:07 | XMS REPORT ---
:1960 Author Organization eClinicalWorks Care Team Providers Name Role Phone Ruel Mark Provider Role Unavailable Allergies, Adverse Reactions, Alerts [...] Problem Depression with anxiety F41.8 Active Problem detention current use of insulin Z79.4 Active Problem Subclinical hypothyroidism E03.9 Active Problem Migraine without aura and without G43.009 Active status migrainosus, not intractable Problem GERD without esophagitis K21.9 Active Assessment Influenza B J10.1 Active Problem Dependence on renal dialysis Z99.2 Active Medications Medication Code Code Instructions Start End Status Dosage System Date Date Hydrocortisone [facility] 89345069489 1 % Externally Active 1 application Twice a day to affected area Darbepoetin Marito [facility] [address]-38 Active not defined MiraLax [facility] 88951855046 Active not defined Sevelamer [facility] [address]-43 Active not defined Carbonate Tylenol with [facility] 35407488496 300-30 MG Active 1 tablet as Codeine #3 Orally TWICE needed DAILY PRN PAIN Ergocalciferol [facility] [address]-07 Active not defined Lisinopril [facility] [address]-49 Active not defined Aspirin 81 [facility] 67771315820 81 MG Orally Active 1 tablet Once a day Aranesp (Albumin [facility] [address]-41 Active not defined Free) Tresiba FlexTouch [facility] 01329249386 200 UNIT/ML Active 12-16 UNITS Subcutaneous QHS Gentamicin NDC 0 Active not defined Lipitor [facility] 18628728843 40 MG Orally Active 1 tablet Once a day Amlodipine ND 0 Active not defined Besylate Tessalon Perles [facility] [address]-32 Active not defined Carvedilol [facility] 48177168563 25 MG Orally Active not defined TWICE DAILY Calcium Carbonate [facility] 64541714076 750 MG Orally Active 1 tablet Antacid Once a day Calcitriol [facility] [address]-68 Active not defined cyclobenzaprine [facility] 0 Active not defined Renax [facility] 0 Active not defined Tamiflu [facility] 21604880589 75 MG Orally October 18, Active 1 capsule Twice a day 2017 Vitamin D [facility] 04981042950 09412 UNIT Active 1 capsule (Ergocalciferol) Orally Bisacodyl [facility] [address]-71 Active not defined Senna [facility] 31585101072 8.6 MG Orally Active 2 tablets at Once OR TWICE bedtime as DAILY PRN needed Furosemide [facility] 50101763094 80 MG Orally Active 1 tablet Once a day Plavix [facility] 71055429548 75 MG Orally Active 1 tablet Once a day Tylenol Extra [facility] [address]-65 Active not defined Strength Results Name Result Date Reference Range Unit Abnormality Flag FLU TEST ----A Negative [id number] ----B Positive [id number] Summary Purpose eClinicalWorks Submission
--- OUTSIDE RECORDS SUMMARY | 2017-10-22 23:07 | XMS REPORT ---
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
[2017-10-23 00:46] LABS: Absolute Lymphocytes (CBC) 1.8 K/uL (0.7-4.9); Absolute Monocytes 0.5 K/uL (0.1-1.3); Absolute Neutrophil 4.8 K/uL (1.8-8.0); Basophils % 0.5 % (0-1.3); Eosinophils % 2.3 % (0-4.4); Hematocrit 26.9 % (36.0-45.0); Lymphocytes % 24.8 % (15.3-44.8); MCH 29.4 pg (27.0-35.0); MCV 89.4 fL (80-100); MPV 9.9 fL (7.6-11.3); Monocytes % 6.6 % (3.3-12.3); RBC Red Blood Cell Count 3.01 M/uL (3.86-4.86)
[2017-10-23 00:47] LABS: Urine Blood 1+ (NEG); Urine Glucose TRACE (NEG); Urine Protein 3+ (NEG); Urine Specific Gravity 1.015 (1.005-1.030); Urine pH 6.5 (5.0-7.0)
[2017-10-23 01:02] LABS: Protime INR 0.93
[2017-10-23 01:37] LABS: Albumin 3.1 g/dL (3.2-5.5); Bilirubin Direct 0.1 mg/dL (0-0.2); Bilirubin Total 0.7 mg/dL (0.3-1.2); Magnesium 2.3 mg/dL (1.8-2.5); Protein, Total 6.6 g/dL (6.0-8.3)
--- NOTE | 2017-10-23 04:34 | EDPHYS ---
Physician Documentation [facility] Name: Elly Marshall Age: 57 yrs Sex: Female : 1960 Arrival Date: 10/22/2017 Time: 23:05 Bed 5 Private MD: ED Physician David Isaacs HPI: 10/23 06:22 This 57 yrs old Female presents to ER via Wheelchair with complaints of wa Dizziness, High Blood Sugar, High Blood Pressure, Breathing Difficulty. 06:22 The patient presents with dizziness, also c/o elevated blood pressure, SOB and chest wa pain. h/o peritoneal dialysis. . Onset: The symptoms/episode began/occurred today. Context: occurred at home, occurred while the patient was getting ready to do her dialysis. Modifying factors: The symptoms are alleviated by nothing, the symptoms are aggravated by nothing. Associated signs and symptoms: Pertinent negatives: abdominal pain, nausea, vomiting. Severity of symptoms: At their worst the symptoms were moderate in the emergency department the symptoms are unchanged. Patient's baseline: Neuro: alert and fully oriented, Motor: no deficits, Ambulation: walks without assistance, Speech: normal. The patient has not experienced similar symptoms in the past. The patient has experienced similar episodes in the past, a few times. The patient has not recently seen a physician. Historical: - Allergies: 10/22 23:53 Lyrica; ea - Home Meds: 23:53 aspirin 81 mg Oral chew 1 tab once daily [Active]; carvedilol 25 mg Oral tab 1 tab 2 ea times per day [Active]; Crestor 20 mg Oral tab 1 tab once daily [Active]; diltiazem HCl 120 mg Oral cp24 1 cap once daily [Active]; furosemide 20 mg Oral tab 1 tab once daily [Active]; NOVALOG 70/30 [Active]; Prozac 20 mg Oral cap 1 cap 2 times per day [Active]; tramadol 50 mg Oral tab 1 tab twice a day [Active]; Plavix 75 mg Oral tab 1 tab once daily [Active]; - PMHx: 23:53 CHF; Diabetes - IDDM; Hypertension; kidney disease; ea - PSHx: 23:53 ; Appendectomy; peritoneal Dialysis catheter to right abdomen; ea - Immunization history:: Adult Immunizations up to date. - Social history:: Smoking status: Patient/guardian denies using tobacco. - Ebola Screening: : No symptoms or risks identified at this time. - Family history:: not pertinent. - Hospitalizations: : No recent hospitalization is reported. ROS: 10/23 06:32 Constitutional: Negative for fever, chills, and weight loss, Eyes: Negative for injury, wa pain, redness, and discharge, ENT: Negative for injury, pain, and discharge, Neck: Negative for injury, pain, and swelling, Abdomen/GI: Negative for abdominal pain, nausea, vomiting, diarrhea, and constipation, Back: Negative for injury and pain, MS/Extremity: Negative for injury and deformity, Skin: Negative for injury, rash, and discoloration. Cardiovascular: Positive for chest pain, Negative for edema, orthopnea, palpitations. Respiratory: Positive for shortness of breath, Negative for orthopnea, pleurisy, wheezing. Neuro: Positive for dizziness, Negative for altered mental status, headache, loss of consciousness. All other systems are negative. Exam: 06:36 Constitutional: This is a well developed, well nourished patient who is awake, alert, wa and in no acute distress. 06:36 Head/Face: Normocephalic, atraumatic. Eyes: Pupils equal round and reactive to light, extra-ocular motions intact. Lids and lashes normal. Conjunctiva and sclera are non-icteric and not injected. Cornea within normal limits. Periorbital areas with no swelling, redness, or edema. ENT: Nares patent. No nasal discharge, no septal abnormalities noted. Tympanic membranes are normal and external auditory canals are clear. Oropharynx with no redness, swelling, or masses, exudates, or evidence of obstruction, uvula midline. Mucous membranes moist. Neck: Trachea midline, no thyromegaly or masses palpated, and no cervical lymphadenopathy. Supple, full range of motion without nuchal rigidity, or vertebral point tenderness. No Meningismus. Abdomen/GI: Soft, non-tender, with normal bowel sounds. No distension or tympany. No guarding or rebound. No evidence of tenderness throughout. Back: No spinal tenderness. No costovertebral tenderness. Full range of motion. Skin: Warm, dry with normal turgor. Normal color with no rashes, no lesions, and no evidence of cellulitis. MS/ Extremity: Pulses equal, no cyanosis. Neurovascular intact. Full, normal range of motion. Neuro: Awake and alert, GCS 15, oriented to person, place, time, and situation. Cranial nerves II-XII grossly intact. Motor strength 5/5 in all extremities. Sensory grossly intact. Cerebellar exam normal. Normal gait. Psych: Awake, alert, with orientation to person, place and time. Behavior, mood, and affect are within normal limits. 06:36 Cardiovascular: Rate: normal, Rhythm: regular, Heart sounds: normal, Edema: is not appreciated. 06:36 Respiratory: the patient does not display signs of respiratory distress, Respirations: normal, Breath sounds: are clear throughout, Respiratory rate: nml 06:36 Abdomen/GI: Inspection: abdomen appears normal, Bowel sounds: normal, Palpation: abdomen is soft and non-tender, in all quadrants. Vital Signs: 10/22 23:56 BP 183 / 44; Pulse 74; Resp 20; Temp 98.7; Pulse Ox 100% on R/A; Weight 84.37 kg; ea Height 5 ft. 2 in. (157.48 cm); Pain 7/10; 10/23 00:15 BP 166 / 63; Pulse 70; Resp 20; Pulse Ox 97% on R/A; cb2 01:31 BP 182 / 67 LA Sitting (auto/reg); Pulse 70 RA; Resp 20 S; Pulse Ox 98% on R/A; cb2 02:30 BP 162 / 72; Pulse 70 LA; Resp 20 S; Pulse Ox 99% on R/A; cb2 03:30 BP 158 / 81; Pulse 68; Resp 20 S; Pulse Ox 99% on R/A; cb2 04:30 BP 153 / 72; Pulse 70; Resp 20; Pulse Ox 100% on R/A; cb2 05:15 BP 166 / 74; Pulse 66; Resp 20; Pulse Ox 98% ; cb2 06:01 BP 167 / 74 RA Sitting (auto/reg); Pulse 69 LA; Resp 20 S; Pulse Ox 98% on R/A; cb2 07:20 BP 175 / 77; Pulse 69; Resp 19; Pulse Ox 99% on R/A; sv 10/22 23:56 Body Mass Index 34.02 (84.37 kg, 157.48 cm) ea MDM: 10/22 23:21 Patient medically screened. wa 10/23 06:33 Differential diagnosis: cardiac arrhythmia, CVA, generalized weakness, hypovolemia. wa Data reviewed: vital signs, nurses notes, lab test result(s), EKG, radiologic studies. Test interpretation: by ED physician or midlevel provider: labs noted for elevated BUN/Cr. anemia. mild elevation in BUN. CXR nml.. Test interpretation: by ED physician or midlevel provider: EKG: HR 69. Inferior Q waves consisted with old [place]. Response to treatment: the patient's symptoms have markedly improved after treatment. Physician consultation: Bryant Armendariz MD. Admission orders: after a detailed discussion of the patient's condition and case, the admit orders are written by me. Special discussion: admitted for further evaluation. 10/22 23:55 Order name: Urine Microscopic Only or 10/22 23:55 Order name: Basic Metabolic Panel; Complete Time: 03:39 or 10/22 23:55 Order name: BNP; Complete Time: 03:39 or 10/22 23:55 Order name: CBC with Diff; Complete Time: 03:39 or 10/22 23:55 Order name: CPK; Complete Time: 03:39 or 10/22 23:55 Order name: Hepatic Function; Complete Time: 03:39 or 10/22 23:55 Order name: Magnesium; Complete Time: 03:39 or 10/22 23:55 Order name: Protime (+inr); Complete Time: 03:39 or 10/22 23:55 Order name: Troponin (emerg Dept Use Only); Complete Time: 03:38 or 10/23 00:43 Order name: Urine Dipstick--Ancillary (enter results); Complete Time: 03:38 [facility] 10/23 00:43 Order name: Urine --Ancillary (enter results); Complete Time: 03:38 [facility] 10/23 07:29 Order name: Glucose, Ancillary Testing [facility] 10/23 07:29 Order name: Glucose, Ancillary Testing [facility] 10/23 07:29 Order name: Glucose, Ancillary Testing [facility] 10/22 23:54 Order name: Accucheck Blood Glucose; Complete Time: 23:59 or 10/22 23:55 Order name: CT Head Brain wo Cont or 10/22 23:55 Order name: EKG; Complete Time: 23:55 or 10/22 23:55 Order name: Cardiac monitoring; Complete Time: 01:44 or 10/22 23:55 Order name: EKG - Nurse/Tech; Complete Time: 00:55 or 10/22 23:55 Order name: IV Saline Lock; Complete Time: 00:55 or 10/22 23:55 Order name: Labs collected and sent; Complete Time: 00:55 or 10/22 23:55 Order name: NPO; Complete Time: 00:55 or 10/22 23:55 Order name: O2 Per Protocol; Complete Time: 01:05 or 10/22 23:55 Order name: O2 Sat Monitoring; Complete Time: 01:05 or 10/22 23:55 Order name: Urine Dipstick-Ancillary (obtain specimen); Complete Time: 01: or 10/23 03:40 Order name: Chest Pa And Lat (2 Views) XRAY or Administered Medications: No medications were administered Point of Care Testing: Blood Glucose: 10/22 23:40 Blood Glucose: 125 mg/dL; 10/23 04:30 Blood Glucose: 117 mg/dL; 07:31 Blood Glucose: 125 mg/dL; sv Ranges: Critical Glucose Levels:Adult <50 mg/dl or >400 mg/dl <40 mg/dl or >180 mg/dl Disposition: 10/23/17 04:34 Hospitalization ordered by Bryant Armendariz for Observation. Preliminary diagnosis are dizziness, chest pain, shortness of breath. - Bed requested for Telemetry/MedSurg (observation). - Status is Observation. sv - Condition is Stable. - Problem is new. - Symptoms have improved. UTI on Admission? No Signatures: Dispatcher [employer] Jovita Samuels RN RN sv Webb, Martha, RN RN mw Antunez, Elena, RN RN ea Appiah, William, MD MD or Corrections: (The following items were deleted from the chart) 04:51 04:34 Hospitalization Ordered by Bryant Armendariz MD for Observation. Preliminary mw diagnosis is dizziness; chest pain; shortness of breath. Bed requested for Telemetry/MedSurg (observation). Status is Observation. Condition is Stable. Problem is new. Symptoms have improved. UTI on Admission? No. or 08:11 04:51 10/23/2017 04:34 Hospitalization Ordered by Bryant Armendariz MD for Observation. sv Preliminary diagnosis is dizziness; chest pain; shortness of breath. Bed requested for Telemetry/MedSurg (observation). Status is Observation. Condition is Stable. Problem is new. Symptoms have improved. UTI on Admission? No. mw
--- NOTE | 2017-10-23 04:34 | ER ---
Nurse's Notes [facility] Name: Elly Marshall Age: 57 yrs Sex: Female : 1960 Arrival Date: 10/22/2017 Time: 23:05 Bed 5 Private MD: Diagnosis: dizziness;chest pain;shortness of breath Presentation: 10/22 23:48 Presenting complaint: Patient states: Patient states she started feeling weak, ea dizziness, sweating, chest pain, shortness of breath and numbness in right hand that started around 2029. Transition of care: patient was not received from another setting of care. Onset of symptoms was October 22, 2017. Risk Assessment: Do you want to hurt yourself or someone else? Patient reports no desire to harm self or others. Initial Sepsis Screen: Does the patient meet any 2 criteria? No. Patient's initial sepsis screen is negative. Does the patient have a suspected source of infection? No. Patient's initial sepsis screen is negative. Care prior to arrival: None. 23:48 Method Of Arrival: Wheelchair ea 23:48 Acuity: RONAK 3 ea Triage Assessment: 23:54 General: Appears uncomfortable, Behavior is cooperative, Pt reports she does at home ea peritoneal dialysis. Pain: Complains of pain in chest Pain does not radiate. Pain currently is 6 out of 10 on a pain scale. Quality of pain is described as aching. EENT: No signs and/or symptoms were reported regarding the EENT system. Neuro: Level of Consciousness is awake, alert, obeys commands, Oriented to person, place, time, situation. Cardiovascular: Heart tones S1 S2 present Patient's skin is warm and dry. Respiratory: Reports shortness of breath cough that is persistent Airway is patent Respiratory effort is even, unlabored, Respiratory pattern is regular, symmetrical, Breath sounds are clear in right upper lobe and left upper lobe Onset: The symptoms/episode began/occurred today, the patient has mild shortness of breath. GI: Peritoneal dialysis catheter capped. Site is clean and dry. Bowel sounds present X 4 quads. : No signs and/or symptoms were reported regarding the genitourinary system. Derm: Skin is pink, warm \T\ dry. Musculoskeletal: No signs and/or symptoms reported regarding the musculoskeletal system. Historical: - Allergies: 23:53 Lyrica; ea - Home Meds: 23:53 aspirin 81 mg Oral chew 1 tab once daily [Active]; carvedilol 25 mg Oral tab 1 tab 2 ea times per day [Active]; Crestor 20 mg Oral tab 1 tab once daily [Active]; diltiazem HCl 120 mg Oral cp24 1 cap once daily [Active]; furosemide 20 mg Oral tab 1 tab once daily [Active]; NOVALOG 70/30 [Active]; Prozac 20 mg Oral cap 1 cap 2 times per day [Active]; tramadol 50 mg Oral tab 1 tab twice a day [Active]; Plavix 75 mg Oral tab 1 tab once daily [Active]; - PMHx: 23:53 CHF; Diabetes - IDDM; Hypertension; kidney disease; ea - PSHx: 23:53 ; Appendectomy; peritoneal Dialysis catheter to right abdomen; ea - Immunization history:: Adult Immunizations up to date. - Social history:: Smoking status: Patient/guardian denies using tobacco. - Ebola Screening: : No symptoms or risks identified at this time. - Family history:: not pertinent. - Hospitalizations: : No recent hospitalization is reported. Screenin:58 Abuse screen: Denies threats or abuse. Nutritional screening: No deficits noted. ea Tuberculosis screening: No symptoms or risk factors identified. Fall Risk None identified. Assessment: 10/23 00:00 Reassessment: Patient and/or family updated on plan of care and expected duration. Pain ea level reassessed. Patient is alert, oriented x 3, equal unlabored respirations, skin warm/dry/pink. 03:29 Reassessment: pt requesting to speak to physician, ERP notified but has not made it to ak1 the bedside. 04:30 Reassessment: Patient and/or family updated on plan of care and expected duration. Pain ea level reassessed. Patient is alert, oriented x 3, equal unlabored respirations, skin warm/dry/pink. 05:47 Reassessment: Patient and/or family updated on plan of care and expected duration. Pain ea level reassessed. Patient is alert, oriented x 3, equal unlabored respirations, skin warm/dry/pink. 07:20 Reassessment: Patient and/or family updated on plan of care and expected duration. Pain sv level reassessed. Patient is alert, oriented x 3, equal unlabored respirations, skin warm/dry/pink. Informed Dr Isaacs, no further orders received. Pt to see neurologist for further orders. Neuro: Reports dizziness. 07:30 Reassessment: Tori to call back for report. sv Vital Signs: 10/22 23:56 BP 183 / 44; Pulse 74; Resp 20; Temp 98.7; Pulse Ox 100% on R/A; Weight 84.37 kg; ea Height 5 ft. 2 in. (157.48 cm); Pain 7/10; 10/23 00:15 BP 166 / 63; Pulse 70; Resp 20; Pulse Ox 97% on R/A; cb2 01:31 BP 182 / 67 LA Sitting (auto/reg); Pulse 70 RA; Resp 20 S; Pulse Ox 98% on R/A; cb2 02:30 BP 162 / 72; Pulse 70 LA; Resp 20 S; Pulse Ox 99% on R/A; cb2 03:30 BP 158 / 81; Pulse 68; Resp 20 S; Pulse Ox 99% on R/A; cb2 04:30 BP 153 / 72; Pulse 70; Resp 20; Pulse Ox 100% on R/A; cb2 05:15 BP 166 / 74; Pulse 66; Resp 20; Pulse Ox 98% ; cb2 06:01 BP 167 / 74 RA Sitting (auto/reg); Pulse 69 LA; Resp 20 S; Pulse Ox 98% on R/A; cb2 07:20 BP 175 / 77; Pulse 69; Resp 19; Pulse Ox 99% on R/A; sv 10/22 23:56 Body Mass Index 34.02 (84.37 kg, 157.48 cm) ea ED Course: 10/22 23:05 Patient arrived in ED. al2 23:21 David Isaacs MD is Attending Physician. wa 23:38 Maryann Barillas, LADAN is Primary Nurse. ea 23:51 Triage completed. ea 23:58 Patient has correct armband on for positive identification. Bed in low position. Call ea light in reach. Side rails up X2. 23:58 Arm band placed on right wrist. ea 10/23 00:00 Inserted saline lock: 20 gauge in left antecubital area, using aseptic technique. Blood ea collected. 01:23 CT Head Brain wo Cont In Process Unspecified. EDMS 01:39 Notified ED physician of a critical lab result(s). Ca+ 6.7 and 13.00 creatine. ak1 03:49 X-ray completed. jw2 03:51 Chest Pa And Lat (2 Views) XRAY In Process Unspecified. EDWI 04:33 Bryant Armendariz MD is Hospitalizing Provider. ky 05:50 No provider procedures requiring assistance completed. Patient admitted, IV remains in ea place. Administered Medications: No medications were administered Point of Care Testing: Blood Glucose: 10/22 23:40 Blood Glucose: 125 mg/dL; ea 10/23 04:30 Blood Glucose: 117 mg/dL; ea 07:31 Blood Glucose: 125 mg/dL; sv Ranges: Outcome: 02:00 Instructed on the need for admit. ea 04:34 Decision to Hospitalize by Provider. 07:55 Admitted to Tele accompanied by tech, via stretcher, room 229, with chart, Report sv called to Tori PICKERING 07:55 Condition: stable 08:11 Patient left the ED. sv Signatures: Dispatcher [employer] EDJovita Styles RN RN Lesly Gomes RN RN ak1 Brooklynn Davenport jw2 Jatin Lopez Elena RN David Gillespie ea, MD MD wa Love, Jennifer gastelum Corrections: (The following items were deleted from the chart) 02:53 10/22 23:54 General: Appears uncomfortable, Behavior is cooperative, ea ea 10/23 02:53 10/22 23:54 GI: No signs and/or symptoms were reported involving the gastrointestinal ea system. ea
[2017-10-23] MEDS ORDERED: IBUPROFEN 200 MG TAB PO ONE (04:37)
[2017-10-23] MEDS ORDERED: IBUPROFEN 400 MG TAB ONE (04:37)
[2017-10-23] MEDS ORDERED: ACETAMINOPHEN 500 MG TAB ONE (04:37)
[2017-10-23] MEDS ORDERED: ACETAMINOPHEN 500 MG TAB PO PRN (05:39)
[2017-10-23] MEDS ORDERED: MORPHINE 2 MG/ML SYR IV PRN (05:39)
[2017-10-23] MEDS ORDERED: ONDANSETRON 4 MG/2 ML VIAL IV PRN (05:39)
[2017-10-23] MEDS ORDERED: Morphine 2 MG/2 ML SYR IV PRN (07:10)
[2017-10-23 08:32] VITALS: BMI 34.4
--- NOTE | 2017-10-23 08:42 | P.HP ---
Certification for Inpatient Patient admitted to: Observation With expected LOS: <2 Midnights Patient will require the following post-hospital care: None Practitioner: I am a practitioner with admitting privileges, knowledge of patient current condition, hospital course, and medical plan of care. Services: Services provided to patient in accordance with Admission requirements found in Title 42 Section 412.3 of the Code of Federal Regulations Patient History Date of Service: 10/23/17 Reason for admission: Dizziness History of Present Illness: Patient is a 57-year-old female with a history of end-stage renal disease who presents to the hospital with dizziness. She says she has been having vertigo for the last 12-24 hr. She is not able to really keep her balance when she is ambulating. She has also had some numbness on the right side of her hand. Patient is on peritoneal dialysis but is not having any abdominal tenderness and she does not feel any pain around her peritoneal dialysis catheter site. Patient came into the hospital for further evaluation. Patient is anemic and her calcium level is low as well. We will go ahead and do further imaging study of the brain to evaluate for a possible acute CVA in the cerebellar region which is resulting in her vertigo. She is not having any inner ear problems. No tenderness and no erythema on exam noted. Her blood pressure is also elevated slightly and will slowly bring this down. Allergies pregabalin [From Lyrica] Allergy (Verified 10/23/17 08:13) Unknown Home Medications: Aspirin Chewable [Aspirin Chewable*] 81 mg PO DAILY 03/19/15 Rosuvastatin [Crestor*] 20 mg PO DAILY 03/19/15 Carvedilol [Coreg*] 25 mg PO BID 05/07/15 Clopidogrel Bisulfate [Plavix*] 75 mg DAILY 04/06/16 Furosemide [Lasix*] 20 mg PO DAILY 04/06/16 Insulin 70/30 NPH/Reg Human [Novolin 70/30*] 25 units SQ BEDTIME 04/06/16 Amlodipine [Norvasc*] 5 mg PO DAILY #30 tab 05/10/16 Hydralazine [Apresoline*] 25 mg PO TID #90 tab 05/10/16 - Past Medical/Surgical History Has patient received pneumonia vaccine in the past: Yes Diabetic: Yes -: hypertension -: hyperlipdiemia -: TIA -: rheumatoid arthritis -: DM- IDDM -: angina -: -: appendectomy -: HD cath to RCW- HD M,W,F - Family History Mother Medical History: Diabetes Father Medical History: Diabetes - Social History Alcohol use: No CD- Drugs: No Caffeine use: No Review of Systems 10-point ROS is otherwise unremarkable Physical Examination - Vital Signs Temperature: 98.7 F Blood Pressure: 175/77 Pulse: 69 Respirations: 19 Pulse Ox (%): 98 - Physical Exam General: Alert, In no apparent distress, Oriented x3 HEENT: Atraumatic, PERRLA, Mucous membr. moist/pink, EOMI, Sclerae nonicteric Neck: Supple, 2+ carotid pulse no bruit, No LAD, Without JVD or thyroid abnormality Respiratory: Clear to auscultation bilaterally, Normal air movement Cardiovascular: Regular rate/rhythm, Normal S1 S2, No murmurs Gastrointestinal: Normal bowel sounds, Soft and benign, Non-distended, No tenderness, Other (Peritoneal dialysis catheter intact) Musculoskeletal: No clubbing, No swelling, No tenderness Integumentary: No rashes Neurological: Normal speech, Normal strength at 5/5 x4 extr, Normal tone, Sensation intact, Cranial nerves 3-12 intact, Normal affect, Abnormal gait Lymphatics: No axilla or inguinal lymphadenopathy - Studies Laboratory Data (last 24 hrs) 10/23/17 00:09: PT 11.0, INR 0.93 10/23/17 00:09: WBC 7.3 D, Hgb 8.8 L, Hct 26.9 L, Plt Count 217 10/23/17 00:09: B-Natriuretic Peptide 231 H 10/23/17 00:09: Sodium 135, Potassium 4.0, BUN 63 H, Creatinine 13.00 H*, Glucose 133 H, Magnesium 2.3, Total Bilirubin 0.7, AST 25, ALT 17, Alkaline Phosphatase 71 Assessment & Plan - Problems (Diagnosis) (1) Vertigo Current Visit: Yes Status: Acute (2) Peritoneal dialysis status Current Visit: Yes Status: Acute (3) ESRD on hemodialysis Onset Date: 05/09/16 Current Visit: No Status: Acute (4) Hypertensive urgency Onset Date: 05/09/16 Current Visit: No Status: Acute (5) Diabetes mellitus Onset Date: 05/01/15 Current Visit: No Status: Chronic Qualifiers: Diabetes mellitus type: type 2 (6) HTN (hypertension) Onset Date: 11/05/14 Current Visit: No Status: Chronic Qualifiers: (7) History of CVA with residual deficit Current Visit: No Status: Chronic (8) Hyperlipidemia Current Visit: No Status: Chronic Qualifiers: (9) Rheumatoid arthritis Current Visit: No Status: Chronic (10) Hypocalcemia Current Visit: Yes Status: Acute (11) Anemia Current Visit: Yes Status: Acute Qualifiers: Anemia type: due to chronic kidney disease - Plan PLAN: 1. Antivert 2. Calcium supplementation 3. Check phosphorus level 4. MRI of the brain 5. Workup anemia which is most likely related to chronic kidney disease 6. Neuro consultation if the vertigo does not improve 7. GI and DVT prophylaxis Discharge Plan: Home Plan to discharge in: 48 Hours - Advance Directives Does patient have a Living Will: No Does patient have a Durable POA for Healthcare: No - Code Status/Comfort Care Code Status Assessed: Yes Code Status: Full Code Critical Care: No Time Spent Managing PTS Care (In Minutes): 50
--- NOTE | 2017-10-23 09:14 | RAD REPORT ---
EXAM DESCRIPTION: CT - Head Brain Wo Cont - 10/23/2017 3:16 am CLINICAL HISTORY: Weakness, dizziness, right hand numbness A preliminary written report was provided at the time of the study, and the report was reviewed prio r to final dictation. COMPARISON: CT head April 2016 TECHNIQUE: Axial 5 mm thick images of the head were obtained without IV contrast. All CT scans are performed using dose optimization technique as appropriate and may include automated exposure control or mA/KV adjustment according to patient size. FINDINGS: No intracranial hemorrhage, mass, edema or shift of mid-line structures. No acute infarcti on changes seen. No abnormal extra-axial fluid collections. Ventricles are normal. No measurable atro phy or chronic ischemic change. Mastoid air cells and visualized portions of the paranasal sinuses are clear. No acute bony findings. IMPRESSION: Negative noncontrast CT head examination for acute or significant finding. No significant change from the comparison. Ongoing concerns for CVA can be addressed with MR imaging.
[2017-10-23] MEDS: CARVEDILOL 25 MG TAB PO SCH ×2 (09:28→21:15)
[2017-10-23] MEDS: ASPIRIN 81 MG CHEWABLE TABLET PO SCH (09:29)
[2017-10-23] MEDS: HYDRALAZINE HCL 25 MG TABLET PO SCH ×3 (09:29→21:15)
[2017-10-23] MEDS: ROSUVASTATIN 10 MG TAB PO SCH (09:29)
[2017-10-23] MEDS: CLOPIDOGREL 75 MG TABLET PO SCH (09:29)
[2017-10-23] MEDS: MECLIZINE HCL 12.5 MG TAB PO SCH ×3 (09:30→21:15)
[2017-10-23] MEDS: AMLODIPINE 5 MG TAB PO SCH (09:30)
--- NOTE | 2017-10-23 09:52 | RAD REPORT ---
EXAM DESCRIPTION: RAD - Chest Pa And Lat (2 Views) - 10/23/2017 3:52 am CLINICAL HISTORY: Chest pain, weakness, dizziness, cough COMPARISON: October 18 TECHNIQUE: PA and lateral views of the chest were obtained. FINDINGS: The lungs are clear of failure, infiltrate or mass. No new or progressive lung parenchymal process since comparison. Heart size is normal and central vasculature is within normal limits. N o pleural effusion or pneumothorax seen. No acute bony finding noted. No aortic abnormality. IMPRESSION: No acute cardiopulmonary process. No significant interval change.
[2017-10-23] MEDS ORDERED: LORazepam 2 MG/ML VIAL IV ONE (10:36)
[2017-10-23 10:39] LABS: Absolute Lymphocytes (CBC) 1.5 K/uL (0.7-4.9); Absolute Monocytes 0.5 K/uL (0.1-1.3); Absolute Neutrophil 5.7 K/uL (1.8-8.0); Basophils % 0.7 % (0-1.3); Eosinophils % 2.7 % (0-4.4); Hematocrit 28.8 % (36.0-45.0); Lymphocytes % 18.9 % (15.3-44.8); MCH 29.3 pg (27.0-35.0); MCV 89.7 fL (80-100); MPV 9.7 fL (7.6-11.3); Monocytes % 6.1 % (3.3-12.3); RBC Red Blood Cell Count 3.21 M/uL (3.86-4.86)
[2017-10-23 11:01] LABS: CKMB Creatine Kinase MB 5.9 ng/ml (0.3-4.0)
--- NOTE | 2017-10-23 11:33 | RAD REPORT ---
EXAM DESCRIPTION: MRI - Brain Wo Cont - 10/23/2017 11:08 am CLINICAL HISTORY: Dizziness, possible CVA COMPARISON: CT head October 23, MR brain March 2016 TECHNIQUE: Sagittal T1-weighted images were obtained along with axial PD, heavily T2-weighted and T2 -FLAIR images. Axial DWI and ADC mapping sequences were also obtained along with coronal heavily T2-w eighted images. FINDINGS: No intracranial hemorrhage, mass or acute infarction. There is no edema or shift of midlin e structures. No extra-axial fluid collections. Moyer-matter/white matter junction is preserved. Signa l voids are seen as a normal finding in the major intracranial vessels. Scattered chronic ischemic ch anges are present in the cerebral white matter. Pattern is similar back to 2016. No significant atrop hy change. Ventricles are normal. No globe or orbital content abnormality identifiable. Mastoid air cells are clear. Paranasal sinuses are grossly clear. Artifact limits paranasal sinus ass essment. IMPRESSION: Mild chronic ischemic change similar to 2016 MRI. No acute intracranial finding.
[2017-10-23 11:59] LABS: BUN Blood Urea Nitrogen 61 mg/dL (6-20); Bicarbonate 22 mEq/L (21-31); Glucose Level 115 mg/dL (65-120); Magnesium 2.2 mg/dL (1.8-2.5); Potassium 4.3 mEq/L (3.6-5.0); Sodium Level 134 mEq/L (135-145); Thyroid Stimulating Hormone 3.51 uIU/mL (0.34-5.60)
[2017-10-23 12:04] LABS: Folic Acid, (Folate) > 22.3 ng/ml (>5.21)
[2017-10-23 12:07] LABS: Phosphorus 11.1 mg/dL (2.5-4.3)
--- NOTE | 2017-10-23 12:45 | EKG ---
Test Date: 2017-10-23 Test Time: 00:41:07 Hand Shaper: EMI MEASUREMENT RESULTS: Intervals: Rate: 69 AK: 136 QRSD: 70 QT: 444 QTc: 475 [place]: P: 40 AK: 136 QRS: 3 T: -1 INTERPRETIVE STATEMENTS: Normal sinus rhythm Inferior infarct, age undetermined Abnormal ECG Compared to ECG 10/18/2017 15:42:01 No significant changes Electronically Signed On 10-23-17 12:43:31 CDT by Franki El
--- NOTE | 2017-10-23 13:20 | PN ---
Date of Progress Note: 10/23/2017 Subjective: The patient was seen and examined. Chart reviewed and case discussed with RN. The katlyn ent states that she is still very dizzy anytime she looks around with vertigo sensation. Review of Systems: Negative except as above. Medications: Reviewed. Physical Examination: Vital Signs: Temperature 98.7, heart rate 69, blood pressure 175/77, respirations 19, O2 98% on room air. General: Awake, alert, oriented x3, some mild distress, obese, BMI 34.4, ill-appearing female. CV: S1, S2. No murmurs. Regular rate and rhythm. Peripheral pulses present. Respiratory: Clear to auscultation bilaterally. No wheezing. Gastrointestinal: Abdomen is soft, nontender, nondistended. Positive bowel sounds. Extremities: No clubbing, cyanosis. The patient does have trace peripheral edema. Neurologic: Nonfocal. Laboratory Data: Pending. Assessment And Plan: A 57-year-old female with: 1.Vertigo. We will continue with Antivert IV fluids. 2.End-stage renal disease, on peritoneal dialysis. We will consult Dr. Doe, followup with isaak foreman. 3.Hypertensive urgency. Resume home medications. Add p.r.n. medications. 4.Diabetes mellitus type 2, insulin requiring with hyperglycemia. We will continue home dose and sl iding scale insulin. 5.Essential hypertension. 6.History of cerebrovascular accident without any residual defect. 7.Hyperlipidemia. 8.Rheumatoid arthritis. 9.Hypocalcemia. 10.Anemia of chronic disease. Monitor H and H. 11.Gastrointestinal and deep venous thrombosis prophylaxis addressed. Plan: Continue with PT. Carotid ultrasound. MRI of brain pending. /MODL Voice ID: [id number] Report ID: [id number]
[2017-10-23 16:37] LABS: CKMB Creatine Kinase MB 5.4 ng/ml (0.3-4.0)
[2017-10-23] MEDS ORDERED: INSULIN 70/30 100 UNITS/ML SQ SCH (21:00)
--- NOTE | 2017-10-23 22:07 | CON ---
Date of Consultation: 10/23/2017 Chief Complaint: End-stage renal disease, on dialysis. History Of Present Illness: The patient has multiple medical problems including history of end-stage renal disease. She has been on PD dialysis. She came to the hospital today because of dizziness. She was having vertigo for at least 24 hours, was unable to ambulate, and she was complaining of balance problems. She denied syncope, but she was complaining of numbness of the right hand. She denied any difficulty with peritoneal dialysis. Denied outflow problem. Denied any discoloration or haziness of PD fluid. The patient came to the hospital for evaluation to rule out CVA and she was admitted for workup of possible CVA. Blood pressure was elevated, but it was improving with medication. Review of Systems: General: She denies fever or chills. Eyes: Denies vision changes. Ears, Nose, Mouth, and Throat: Denies sore throat or earache. Respiratory: Denies PND or orthopnea. Cardiovascular: Denies chest pain or palpitation. GI: Denies nausea or vomiting. : Denies dysuria or hematuria. Musculoskeletal: Denies muscle aches or joint swelling. Neurological: Denies tremors or syncope. She is complaining of dizziness and difficulty with balance and complains of numbness of the right hand. All other systems reviewed and all are negative. Past Medical History: End-stage renal disesae, peritoneal dialysis, Diabetes mellitus, hypertension, hyperlipidemia, TIA, rheumatoid arthritis, angina, C- section, appendectomy, history of dialysis. Currently, she on PD dialysis. Family History: Father; diabetes mellitus. Mother; diabetes mellitus. Physical Examination: Vital Signs: Blood pressure is 155/70, heart rate 69, respiratory rate 19, SpO2 98%, temperature 98.7. Eyes: Anicteric sclerae. EOMI. Ears, Nose, Mouth and Throat: Oral mucosa moist. No pallor. Neck: Supple. No JVD. No bruits. Lungs: Clear to auscultation bilaterally. Heart: S1, S2. No pericardial friction rub Abdomen: Soft, benign, nontender. Extremities: Slight edema present in both legs. SKIN : no cyanosis, no oozing Laboratory Data: WBC 7.3, hemoglobin 8.8, hematocrit 26.9, platelet count 217. Sodium 135, potassium 4.0, BUN 63, creatinine 13, glucose 133, magnesium 2.3, bilirubin 0.7, AST 25, ALT 17, AP is 71. Impression And Plan: 1. End-stage renal disease. The patient will need to resume peritoneal dialysis. I discussed case with the patient'S nurse and charge nurse on the floor. The patient needs to be transferred for peritoneal dialysis because the hospital does not provide peritoneal dialysis care and nursing staff. 2. Vertigo. The patient is undergoing workup to rule out cerebrovascular accident. 3. Hypertensive urgency. The patient will continue medication for blood pressure control. 4. Diabetes mellitus. Continue insulin. 5. History of cerebrovascular accident with residual deficit. Neurology consultation obtained by primary team. 6. Rheumatoid arthritis. The patient will have followup with PCP and Rheumatology. SIMONE/SERG Voice ID: [id number] Report ID: [id number]
[2017-10-24 04:25] VITALS: O2SAT 95
[2017-10-24 04:36] LABS: Absolute Lymphocytes (CBC) 2.1 K/uL (0.7-4.9); Absolute Monocytes 0.6 K/uL (0.1-1.3); Basophils % 0.5 % (0-1.3); Eosinophils % 3.1 % (0-4.4); Hematocrit 29.1 % (36.0-45.0); Lymphocytes % 23.5 % (15.3-44.8); MCH 29.4 pg (27.0-35.0); MCV 89.4 fL (80-100); MPV 9.7 fL (7.6-11.3); Monocytes % 6.3 % (3.3-12.3); RBC Red Blood Cell Count 3.25 M/uL (3.86-4.86)
[2017-10-24 05:21] LABS: Albumin 2.8 g/dL (3.2-5.5); Bilirubin Total 0.4 mg/dL (0.3-1.2); Potassium 4.2 mEq/L (3.6-5.0); Protein, Total 5.7 g/dL (6.0-8.3)
[2017-10-24] MEDS: MECLIZINE HCL 12.5 MG TAB PO SCH ×2 (09:00→10:49)
[2017-10-24 10:20] VITALS: TEMP 97.5
[2017-10-24] MEDS: ASPIRIN 81 MG CHEWABLE TABLET PO SCH (10:49)
[2017-10-24] MEDS: ROSUVASTATIN 10 MG TAB PO SCH (10:50)
[2017-10-24] MEDS: HYDRALAZINE HCL 25 MG TABLET PO SCH (10:50)
[2017-10-24] MEDS: AMLODIPINE 5 MG TAB PO SCH (10:50)
[2017-10-24] MEDS: CARVEDILOL 25 MG TAB PO SCH (10:50)
[2017-10-24] MEDS: CLOPIDOGREL 75 MG TABLET PO SCH (10:50)
[2017-10-24 15:21] VITALS: BP 185/79
--- NOTE | 2017-10-25 14:01 | DS ---
Date of Discharge: 10/24/2017 Consultants: Dr. Aparicio and Dr. Doe with Nephrology. Admitting Diagnoses: 1. Vertigo. 2. Peritoneal dialysis. 3. End-stage renal disease, on dialysis. 4. Hypertensive urgency. 5. Diabetes mellitus type 2, insulin dependent. 6. Essential hypertension. 7. History of cerebrovascular accident with residual deficit. 8. Hyperlipidemia. 9. Rheumatoid arthritis. 10. Hypocalcemia. 11. Anemia of chronic disease. Discharge Diagnoses: 1. Vertigo. 2. End-stage renal disease on peritoneal dialysis. 3. Hypertensive urgency. 4. Diabetes mellitus type 2, insulin requiring with hyperglycemia. 5. History of CVA without any residual defects. 6. Essential hypertension. 7. Hyperlipidemia. 8. Rheumatoid arthritis. 9. Hypocalcemia. 10. Anemia of chronic disease. 11. Obesity, BMI 34. Hospital Course: The patient is a 57-year-old female who came in with dizziness , having vertigo, difficulty ambulating. The patient was found to have multiple electrolyte abnormalities. She does have history of end-stage renal disease on peritoneal dialysis. The patient was evaluated for possible stroke causing the vertigo symptoms. MRI of the brain was done which did not show any acute intracranial finding. Initially, her head CT scan was negative for any significant findings. The patient was hydrated with IV fluids, placed on calcium replacement. She did have a mildly elevated CK level, which trended down with IV fluids. Nephrology was consulted due to her end-stage renal disease. However, peritoneal dialysis was unable to be performed in the hospital. Dr. Aparicio recommended transfer initially. However, the patient's symptoms resolved and therefore the patient was to be sent home and continue peritoneal dialysis at home. Her vital signs otherwise improved. Her blood pressure improved with medications. Her dizziness resolved. She was able to ambulate without any difficulty, not getting dizziness. The patient, during her initial physical therapy evaluation, had received Ativan in order to tolerate the MRI and therefore was drowsy during her initial evaluation with repeat evaluation. The patient was able to ambulate well with some rest breaks in between. The patient was then cleared for discharge from Nephrology standpoint and was sent home in a stable condition. Activity: As tolerated. Fall precautions. Medications: As per medication reconciliation list. Followup: Follow up with primary care physician in 2-3 days. Follow up with metal flow coordinator in [place] 1 week. Return to ER for worsening condition. Complete peritoneal dialysis at home today. Repeat BMP in 2 days. Physical Examination: General: Awake, alert, oriented, in no acute distress. CV: S1, S2. No murmurs. Respiratory: Moving air well bilaterally. No wheezing. Abdomen: Soft, nontender, nondistended. Positive bowel sounds. Extremities: No clubbing, cyanosis, edema. SA/MODL Voice ID: [id number] Report ID: [id number] [facility]
== END 2017-10-24 13:56 | disposition home or self-care (01) ==
LOC: ER 23:02 → ERHOLD 10-23 04:57 → 2ND 10-23 05:54
PROVIDERS: ADMIT Hospitalist; ATTEND Hospitalist
DX: R42 Dizziness and giddiness (principal); I12.0 Hypertensive chronic kidney disease with stage 5 chronic kidney disease or end stage renal disease; E11.22 Type 2 diabetes mellitus with diabetic chronic kidney disease; E11.65 Type 2 diabetes mellitus with hyperglycemia; N18.6 End stage renal disease; E78.5 Hyperlipidemia, unspecified; E83.51 Hypocalcemia; D63.1 Anemia in chronic kidney disease; M06.9 Rheumatoid arthritis, unspecified; E66.9 Obesity, unspecified; Z68.34 Body mass index [BMI] 34.0-34.9, adult; Z86.73 Personal history of transient ischemic attack (TIA), and cerebral infarction without residual deficits
CPT/HCPCS: 36415 ×2; 70450; 70551; 71046; 80048 ×2; 80053; 80076; 81003; 81025; 82550 ×3; 82553 ×2; 82607; 82746; 82962 ×9; 83540; 83735 ×2; 83880; 84100; 84439; 84443; 84484 ×3; 85025 ×3; 85610; 93005; 97116; 97163; 99285; G0378 ×2; J2270

== ENCOUNTER 2018-05-10 05:59 | Day surgery (SDC) | payer OTHER ==
[2018-05-07 16:30] LABS: Protime INR 0.95
[2018-05-07 16:48] LABS: Albumin 2.8 g/dL (3.4-5.0); Bilirubin Total 0.3 mg/dL (0.2-1.0); Potassium 3.7 mmol/L (3.5-5.1)
--- OUTSIDE RECORDS SUMMARY | 2018-05-10 06:02 | XMS REPORT | Clinical Summary ---
:1960 Author Organization [facility] Address [address] [place] [address] Care Team Providers Name Role Phone Mark Lipscomb Primary Care Provider Allergies Active Allergy Reactions Severity Noted Date Comments Adhesive Tape-Silicones 01/26/2017 itchiness Latex Itching 11/24/2016 Pregabalin Itching 11/24/2016 Medications Medication Sig Dispensed Refills Start Date End Date Status aspirin (ECOTRIN) 81 Take 81 mg by 0 Active MG enteric coated mouth. tablet carvedilol (COREG) Take 25 mg by 0 Active 25 MG tablet mouth. clopidogrel (PLAVIX) Take 75 mg by 0 Active 75 mg tablet mouth. sevelamer (RENAGEL) Take 800 mg by 0 Active 800 MG tablet mouth. cyclobenzaprine Take 5 mg by 0 Active (FLEXERIL) 5 mg mouth. tablet amLODIPine (NORVASC) Take 10 mg by 0 Active 10 mg tablet mouth. atorvastatin Take 20 mg by 0 Active (LIPITOR) 20 MG mouth. Default tablet OP ins senna (SENOKOT) 8.6 Take 1 tablet 0 Active mg tablet by mouth. LACTOBACILLUS Take by mouth. 0 Active REUTERI ORAL lisinopril Take 20 mg by 0 Active (PRINIVIL,ZESTRIL) mouth. 20 mg tablet ergocalciferol Take 50,000 0 Active (VITAMIN D2) 50,000 Units by mouth. unit capsule acetaminophen Take 500 mg by 0 Active (TYLENOL) 500 MG mouth. tablet docusate sodium Take 100 mg by 0 Active (COLACE) 100 MG mouth. capsule lactulose 10 gram/15 Take 10 g by 0 Active mL (15 mL) solution mouth. gentamicin Apply 0 Active (GARAMYCIN) 0.1 % topically. cream rosuvastatin Take 20 mg by 0 Discontinued (CRESTOR) 20 MG mouth. 7 tablet calcium carbonate Chew 1 tablet 0 Discontinued (TUMS) 200 mg daily. 7 calcium (500 mg) chewable tablet lisinopril Take 40 mg by 0 Discontinued (PRINIVIL,ZESTRIL) mouth daily. 7 40 mg tablet FLUoxetine (PROzac) Take 20 mg by 0 Discontinued 20 MG capsule mouth daily. 7 insulin degludec Inject 12-16 0 Discontinued (TRESIBA FLEXTOUCH Units under the 7 U-100) 100 unit/mL skin nightly. (3 mL) insulin pen lidocaine (LIDODERM) Place 1 patch 0 Discontinued 5 % on the skin. 7 Remove & Discard patch within 12 hours or as directed by polyvinyl alcohol Administer 1 15 mL 0 05/19/2017 (LIQUIFILM TEARS) drop to both 8 1.4 % ophthalmic eyes 4 (four) solution times a day as needed for dry eyes for up to 30 days. acetaminophen-codein Take 1 tablet 30 tablet 0 05/19/2017 e (TYLENOL WITH by mouth every 8 CODEINE #3) 300-30 8 (eight) hours mg per tablet as needed for moderate pain for up to 10 days. acetaminophen-codein Take 1-2 30 tablet 0 07/22/2017 e (TYLENOL WITH tablets by 8 CODEINE #3) 300-30 mouth every 6 mg [...] follow-up Anival Mitchell MD (Primary Dx) 07/21/2017 Surgery General Surgery Izzy Ayers MD Catheter, Intraperitoneal, Laparoscopic, Bilateral salpingectomy 07/21/2017 Anesthesia Event General Surgery Yajaira Hill CRNA 07/21/2017 - Emergency General Internal Adriel Corbin Generalized abdominal pain (Primary Dx); 07/22/2017 Alfredo Jimenez III, MD Peritoneal dialysis catheter dysfunction, initial encounter Anival Ayers MD 05/18/2017 Anesthesia Event General Surgery Evelio Hughes MD 05/18/2017 Surgery General Surgery Andria, Laparoscopic Revision Anival Mitchell MD Insertion Peritoneal Dialysis Catheter. 05/17/2017 - Emergency General Internal SunnyVictorino Peritoneal dialysis catheter dysfunction, initial encounter (Primary Dx); 05/19/2017 Alfredo Jimenez MD Uncontrolled hypertension Joel Lipscomb MD after 05/09/2017 Family History Medical History Relation Name Comments Diabetes Father Hypertension Father Kidney disease Father Diabetes Mother Hypertension Mother Relation Name Status Comments Father Mother Alive Social History Tobacco Use Types Packs/Day Years Used Date Never Smoker Smokeless Tobacco: Never Used Alcohol Use Drinks/Week oz/Week Comments No Sex Assigned at Date Recorded Not on file Job Start Date Occupation Industry Not on file Not on file Not on file Travel History Travel Start Travel End No recent travel history available. Last Filed Vital Signs Vital Sign Reading Time Taken Blood Pressure 98/52 08/09/2017 9:40 AM CDT Pulse 74 08/09/2017 9:40 AM CDT Temperature 36.1 C (96.9 F) 07/22/2017 8:52 AM ON SITE MANAGER Respiratory Rate 18 07/22/2017 8:52 AM ON SITE MANAGER Oxygen Saturation 100% 07/22/2017 8:52 AM ON SITE MANAGER Inhaled Oxygen Concentration - - Weight 82.6 kg (182 lb) 08/09/2017 9:40 AM CDT Height 157.5 cm (5' 2") 08/09/2017 9:40 AM CDT Body Mass Index 33.29 08/09/2017 9:40 AM CDT Plan of Treatment Health Maintenance Due Date Last Done Comments CERVICAL CANCER SCREENING 08/13/1983 BREAST CANCER SCREENING 2012 COLON CANCER SCREENING 2012 SHINGRIX VACCINE (1 of 2) 2012 INFLUENZA VACCINE 12/27/2017 HEPATITIS B VACCINES Aged Out No longer eligible based on patient's age to complete this topic IPV VACCINES Aged Out No longer eligible based on patient's age to complete this topic MENINGOCOCCAL VACCINE Aged Out No longer eligible based on patient's age to complete this topic Implants Implanted Type Area Drafter Marine Device Shelf Model / Identifier Expiration Serial / Date Lot Peritoneal Dialysis Catheter Terrence Harman W/O Bead And Flange Catheter, N/A: [employer] 03/27/2020 [id number] / Implanted: Qty: 1 on 11/24/2016 by Anival Ayers MD Dialysis Abdomen , INTERNATIONAL, / [facility] [id number] Quadrant/No n Specific Procedures Procedure Name Priority Date/Time Associated Comments Diagnosis ZZESTIMATED GFR Routine 07/22/2017 6:00 Results for this AM ON SITE MANAGER procedure are in the results section. PHOSPHORUS LEVEL Routine 07/22/2017 6:00 Results for this AM ON SITE MANAGER procedure are in the results section. MAGNESIUM LEVEL Routine 07/22/2017 6:00 Results for this AM ON SITE MANAGER procedure are in the results section. BASIC METABOLIC PANEL Routine 07/22/2017 6:00 Results for this AM ON SITE MANAGER procedure are in the results section. HC COMPLETE BLD COUNT Routine 07/22/2017 6:00 Results for this W/AUTO DIFF AM ON SITE MANAGER procedure are in the results section. HEPATITIS B SURFACE Routine 07/21/2017 9:05 Results for this AB, QUANTITATIVE PM ON SITE MANAGER procedure are in the results section. HEPATITIS B SURFACE Routine 07/21/2017 9:05 Results for this ANTIBODY PM ON SITE MANAGER procedure are in the results section. HEPATITIS B SURFACE Routine 07/21/2017 9:05 Results for this ANTIGEN PM ON SITE MANAGER procedure are in the results section. POC GLUCOSE Routine 07/21/2017 8:56 Results for this PM ON SITE MANAGER procedure are in the results section. POC GLUCOSE Routine 07/21/2017 6:20 Results for this PM ON SITE MANAGER procedure are in the results section. POC GLUCOSE Routine 07/21/2017 5:23 Results for this PM ON SITE MANAGER procedure are in the results section. CA AN ELECTIVE Routine 07/21/2017 4:27 ENDOTRACHEAL AIRWAY PM ON SITE MANAGER Procedure Note - Sam Nick CRNA - 07/21/2017 4:27 PM ON SITE MANAGER Airway Date/Time: 07/21/2017 4:28 PM Performed by: [...] No Number of Attempts at Approach: 1 POC GLUCOSE Routine 07/21/2017 3:53 PM ON SITE MANAGER ZZESTIMATED GFR STAT 07/21/2017 12:41 PM ON SITE MANAGER PARTIAL THROMBOPLASTIN TIME STAT 07/21/2017 12:41 PM ON SITE MANAGER Results for this (PTT) procedure are in the results section. PROTHROMBIN TIME WITH INR STAT 07/21/2017 12:41 PM ON SITE MANAGER HC COMPLETE BLD COUNT W/AUTO STAT 07/21/2017 12:41 PM ON SITE MANAGER Results for this DIFF procedure are in the results section. BASIC METABOLIC PANEL STAT 07/21/2017 12:41 PM ON SITE MANAGER SURGICAL PATHOLOGY REQUEST Routine 07/21/2017 7:52 AM ON SITE MANAGER TRANSFUSE RED BLOOD CELLS Routine 05/19/2017 5:47 PM ON SITE MANAGER POC GLUCOSE Routine 05/19/2017 4:36 PM ON SITE MANAGER POC GLUCOSE Routine 05/19/2017 12:38 PM ON SITE MANAGER PREPARE RBC Timed 05/19/2017 10:10 AM ON SITE MANAGER TYPE AND SCREEN Timed 05/19/2017 10:10 AM ON SITE MANAGER POC GLUCOSE Routine 05/19/2017 8:30 AM ON SITE MANAGER ZZESTIMATED GFR Routine 05/19/2017 4:55 AM ON SITE MANAGER HC COMPLETE BLD COUNT W/AUTO Routine 05/19/2017 4:55 AM ON SITE MANAGER Results for this DIFF procedure are in the results section. MAGNESIUM LEVEL Routine 05/19/2017 4:55 AM ON SITE MANAGER PHOSPHORUS LEVEL Routine 05/19/2017 4:55 AM ON SITE MANAGER BASIC METABOLIC PANEL Routine 05/19/2017 4:55 AM ON SITE MANAGER POC GLUCOSE Routine 05/18/2017 8:59 PM ON SITE MANAGER POC GLUCOSE Routine 05/18/2017 5:11 PM ON SITE MANAGER POC GLUCOSE Routine 05/18/2017 3:11 PM ON SITE MANAGER CA AN ELECTIVE ENDOTRACHEAL Routine 05/18/2017 2:14 PM ON SITE MANAGER AIRWAY Procedure Note - Dena Hardy CRNA - 05/18/2017 2:13 PM ON SITE MANAGER Airway Date/Time: 05/18/2017 2:00 PM Performed by: DENA HARDY Authorized by: MADHAV CASTILLO Location: OR Urgency: Elective Difficult Airway: No Resident/FLEET MANAGER/AA: DENA HARDY Performed by: resident/FLEET MANAGER/AA Preoxygenated with 100% O2: Yes Mask Ventilation: [...] Approach: 1 +ETCO2, continuous. Atraumatic. ETOH out POC PANEL 4 Routine 05/18/2017 1:40 PM ON SITE MANAGER ECG ED PRELIMINARY Routine 05/18/2017 12:39 PM ON SITE MANAGER Results for this INTERPRETATION procedure are in the results section. POC GLUCOSE Routine 05/18/2017 9:06 AM ON SITE MANAGER XR KUB KIDNEY URETER BLADDER STAT 05/17/2017 7:42 PM ON SITE MANAGER ZZESTIMATED GFR STAT 05/17/2017 2:44 PM ON SITE MANAGER MAGNESIUM LEVEL STAT 05/17/2017 2:44 PM ON SITE MANAGER PHOSPHORUS LEVEL STAT 05/17/2017 2:44 PM ON SITE MANAGER COMPREHENSIVE METABOLIC STAT 05/17/2017 2:44 PM ON SITE MANAGER Results for this PANEL procedure are in the results section. PARTIAL THROMBOPLASTIN TIME STAT 05/17/2017 2:44 PM ON SITE MANAGER Results for this (PTT) procedure are in the results section. PROTHROMBIN TIME WITH INR STAT 05/17/2017 2:44 PM ON SITE MANAGER HC COMPLETE BLD COUNT W/AUTO STAT 05/17/2017 2:44 PM ON SITE MANAGER Results for this DIFF procedure are in the results section. ECG 12-LEAD STAT 05/17/2017 12:29 PM ON SITE MANAGER after 05/09/2017 Results Estimated GFR (07/22/2017 6:00 AM ON SITE MANAGER)Only the most recent of4 resultswithin the time period is included. GFR Non Af Amer 4 (A) mL/min/1.73 m2 [facility] DEPARTMENT OF PATHOLOGY AND GENOMIC MEDICINE GFR Af Amer 5 (A) mL/min/1.73 m2 [facility] DEPARTMENT OF Comment: PATHOLOGY AND GENOMIC Chronic kidney disease: <60 mL/min/1.73m2 MEDICINE Kidney failure: <15 mL/min/1.73m2 The estimated GFR is calculated from the IDMS-traceable Modification of Diet in Renal Disease Equation. The accuracy of the calculation is poor when the creatinine is normal. Calculated values >90 mL/min/1.73m2 are not reported. This equation has not been validated in children (<18 years), women, the elderly (>70 years), or ethnic groups other than Caucasians and Americans. Specimen Plasma specimen Performing Organization Address City/State/Zipcode Phone Number [facility] DEPARTMENT OF PATHOLOGY [address] [place] [address] AND [employer] CBC with platelet and differential (07/22/2017 6:00 AM ON SITE MANAGER)Only the most recent of4 resultswithin the time period is included. WBC 10.5 4.5 - 11.0 k/uL [facility] DEPARTMENT OF PATHOLOGY AND GENOMIC MEDICINE RBC 3.29 (L) 4.20 - 5.50 m/uL [facility] DEPARTMENT OF PATHOLOGY AND GENOMIC MEDICINE HGB 9.8 (L) 12.0 - 16.0 g/dL [facility] DEPARTMENT OF PATHOLOGY AND GENOMIC MEDICINE HCT 30.6 (L) 37.0 - 47.0 % [facility] DEPARTMENT OF PATHOLOGY AND GENOMIC MEDICINE MCV 93.0 82.0 - 100.0 fL [facility] DEPARTMENT OF PATHOLOGY AND GENOMIC MEDICINE MCH 29.8 27.0 - 34.0 pg [facility] DEPARTMENT OF PATHOLOGY AND GENOMIC MEDICINE MCHC 32.0 31.0 - 37.0 g/dL [facility] DEPARTMENT OF PATHOLOGY AND GENOMIC MEDICINE RDW - SD 45.4 37.0 - 55.0 fL [facility] DEPARTMENT OF PATHOLOGY AND GENOMIC MEDICINE MPV 11.0 6.9 - 11.0 fL [facility] DEPARTMENT OF PATHOLOGY AND GENOMIC MEDICINE Platelet count 265 150 - 400 K/uL [facility] DEPARTMENT OF PATHOLOGY AND GENOMIC MEDICINE Nucleated RBC 0.00 /100 WBC [facility] DEPARTMENT OF PATHOLOGY AND GENOMIC MEDICINE Neutrophils 78.8 (H) 39.0 - 69.0 % [facility]PARTMENT OF PATHOLOGY AND GENOMIC MEDICINE Lymphocytes 14.7 (L) 25.0 - 45.0 % [facility]PARTMENT OF PATHOLOGY AND GENOMIC MEDICINE Monocytes 3.9 0.0 - 10.0 % [facility] DEPARTMENT OF PATHOLOGY AND GENOMIC MEDICINE Eosinophils 1.5 0.0 - 5.0 % [facility] DEPARTMENT OF PATHOLOGY AND GENOMIC MEDICINE Basophils 0.4 0.0 - 1.0 % [facility] DEPARTMENT OF PATHOLOGY AND GENOMIC MEDICINE Immature granulocytes 0.7 0.0 - 1.0 % [facility] DEPARTMENT OF PATHOLOGY AND GENOMIC MEDICINE Specimen Blood Performing Organization Address City/[facility] Centercode Phone Number [facility] DEPARTMENT OF PATHOLOGY [address] [place] [address] AND [employer] Phosphorus level (07/22/2017 6:00 AM ON SITE MANAGER)Only the most recent of3 resultswithin the time period is included. Phosphorus 9.0 (HH)Comment: Final 2.4 - 4.5 mg/dL [facility] DEPARTMENT OF PATHOLOGY results called to and read AND [facility] back by GUZMAN AMATO RN 07/22/2017 06:55 EXT Specimen Plasma specimen Performing Organization Address City/[facility]/Zipcode Phone Number [facility] DEPARTMENT OF PATHOLOGY [address] [place] [address] AND [facility] Magnesium level (07/22/2017 6:00 AM ON SITE MANAGER)Only the most recent of3 resultswithin the time period is included. Magnesium 2.3 1.6 - 2.6 mg/dL [facility] DEPARTMENT OF PATHOLOGY AND [facility] Specimen Plasma specimen Performing Organization Address City/[facility]/Zipcode Phone Number [facility] DEPARTMENT OF PATHOLOGY [address] [place] [address] AND [employer] Basic metabolic panel (07/22/2017 6:00 AM ON SITE MANAGER)Only the most recent of3 resultswithin the time period is included. Sodium 141 135 - 148 mEq/L [facility] DEPARTMENT OF PATHOLOGY AND GENOMIC [facility] Potassium 4.1 3.5 - 5.0 mEq/L [facility] DEPARTMENT OF PATHOLOGY AND GENOMIC MEDICINE Chloride 104 98 - 112 mEq/L [facility] DEPARTMENT OF PATHOLOGY AND GENOMIC MEDICINE CO2 18 (L) 24 - 31 mEq/L [facility] DEPARTMENT OF PATHOLOGY AND [facility] Anion gap 19 (H) 7 - 15 mEq/L [facility] DEPARTMENT OF Comment: PATHOLOGY AND GENOMIC Starting from August , anion gap calculation MEDICINE no longer incorporates potassium. Please note the change. BUN 68 (H) 6 - 20 mg/dL [facility] DEPARTMENT OF PATHOLOGY AND GENOMIC MEDICINE Creatinine 10.3 (H) 0.5 - 0.9 mg/dL [facility] DEPARTMENT OF PATHOLOGY AND GENOMIC [facility] Glucose 117 (H) 65 - 99 mg/dL [facility] DEPARTMENT OF PATHOLOGY AND GENOMIC MEDICINE Calcium 6.7 (L) 8.3 - 10.2 mg/dL [facility] OF PATHOLOGY AND [facility] Specimen Plasma specimen Performing Organization Address City/State/Zipcode Phone Number [facility] DEPARTMENT OF PATHOLOGY [address] [facility] [place] [address] AND [facility] Hepatitis B surface Ab, quantitative (07/21/2017 9:05 PM ON SITE MANAGER) Hepatitis B surface Ab 16.36 IU/L [facility] Comment: The anti-HBs is greater than or [...] refer to MMWR May 17, 2013/Vol. 62(No. 10);1-19. Reference Interval: anti-HBs 9.99 IU/L or less ....... Negative 10.00 IU/L or greater .... Positive Results greater than 1,000.00 IU/L are reported as greater than 1,000.00 IU/L. This assay should not be used for blood donor screening, associated re-entry protocols, or for screening Human Cell, Tissues and Cellular and Tissue-Based Products (HCT/P). Performed by [employer] [address] [place] [address] [email or web address], Marc Monae MD - Lab. Director Specimen Serum Performing Organization Address [facility]/Zipcode Phone Number [facility] [address] [place] [address] Hepatitis B surface antibody (07/21/2017 9:05 PM ON SITE MANAGER) Hepatitis B surface Ab Reactive (A) Non-reactive [facility] DEPARTMENT OF PATHOLOGY AND [facility] Specimen Blood Performing Organization Address [facility] Centercode Phone Number [facility] DEPARTMENT OF PATHOLOGY AND [address] [place] [address] Hepatitis B surface antigen (07/21/2017 9:05 PM ON SITE MANAGER) Hepatitis B surface Ag Non-reactive Non-reactive [facility] DEPARTMENT OF PATHOLOGY AND [facility] Specimen Blood Performing Organization Address [facility] Centercode Phone Number [facility] DEPARTMENT OF PATHOLOGY AND [address] [place] [id number] [place] [address] POC glucose (07/21/2017 8:56 PM ON SITE MANAGER)Only the most recent of11 resultswithin the time period is included. POC glucose 116 (H) 65 - 99 mg/dL [facility] DEPARTMENT OF PATHOLOGY AND Comment: GENOMIC MEDICINE RN Notified Meter ID: [id number] Inspector Watch Train: Areli Hopkins Performing Organization Address [facility] Centercode Phone Number [facility] DEPARTMENT OF PATHOLOGY [address] [place] [address] AND [facility] Partial thromboplastin time, activated (07/21/2017 12:41 PM ON SITE MANAGER)Only the most recent of2 resultswithin the time period is included. PTT 31.2 23.0 - 36.0 sec [facility] DEPARTMENT OF Comment: PATHOLOGY AND GENOMIC PTT therapeutic range for unfractionated heparin is MEDICINE 61.0-112.0 seconds which corresponds to Anti-Xa 0.3-0.7 U/ml. Specimen Blood Performing Organization Address [facility] Centercode Phone Number [facility] DEPARTMENT OF PATHOLOGY [address] [place] [address] AND [facility]OM[facility]ICINE Prothrombin time with INR (07/21/2017 12:41 PM ON SITE MANAGER)Only the most recent of2 resultswithin the time period is included. Prothrombin time 13.5 12.0 - 15.0 sec [facility] DEPARTMENT OF PATHOLOGY AND GENOMIC MEDICINE INR 1.0 [facility] DEPARTMENT OF Comment: PATHOLOGY AND GENOMIC The International Normalized Ratio (INR) is a therapeutic MEDICINE monitoring tool for patients who are stable on oral anticoagulant therapy. An INR of 2.0-3.0 is suggested for deep vein thrombosis/pulmonary embolism. Specimen Blood Performing Organization Address City/State/Zipcode Phone Number [facility] DEPARTMENT OF PATHOLOGY [address] [place] [address] AND [facility] Surgical pathology request (07/21/2017 7:52 AM ON SITE MANAGER) [facility] DEPARTMENT OF PATHOLOGY AND GENOMIC MEDICINE Surgical pathology report See link below for PDF [facility] DEPARTMENT OF Lab Report PATHOLOGY AND GENOMIC MEDICINE Result status This is Final Report to [facility] DEPARTMENT OF [id number] PATHOLOGY AND GENOMIC MEDICINE Performing Organization Address [facility] Centercoca Phone Number [facility] DEPARTMENT OF PATHOLOGY [address] [place] [address] AND [facility] Transfuse RBC (05/19/2017 5:47 PM ON SITE MANAGER)Only the most recent of2 resultswithin the time period is included.Prepare RBC, 1 Units (05/19/2017 10:10 AM ON SITE MANAGER) Product name Red Blood Cells -1, [facility] DEPARTMENT OF Leukored PATHOLOGY AND GENOMIC MEDICINE Unit number [id number] [facility] DEPARTMENT OF PATHOLOGY AND GENOMIC MEDICINE Product code [id number] [facility] DEPARTMENT OF PATHOLOGY AND GENOMIC MEDICINE Dispense status Transfused [facility] DEPARTMENT OF PATHOLOGY AND GENOMIC MEDICINE Blood expiration date [id number] [facility] DEPARTMENT OF PATHOLOGY AND GENOMIC MEDICINE Blood type code 5100 [facility] DEPARTMENT OF PATHOLOGY AND GENOMIC MEDICINE Blood type O POSITIVE [facility] DEPARTMENT OF PATHOLOGY AND GENOMIC MEDICINE Performing Organization Address City/[facility] Centercode Phone Number [facility] DEPARTMENT OF PATHOLOGY [address] [place] [address] AND GENOMIC MEDICINE Type and screen (05/19/2017 10:10 AM ON SITE MANAGER) ABO grouping O [facility] DEPARTMENT OF PATHOLOGY AND GENOMIC MEDICINE Rh type POS [facility] DEPARTMENT OF PATHOLOGY AND GENOMIC MEDICINE Antibody screen (gel) NEG [facility] DEPARTMENT OF PATHOLOGY AND GENOMIC MEDICINE Specimen Blood Performing Organization Address [facility]oca Phone Number [facility] DEPARTMENT OF PATHOLOGY [id number] [place] [address] AND GENOMIC MEDICINE POC panel 4 (05/18/2017 1:40 PM ON SITE MANAGER) POC sodium 139 135 - 148 meq/L [facility] DEPARTMENT OF PATHOLOGY AND GENOMIC MEDICINE POC potassium 4.4 3.5 - 5.0 meq/L [facility] DEPARTMENT OF PATHOLOGY AND GENOMIC MEDICINE POC hematocrit 24 (L) 37 - 47 % [facility] DEPARTMENT OF PATHOLOGY AND GENOMIC MEDICINE POC glucose 147 (H) 65 - 99 mg/dL [facility] DEPARTMENT OF PATHOLOGY AND GENOMIC MEDICINE POC hemoglobin 8.2 (L) 12.0 - 16.0 g/dL [facility] DEPARTMENT OF PATHOLOGY AND GENOMIC MEDICINE Specimen Blood Performing Organization Address [facility]ercoca Phone Number [facility] DEPARTMENT OF PATHOLOGY [id number] [place] [address] AND GENOMIC MEDICINE ECG ED Preliminary Interpretation - NOT AN ORDER (05/18/2017 12:39 PM ON SITE MANAGER) Narrative Performed At Victorino Suh MD 05/18/2017 12:39 PM ECG ED Preliminary Interpretation - Not an Order Performed by: VICTORINO SUH Authorized by: VICTORINO SUH ECG reviewed by ED Physician in the absence of a co director: yes Interpretation: Interpretation: normal Rate: ECG rate:77 ECG rate assessment: normal Rhythm: Rhythm: sinus rhythm Ectopy: Ectopy: none QRS: QRS axis:Normal QRS intervals:Normal Conduction: Conduction: normal ST segments: ST segments:Normal T waves: T waves: normal Other findings: Other findings: prolonged qTc interval XR Kub Kidney Ureter Bladder (05/17/2017 7:42 PM ON SITE MANAGER) Narrative Performed At XR KUB KIDNEY URETER BLADDER [facility] CLINICAL INDICATION:PD cath problem COMPARISON:01/19/2017 IMPRESSION: A left-sided peritoneal dialysis catheter is present as on prior exam, the tip coiled in the pelvis. Bowel gas pattern is unremarkable. There are no radiopaque calculi. Moderate atherosclerotic vascular calcifications are present. Bones are intact and unchanged. [facility]-[id number] Procedure Note Interface, Radiology Results Incoming - 05/17/2017 7:48 PM ON SITE MANAGER XR KUB KIDNEY URETER BLADDER CLINICAL INDICATION: PD cath problem COMPARISON: 01/19/2017 IMPRESSION: A left-sided peritoneal dialysis catheter is present as on prior exam, the tip coiled in the pelvis. Bowel gas pattern is unremarkable. There are no radiopaque calculi. Moderate atherosclerotic vascular calcifications are present. Bones are intact and unchanged. [facility]-[id number] Performing Organization Address City/[facility]/Zipcode Phone Number [facility] [address] [place] [address] Comprehensive metabolic panel (05/17/2017 2:44 PM ON SITE MANAGER) Sodium 139 135 - 148 mEq/L [facility] DEPARTMENT OF PATHOLOGY AND GENOMIC MEDICINE Potassium 4.1 3.5 - 5.0 mEq/L [facility] DEPARTMENT OF PATHOLOGY AND GENOMIC MEDICINE Chloride 102 98 - 112 mEq/L [facility] DEPARTMENT OF PATHOLOGY AND GENOMIC MEDICINE CO2 21 (L) 24 - 31 mEq/L [facility] DEPARTMENT OF PATHOLOGY AND GENOMIC MEDICINE Anion gap 16 (H) 7 - 15 mEq/L [facility] DEPARTMENT OF Comment: PATHOLOGY AND GENOMIC Starting from August , anion gap calculation MEDICINE no longer incorporates potassium. Please note the change. BUN 57 (H) 6 - 20 mg/dL [facility] DEPARTMENT OF PATHOLOGY AND GENOMIC MEDICINE Creatinine 9.4 (H) 0.5 - 0.9 mg/dL [facility] DEPARTMENT OF PATHOLOGY AND GENOMIC MEDICINE Glucose 163 (H) 65 - 99 mg/dL [facility] DEPARTMENT OF PATHOLOGY AND GENOMIC MEDICINE Calcium 7.4 (L) 8.3 - 10.2 mg/dL [facility] OF PATHOLOGY [facility]IC[facility] Protein 6.7 6.3 - 8.3 g/dL [facility]OLOGY [facility] MEDIC[facility] Albumin 3.1 (L) 3.5 - 5.0 g/dL [facility]OLOGY [facility] MEDIC[facility] A/G ratio 0.9 0.7 - 3.8 [facility]IC[facility] Alkaline phosphatase 84 35 - 104 U/L [facility] MEDIC[facility] AST 15 10 - 35 U/L [facility]OLOGY [facility] GENOMIC MEDICINE ALT 10 5 - 50 U/L [facility] OF PATHOLOGY AND GENOMIC MEDICINE Total bilirubin 0.4 0.2 - 1.2 mg/dL [facility] OF PATHOLOGY AND GENOMIC MEDICINE Specimen Plasma specimen Performing Organization Address City/[facility]/Zipcode Phone Number [facility] DEPARTMENT OF PATHOLOGY [id number] [place] [address] [facility] ECG 12 lead (05/17/2017 12:29 PM ON SITE MANAGER) Ventricular rate 77 [facility] Atrial rate 77 [facility] CA interval 140 [facility] QRSD interval 76 [facility] QT interval 432 [facility] QTC interval 488 [facility] P axis 1 63 [facility] QRS axis 1 86 [facility] T wave axis 20 [facility] EKG impression Normal sinus rhythm-Low voltage QRS-Prolonged [facility] QT-Abnormal ECG-In automated comparison with ECG of 30-JAN-2017 20:44,-No significant change was found- Performing Organization Address City/State/Zipcode Phone Number [facility] [address] [place] [address] after 05/09/2017 Insurance Payer Benefit Plan / Group Subscriber ID Type Phone Address MEDICARE MEDICARE PART A AND B xxxxxxxxxx Medicare [place], [place] MEDICAID MEDICAID xxxxxxxxx Medicaid Advance Directives Patient has advance care planning documents on file. For more information, please contact:Chaudhry [id number] [place] [address]
--- OUTSIDE RECORDS SUMMARY | 2018-05-10 06:02 | XMS REPORT | Clinical Summary ---
:1960 Author Organization [facility] Address [address] [place] [address] Care Team Providers Name Role Phone Sharpjeimy Primary Care Provider Sergio Doe MD Referring Physician Allergies Active Allergy Reactions Severity Noted Date Comments Pregabalin 03/20/2017 Heart attack Medications Medication Sig Dispensed Refills Start End Date Status Date aspirin 81 MG EC Take 81 mg by 0 Active tablet mouth daily. carvedilol (COREG) Take 25 mg by 0 Active 25 MG tablet mouth 2 (two) times daily with breakfast and dinner. cholecalciferol, Take 50,000 Units 0 Active vitamin D3, 50,000 by mouth once a unit Tab week. sevelamer (RENVELA) Take 2,400 mg by 0 Active 800 mg tablet mouth 3 (three) times daily with meals . amLODIPine Take 10 mg by 0 Active (NORVASC) 10 MG mouth daily. tablet INSULIN DEGLUDEC Inject 12 Units 0 Active (TRESIBA FLEXTOUCH subcutaneously U-100 SUBQ) nightly. cyclobenzaprine Take 5 mg by mouth 0 Active (FLEXERIL) 5 MG 3 (three) times tablet daily as needed for Muscle spasms. traMADol (ULTRAM) Take 50 mg by 0 Active 50 mg tablet mouth every 6 (six) hours as needed for Pain. clopidogrel Take 75 mg by 0 04/16/20 Discontinued (PLAVIX) 75 mg mouth daily. 18 tablet lisinopril Take 40 mg by 0 04/16/20 Discontinued (PRINIVIL,ZESTRIL) mouth daily. 18 40 MG tablet atorvastatin Take 20 mg by 0 04/16/20 Discontinued (LIPITOR) 20 MG mouth daily. 18 tablet senna (SENOKOT) 8.6 Take 1 tablet by 0 04/16/20 Discontinued mg tablet mouth daily. 18 Active Problems Problem Noted Date Patient awaiting renal transplant 04/16/2018 Coronary artery disease involving umkumiut coronary artery of umkumiut heart 04/16 without angina pectoris Encounter for preprocedural cardiovascular examination 03/20/2017 Pre-transplant evaluation for ESRD (end stage renal disease) 11/22/2016 Last Assessment & Plan: Needs to evaluate for PVD ESRD (end stage renal disease) 11/22/2016 Diabetic nephropathy associated with type 2 diabetes mellitus 11/22/2016 H/O stroke without residual deficits 11/22/2016 Last Assessment & Plan: Patient reports residual right side weakness Proliferative diabetic retinopathy of both eyes without macular edema 2016 associated with type 2 diabetes mellitus Diabetic polyneuropathy associated with type 2 diabetes mellitus 11/22/2016 Hyperlipidemia, unspecified hyperlipidemia type 11/22/2016 Secondary hyperparathyroidism of renal origin 11/22/2016 PVD (peripheral vascular disease) 11/22/2016 Last Assessment & Plan: Mild claudication and weakness to bilateral legs when exercising. PVD to common iliacs, but cleared for kidney transplant per aortogram diagram. Metabolic acidosis 08/01/2015 Right sided weakness 07/30/2015 Hyperkalemia 07/30/2015 CKD (chronic kidney disease), stage 3 (moderate) 07/30/2015 Essential hypertension Last Assessment & Plan: Controled with medication: lisinopril and carvedilol High cholesterol Last Assessment & Plan: Controled with Atorvastatin Diabetes mellitus Encounters Date Type Specialty Care Team Description 04/16/2018 Orders Only Lab [facility], ESRD (end stage renal disease) ([facility]); Nishi Wu MD Patient awaiting renal transplant 04/16/2018 Evaluation Transplant Dionicio, Patient awaiting renal transplant (Primary Dx); Bhamidipati Pre-transplant evaluation for ESRD (end stage renal disease) ; MD Pedro ESRD (end stage renal disease) ([facility]); Diabetic nephropathy associated with type 2 diabetes mellitus ([facility]); Essential hypertension; Proliferative diabetic retinopathy of both eyes without macular edema associated with type 2 diabetes mellitus ([facility]); Diabetic polyneuropathy associated with type 2 diabetes mellitus ([facility]); H/O stroke without residual deficits; Hyperlipidemia, unspecified hyperlipidemia type; Coronary artery disease involving umkumiut coronary artery of [place] heart without angina pectoris 04/16/2018 Hospital Encounter Radiology Dionicio, Encounter for preprocedural cardiovascular examination ; Soumya Patient awaiting renal transplant; MD Pedro ESRD (end stage renal disease) ([facility]); Diabetic polyneuropathy associated with type 2 diabetes mellitus (HCC) 04/16/2018 Orders Only [facility] Flore[facility]o, Patient awaiting renal transplant (Primary Dx); Scheduling LADAN Manzano ESRD on dialysis ([facility]); Hypertensive heart disease without heart failure 04/16/2018 Travel 04/03/2018 Orders Only Lab O'Alberto, ESRD (end stage renal disease) ([facility]); Nishi Wu MD Patient awaiting renal transplant 04/02/2018 Telephone Transplant Quiles, Uteiam Appointment 03/30/2018 Orders Only Transplant ProviderFrancois MD 03/13/2018 Orders Only Lab [place], ESRD (end stage renal disease) ([facility]); Nishi Wu MD Patient awaiting renal transplant 02/12/2018 Documentation Transplant Florendo, Patient awaiting renal transplant (Primary Dx); LADAN Manzano ESRD (end stage renal disease) ([facility]); Diabetic polyneuropathy associated with type 2 diabetes mellitus ([facility]); Encounter for preprocedural cardiovascular examination 02/01/2018 Orders Only Lab [place], ESRD (end stage renal disease) ([facility]); Nishi Wu MD Patient awaiting renal transplant 12/27/2017 Orders Only Lab [place], ESRD (end stage renal disease) ([facility]); Nishi Wu MD Patient awaiting renal transplant 11/19/2017 Orders Only Lab ESRD (end stage renal disease) ([facility]); Patient awaiting renal transplant 10/31/2017 Orders Only Lab [place], ESRD (end stage renal disease) ([facility]); Nishi Wu MD Patient awaiting renal transplant 09/25/2017 Orders Only Transplant Mima Donato RN ESRD (end stage renal disease) ([facility]) (Primary Dx); Patient awaiting renal transplant 08/03/2017 Documentation Transplant Quiles, Meriam 08/02/2017 [facility] Charge Visit Transplant Soumya Greenberg MD Provider, [facility] Registry Generic 08/02/2017 Documentation Transplant Mima Donato RN 07/24/2017 Documentation Transplant DelilahhemaWaleska RN 07/24/2017 Documentation Transplant Sanjuana Bass E 06/28/2017 Telephone Transplant Delilahhema, Appointment (Spoke Waleska Daily RN to Pat, pt's daughter, regarding completion of MRB recommendations. Per Pat, pt still needs to see the neurologist & psychiatrist. Will follow up.) 06/16/2017 Telephone Transplant Sanjuana Bass E Appointment (Returned pt's daughter call, I [...] a an appt per post MRB. ) after 05/09/2017 Family History Medical History Relation [...] Vital Sign Reading Time Taken Blood Pressure 139/63 04/16/2018 12:31 PM 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 Pulse 78 04/16/2018 12:31 PM 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 Temperature 36.3 C (97.3 F) 04/16/2018 12:31 PM 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 Respiratory Rate 18 04/16/2018 12:31 PM 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 Oxygen Saturation 100% 04/16/2018 12:31 PM 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 Inhaled Oxygen Concentration - - Weight 83.7 kg (184 lb 8 oz) 04/16/2018 12:31 PM 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 Height 157.5 cm (5' 2") 04/16/2018 12:31 PM 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 Body Mass Index 33.75 04/16/2018 12:31 PM 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 Plan of Treatment Health Maintenance Due Date Last Done Comments INFLUENZA VACCINE 02/26/2018 Implants Implanted Type Area Head Neck Surgeon Device Shelf Model / Identifier Expiration Serial / Date Lot Device Clsr Angio-Seal Vip 6fr [id number] - [id number] Cardiovascular Right: [employer] TAMIE 01/26/2018 [id number] / Implanted: Qty: 1 on 03/20/2017 by Sivan Garber MD [facility] MED:CARDIAC / SURG [id number] Procedures Procedure Name Priority Date/Time Associated Diagnosis Comments AB SPECIFICITY CLASS Routine 04/16/2018 1:19 ESRD (end stage renal Results for this II PM 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 disease) ([facility]) procedure are in Patient awaiting renal the results transplant section. AB SPECIFICITY CLASS Routine 04/16/2018 1:19 ESRD (end stage renal Results for this I PM 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 disease) ([facility]) procedure are in Patient awaiting renal the results transplant section. FLOW PRA CLASS II Routine 04/16/2018 1:19 ESRD (end stage renal Results for this WITH REFLEX TO PM 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 disease) ([facility]) procedure are in ANTIBODY SPECIFICITY Patient awaiting renal the results transplant section. FLOW PRA CLASS I Routine 04/16/2018 1:19 ESRD (end stage renal Results for this WITH REFLEX TO PM 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 disease) ([facility]) procedure are in ANTIBODY SPECIFICITY Patient awaiting renal the results transplant section. NM CARDIAC PET Routine 04/16/2018 11:39 Encounter for Results for this PERFUSION REST AM 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 preprocedural procedure are in AND/OR STRESS cardiovascular the results examination section. Patient awaiting renal transplant ESRD (end stage renal disease) ([facility]) Diabetic polyneuropathy associated with type 2 diabetes mellitus ([facility]) TREADMILL Routine 04/16/2018 11:23 Results for this TOLERANCE(NON-NUCLEA AM 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 procedure are in R TREADMILL) the results section. ECG 12-LEAD Routine 04/16/2018 11:11 Results for this AM 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 procedure are in the results section. ECG 12-LEAD Routine 04/16/2018 11:11 AM 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 Procedure Note - Interface, External Ris In - 04/16/2018 11:41 AM 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 Ventricular Rate 78 BPM Atrial Rate 78 BPM P-R Interval 146 ms QRS Duration 84 ms Q-T Interval 426 ms QTC Calculation(Bazett) 485 ms P Page 56 degrees R Page 65 degrees T Page 14 degrees Normal sinus rhythm ST abnormality, possible digitalis effect Prolonged QT Abnormal ECG AB SPECIFICITY CLASS Routine 04/03/2018 1:36 ESRD (end stage renal Results for this I PM 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 disease) ([facility]) procedure are in Patient awaiting renal the results transplant section. FLOW PRA CLASS II Routine 04/03/2018 1:36 ESRD (end stage renal Results for this WITH REFLEX TO PM 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 disease) ([facility]) procedure are in ANTIBODY SPECIFICITY Patient awaiting renal the results transplant section. FLOW PRA CLASS I Routine 04/03/2018 1:36 ESRD (end stage renal Results for this WITH REFLEX TO PM 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 disease) ([facility]) procedure are in ANTIBODY SPECIFICITY Patient awaiting renal the results transplant section. AB SPECIFICITY CLASS Routine 03/13/2018 2:14 ESRD (end stage renal Results for this II PM CDT disease) ([facility]) procedure are in Patient awaiting renal the results transplant section. AB SPECIFICITY CLASS Routine 03/13/2018 2:14 ESRD (end stage renal Results for this I PM CDT disease) ([facility]) procedure are in Patient awaiting renal the results transplant section. FLOW PRA CLASS II Routine 03/13/2018 2:14 ESRD (end stage renal Results for this WITH REFLEX TO PM CDT disease) ([facility]) procedure are in ANTIBODY SPECIFICITY Patient awaiting renal the results transplant section. FLOW PRA CLASS I Routine 03/13/2018 2:14 ESRD (end stage renal Results for this WITH REFLEX TO PM CDT disease) ([facility]) procedure are in ANTIBODY SPECIFICITY Patient awaiting renal the results transplant section. AB SPECIFICITY CLASS Routine 02/01/2018 2:01 ESRD (end stage renal Results for this II PM CDT disease) ([facility]) procedure are in Patient awaiting renal the results transplant section. AB SPECIFICITY CLASS Routine 02/01/2018 2:01 ESRD (end stage renal Results for this I PM CDT disease) ([facility]) procedure are in Patient awaiting renal the results transplant section. FLOW PRA CLASS II Routine 02/01/2018 2:01 ESRD (end stage renal Results for this WITH REFLEX TO PM CDT disease) ([facility]) procedure are in ANTIBODY SPECIFICITY Patient awaiting renal the results transplant section. FLOW PRA CLASS I Routine 02/01/2018 2:01 ESRD (end stage renal Results for this WITH REFLEX TO PM CDT disease) ([facility]) procedure are in ANTIBODY SPECIFICITY Patient awaiting renal the results transplant section. AB SPECIFICITY CLASS Routine 12/27/2017 12:04 ESRD (end stage renal Results for this II PM CDT disease) ([facility]) procedure are in Patient awaiting renal the results transplant section. AB SPECIFICITY CLASS Routine 12/27/2017 12:04 ESRD (end stage renal Results for this I PM CDT disease) ([facility]) procedure are in Patient awaiting renal the results transplant section. FLOW PRA CLASS II Routine 12/27/2017 12:04 ESRD (end stage renal Results for this WITH REFLEX TO PM CDT disease) ([facility]) procedure are in ANTIBODY SPECIFICITY Patient awaiting renal the results transplant section. FLOW PRA CLASS I Routine 12/27/2017 12:04 ESRD (end stage renal Results for this WITH REFLEX TO PM CDT disease) ([facility]) procedure are in ANTIBODY SPECIFICITY Patient awaiting renal the results transplant section. AB SPECIFICITY CLASS Routine 11/19/2017 4:38 ESRD (end stage renal Results for this II AM CDT disease) ([facility]) procedure are in Patient awaiting renal the results transplant section. AB SPECIFICITY CLASS Routine 11/19/2017 4:38 ESRD (end stage renal Results for this I AM CDT disease) ([facility]) procedure are in Patient awaiting renal the results transplant section. AB SPECIFICITY CLASS Routine 10/31/2017 11:40 ESRD (end stage renal Results for this II AM CDT disease) ([facility]) procedure are in Patient awaiting renal the results transplant section. AB SPECIFICITY CLASS Routine 10/31/2017 11:40 ESRD (end stage renal Results for this I AM CDT disease) ([facility]) procedure are in Patient awaiting renal the results transplant section. FLOW PRA CLASS II Routine 10/31/2017 11:40 ESRD (end stage renal Results for this WITH REFLEX TO AM CDT disease) ([facility]) procedure are in ANTIBODY SPECIFICITY Patient awaiting renal the results transplant section. FLOW PRA CLASS I Routine 10/31/2017 11:40 ESRD (end stage renal Results for this WITH REFLEX TO AM CDT disease) ([facility]) procedure are in ANTIBODY SPECIFICITY Patient awaiting renal the results transplant section. after 05/09/2017 Results FLOW PRA CLASS II WITH REFLEX TO ANTIBODY SPECIFICITY (04/16/2018 1:19 PM 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) Only the most recent of6 resultswithin the time period is included. Flow Class II Percent Positive 5 [facility] Flow Class Report Comments [facility] Specimen Blood Narrative Performed At Disclaimer: [facility] This test was developed and its performance characteristics determined by the [facility]. It has not been cleared or approved by the U.S. Food and Drug Administration. The FDA has determined that such clearance or approval is not necessary. This test is used for clinical purposes. It should not be regarded as investigational or for research. This laboratory is certified under the Clinical Laboratory Improvement Amendments of 1988 (CLIA-88) as qualified to perform high complexity clinical laboratory testing. Performing Organization Address City/State/[facility] Phone Number [facility] [place], [place]: [place] [address] [id number], CLIA#[id number] CAP#[id number] [facility]#[id number] FLOW PRA CLASS I WITH REFLEX TO ANTIBODY SPECIFICITY (04/16/2018 1:19 PM 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) Only the most recent of6 resultswithin the time period is included. Flow Class I Percent Positive 8 [facility] Flow Class Report Comments [facility] Specimen Blood Narrative Performed At Disclaimer: [facility] This test was developed and its performance characteristics determined by the [facility]. It has not been cleared or approved by the U.S. Food and Drug Administration. The FDA has determined that such clearance or approval is not necessary. This test is used for clinical purposes. It should not be regarded as investigational or for research. This laboratory is certified under the Clinical Laboratory Improvement Amendments of 1988 (CLIA-88) as qualified to perform high complexity clinical laboratory testing. Performing Organization Address City/[facility] Phone Number [facility] [place], [place]: [place] [address] [id number], CLIA#[id number] CAP#[id number] [facility]#[id number] AB SPECIFICITY CLASS II (04/16/2018 1:19 PM 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)Only the most recent of6 resultswithin the time period is included. AB Specificity Class II DQ:05:01 [facility] AB Specificity Titr Class Report MFIs > 4000 [facility] Specimen Blood Narrative Performed At Disclaimer: [facility] This test was developed and its performance characteristics determined by the [facility]. It has not been cleared or approved by the U.S. Food and Drug Administration. The FDA has determined that such clearance or approval is not necessary. This test is used for clinical purposes. It should not be regarded as investigational or for research. This laboratory is certified under the Clinical Laboratory Improvement Amendments of 1988 (CLIA-88) as qualified to perform high complexity clinical laboratory testing. Performing Organization Address City/[facility] Phone Number [facility] [place], [place]: [place] [address] [id number], CLIA#[id number] CAP#[id number] [facility]#[id number] AB SPECIFICITY CLASS I (04/16/2018 1:19 PM 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)Only the most recent of7 resultswithin the time period is included. AB Specificity Class I A:34:01 [facility] AB Specificity Titr Class Report MFIs > 4000 [facility] Specimen Blood Narrative Performed At Disclaimer: [facility] This test was developed and its performance characteristics determined by the [facility]. It has not been cleared or approved by the U.S. Food and Drug Administration. The FDA has determined that such clearance or approval is not necessary. This test is used for clinical purposes. It should not be regarded as investigational or for research. This laboratory is certified under the Clinical Laboratory Improvement Amendments of 1988 (CLIA-88) as qualified to perform high complexity clinical laboratory testing. 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 Other cardiovascular history: No reported CAD. Current cardiovascular-related medications: Coreg, Lipitor. PROTOCOL: Limited low-dose CT imaging was performed for attenuation correction. 40.2 mCi of Rb-82 chloride was injected iv at rest, and gated PET (positron emission tomography) images were obtained. Subsequently, 40.1 mCi of Rb-82 chloride was injected iv at expected peak pharmacologic effect, and gated PET images were obtained. PRELIMINARY STRESS TEST DATA FROM NONINVASIVE CARDIOLOGY: Pharmacologic stress was by 10-second iv infusion of 0.4 mg of regadenoson. Radiotracer was injected 30 seconds after start of stress. Heart rate was 75 beats/min at rest and 85 beats/min (57% of MPHR) at tracer injection. BP was 145/75 mmHg at rest and 122/55 mmHg at tracer injection. Stress was stopped for predetermined endpoint. The patient experienced abdominal discomfort and shortness of breath; treatment was not required. Preliminary ECG evaluation revealed sinus rhythm at rest and no ischemic changes with stress. (Final ECG interpretation and other stress and monitoring data are reported separately by Cardiology.) IMAGING FINDINGS: Study quality is good. Images obtained after rest and stress injections show normal LV activity. LV and RV volumes appear normal. Gated images obtained at rest and with stress show normal LV wall motion and thickening. LVEF at rest is 58%. LVEF at stress is 59%. IMPRESSION: 1. Normal study.2. Appropriate pharmacologic stress.3. Normal myocardial perfusion.4. Normal resting LV function. No deterioration of function is noted with pharmacologic stress.5. Normal extracardiac tracer distribution.6. No previous [facility] study for comparison. Signed: Perry Tong MD Report Verified Date/Time:04/16/2018 15:28:40 Reading Location: [address] Reading Room Procedure Note Interface, External Ris In - 04/16/2018 3:30 PM 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 FINAL REPORT PROCEDURE: Rest/Stress MYOCARDIAL PERFUSION PET with regadenoson\\XA9\\ CPT CODE: 03260 INDICATION: ESRD, Preoperative evaluation for renal transplant HISTORY: Cardiac risk factors: ESRD, diabetes, hypertension, dyslipidemia, PVD, stroke. Other cardiovascular history: No reported CAD. Current cardiovascular-related medications: Coreg, Lipitor. PROTOCOL: Limited low-dose CT imaging was performed for attenuation correction. 40.2 mCi of Rb-82 chloride was injected iv at rest, and gated PET (positron emission tomography) images were obtained. Subsequently, 40.1 mCi of Rb-82 chloride was injected iv at expected peak pharmacologic effect, and gated PET images were obtained. PRELIMINARY STRESS TEST DATA FROM NONINVASIVE CARDIOLOGY: Pharmacologic stress was by 10-second iv infusion of 0.4 mg of regadenoson. Radiotracer was injected 30 seconds after start of stress. Heart rate was 75 beats/min at rest and 85 beats/min (57% of MPHR) at tracer injection. BP was 145/75 mmHg at rest and 122/55 mmHg at tracer injection. Stress was stopped for predetermined endpoint. The patient experienced abdominal discomfort and shortness of breath; treatment was not required. Preliminary ECG evaluation revealed sinus rhythm at rest and no ischemic changes with stress. (Final ECG interpretation and other stress and monitoring data are reported separately by Cardiology.) IMAGING FINDINGS: Study quality is good. Images obtained after rest and stress injections show normal LV activity. LV and RV volumes appear normal. Gated images obtained at rest and with stress show normal LV wall motion and thickening. LVEF at rest is 58%. LVEF at stress is 59%. IMPRESSION: 1. Normal study. 2. Appropriate pharmacologic stress. 3. Normal myocardial perfusion. 4. Normal resting LV function. No deterioration of function is noted with pharmacologic stress. 5. Normal extracardiac tracer distribution. 6. No previous [facility] study for comparison. Signed: Perry Tong MD Report Verified Date/Time: 04/16/2018 15:28:40 Reading Location: [address] P[address] Reading Room Performing Organization Address City/State/Zipcode Phone Number GE RIS Treadmill tolerance(Non-Nuclear Treadmill) (04/16/2018 11:23 AM 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) Narrative Performed At Protocol Name Regadenoson GE MUSE Time In Exercise Phase 00:01:00 Max. Systolic BP 122 mmHg Max Diastolic BP 75 mmHg Max Heart Rate 85 BPM Max Predicted Heart Rate 165 BPM Reason For Termination Predetermined end point Reason for Test Renal Transplant Work Up/Evaluation Target HR Formula (220 - Age)*100% Arrhythmias ventricular premature beats Resting ECG Normal sinus rhythm Nonspecific ST-T changes ST Changes <1mm ST DEPRESSION Overall Impression Indeterminate due to pharmacological stress Chest Pain none HR Response To Exercise BP Response To Exercise COREG LIPITOR Confirmed by fellow Osmany Lipscomb ([id number]) on 04/16/2018 1:12:51 PM Confirmed by MD JEANIE, ALENA ([id number]) on 04/24/2018 1:03:53 PM Procedure Note Interface, External Ris In - 04/24/2018 1:04 PM 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 Protocol Name Regadenoson Time In Exercise Phase 00:01:00 Max. Systolic BP 122 mmHg Max Diastolic BP 75 mmHg Max Heart Rate 85 BPM Max Predicted Heart Rate 165 BPM Reason For Termination Predetermined end point Reason for Test Renal Transplant Work Up/Evaluation Target HR Formula (220 - Age)*100% Arrhythmias ventricular premature beats Resting ECG Normal sinus rhythm Nonspecific ST-T changes ST Changes <1mm ST DEPRESSION Overall Impression Indeterminate due to pharmacological stress Chest Pain none HR Response To Exercise BP Response To Exercise COREG LIPITOR Confirmed by fellow Osmany Lipscomb ([id number]) on 04/16/2018 1:12:51 PM Confirmed by MD JEANIE, ALENA ([id number]) on 04/24/2018 1:03:53 PM Performing Organization Address City/State/Zipcode Phone Number GE MUSE ECG 12 lead (04/16/2018 11:11 AM 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) Narrative Performed At Ventricular Rate 78 BPM GE MUSE Atrial Rate 78 BPM P-R Interval 146 ms QRS Duration 84 ms Q-T Interval 426 ms QTC Calculation(Bazett) 485 ms P Page 56 degrees R Page 65 degrees T Page 14 degrees Normal sinus rhythm ST abnormality, possible digitalis effect Prolonged QT Abnormal ECG Confirmed by MD Garber Mahboob ([id number]) on 04/17/2018 9:56:20 AM Procedure Note Interface, External Ris In - 04/17/2018 9:56 AM 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 Ventricular Rate 78 BPM Atrial Rate 78 BPM P-R Interval 146 ms QRS Duration 84 ms Q-T Interval 426 ms QTC Calculation(Bazett) 485 ms P Page 56 degrees R Page 65 degrees T Page 14 degrees Normal sinus rhythm ST abnormality, possible digitalis effect Prolonged QT Abnormal ECG Confirmed by MD Garber Mahboob ([id number]) on 04/17/2018 9:56:20 AM Performing Organization Address City/State/[facility] Number [facility] after 05/09/2017 Insurance Payer Benefit Plan / Group Subscriber ID Type Phone Address MEDICARE MEDICARE A B xxxxxxxxxxx Medicare MEDICAID [place]ICA[place] xxxxxxxxx Medicaid Advance Directives For more information, please contact:[address] [phone] Code Status Date Activated Date Inactivated Comments Full Code 03/20/2017 7:28 PM 03/21/2017 12:00 AM This code status was determined by: Patient Full Code 07/30/2015 9:19 PM 08/04/2015 6:39 PM This code status was determined by: Patient
--- OUTSIDE RECORDS SUMMARY | 2018-05-10 06:03 | XMS REPORT ---
[...] Problem Depression with anxiety F41.8 Active Problem [facility] current use of insulin Z79.4 Active Problem Subclinical hypothyroidism E03.9 Active Problem Migraine without aura and without G43.009 Active status migrainosus, not intractable Problem GERD without esophagitis K21.9 Active Problem Dependence on renal dialysis Z99.2 Active Medications No Known Medications Results No Known Results Summary Purpose eClinicalJacked Submission
--- OUTSIDE RECORDS SUMMARY | 2018-05-10 06:03 | XMS REPORT ---
:1960 [facility] Address [address] [place] [address] Care Team Providers Name Role Phone FANY SCHOFIELD Unavailable Unavailable COURTNEY, BHAMIDIPATI DARIEL Unavailable Unavailable Payers Payer Name Policy Type Policy Number Effective Date Expiration Date Problems This patient has no known problems. Allergies, Adverse Reactions, Alerts Allergy Name Allergy Status Severity Reaction(s) Onset Inactive Treating Comments Type Date Date Clinician pregabalin DA Active [place] 2018-02 00:00:0 0 No Known DA Active U 2013-0115 00:00:0 0 Medications This patient has no known medications. Results Test Description Test Time Test Comments Text Results Atomic Results Result Comments PET, CARDIAC 2018-04-16 Reason for FINAL REPORT PATIENT ID: PERFUSION 15:28:00 Exam:->pretransplant eval [id number] PROCEDURE: MULTIPLE Rest/Stress MYOCARDIAL STUDIES, REST PERFUSION PET with AND STRESS regadenoson\XA9\ CPT CODE: 16609 INDICATION: ESRD, Preoperative evaluation for renal transplant [...] Normal extracardiac tracer distribution. 6. No previous [facility] study for comparison. Signed: Perry Jennings MDReport Verified Date/Time: 04/16/2018 15:28:40 Reading Location: [address] Reading Room -GLUCOSE METER 2017-03-20 15:38:00 Test Item Value Reference Range Comments POC-GLUCOSE METER (BEAKER) (test 110 mg/dL 70-110 TESTED AT [address] hfzt=4905) [facility] [id number] POCT-GLUCOSE [id number] 14:12:00 Test Item Value Reference Range Comments POC-GLUCOSE METER (BEAKER) 83 mg/dL 70-110 TESTED AT [address] (test mshs=1108) [facility] [id number] BASIC METABOLIC [id number] 13:37:00 Test Item Value Reference Range Comments SODIUM (BEAKER) (test 140 meq/L 136-145 wmun=718) POTASSIUM (BEAKER) (test 3.8 meq/L 3.5-5.1 cvrz=019) CHLORIDE (BEAKER) (test 103 meq/L 98-107 megh=931) CO2 (BEAKER) (test 25 meq/L 22-29 xpsx=809) BLOOD UREA NITROGEN 47 mg/dL 7-21 (BEAKER) (test awrl=092) CREATININE (BEAKER) (test 8.11 mg/dL 0.57-1.25 qnpi=332) GLUCOSE RANDOM (BEAKER) 88 mg/dL 70-105 (test wlcq=557) CALCIUM (BEAKER) (test 7.3 mg/dL 8.4-10.2 duav=105) EGFR (BEAKER) (test 5 mL/min/1.73 sq m ESTIMATED GFR IS NOT ogab=5909) ACCURATE CREATININE CLEARANCE IN PREDICTING GLOMERULAR FILTRATION RATE. ESTIMATED GFR IS NOT APPLICABLE FOR DIALYSIS PATIENTS. [id number] 13:24:00 Test Item Value Reference Range Comments PROTIME (BEAKER) (test agvs=475) 14.3 seconds 11.7-14.7 INR (BEAKER) (test atzc=433) 1.1 <=5.9 PARTIAL THROMBOPLASTIN TIME (BEAKER) (test 33.0 seconds 22.5-36.0 jihk=145) RECOMMENDED COUMADIN/WARFARIN INR THERAPY RANGESSTANDARD DOSE: 2.0 - 3.0 Includes: PROPHYLAXIS forvenous thrombosis, systemic embolization; TREATMENT for venous thrombosis and/or pulmonary embolus.HIGH RISK: Target INR is 2.5-3.5 for patients with mechanical heart valves.CBC (HEMOGRAM ONLY)2017-03-20 13:09:00 Test Item Value Reference Range Comments WHITE BLOOD CELL COUNT (BEAKER) (test jzcv=506) 13.6 K/ L 3.5-10.5 RED BLOOD CELL COUNT (BEAKER) (test xvip=157) 3.90 M/ L 3.93-5.22 HEMOGLOBIN (BEAKER) (test nebv=191) 11.0 GM/DL 11.2-15.7 HEMATOCRIT (BEAKER) (test euca=305) 35.2 % 34.1-44.9 MEAN CORPUSCULAR VOLUME (BEAKER) (test iisj=073) 90.3 fL 79.4-94.8 MEAN CORPUSCULAR HEMOGLOBIN (BEAKER) (test 28.2 pg 25.6-32.2 iitb=097) MEAN CORPUSCULAR HEMOGLOBIN CONC (BEAKER) (test 31.3 GM/DL 32.2-35.5 namz=579) RED CELL DISTRIBUTION WIDTH (BEAKER) (test 13.6 % 11.7-14.4 gczq=609) PLATELET COUNT (BEAKER) (test fjko=810) 321 K/CU MM 150-450 MEAN PLATELET VOLUME (BEAKER) (test rzyg=158) 11.1 fL 9.4-12.3 NUCLEATED RED BLOOD CELLS (BEAKER) (test 0 /100 WBC 0-0 yhmp=142) OCCULT BLOOD, [id number] 16:13:00 Test Item Value Reference Range Comments FECAL OCCULT BLOOD (BEAKER) (test gsvc=758) Negative Negative OCCULT BLOOD, [id number] 16:13:00 Test Item Value Reference Range Comments FECAL OCCULT BLOOD (BEAKER) (test mmde=703) Positive Negative AB SPECIFICITY CLASS [id number] 11:48:00 Test Item Value Reference Range Comments DATE OF SERUM (BEAKER) (test gvcw=0258) [id number] SERUM # (BEAKER) (test qmqg=5947) 33966 AB SPECIFICITY CLASS II (BEAKER) (test See Scanned Report zbll=7650) AB SPECIFICITY CLASS [id number] 11:48:00 Test Item Value Reference Range Comments DATE OF SERUM (BEAKER) (test myal=3799) [id number] SERUM # (BEAKER) (test gfjj=8660) 30425 AB SPECIFICITY CLASS I (BEAKER) (test rkms=1765) HLA [id number] 13:00:00 Test Item Value Reference Range Comments HLA RESULT (BEAKER) (test vbsf=3027) See Scanned Report HLA-A AG1 (BEAKER) (test wyzn=6803) HLA-A AG2 (BEAKER) (test tsox=3403) HLA-B AG1 (BEAKER) (test wkkq=7038) HLA-B AG2 (BEAKER) (test izaz=9866) HLA-C AG1 (BEAKER) (test kvnw=9225) HLA-C AG2 (BEAKER) (test xklr=3526) HLA-DR AG1 (BEAKER) (test boqq=5467) HLA-DR AG2 (BEAKER) (test gjth=5233) HLA-DQ AG1 (BEAKER) (test jybt=8341) HLA-DQ AG2 (BEAKER) (test zfrp=7782) HLA-DRW (BEAKER) (test vonp=9452) URINE [id number] 13:11:00 Test Item Value Reference Range Comments CULTURE (BEAKER) (test cpja=8969) >100,000 col/mL skin nino CYTOMEGALOVIRUS ANTIBODY, [id number] 12:04:00 Test Item Value Reference Range Comments CYTOMEGALOVIRUS IGG ANTIBODY (BEAKER) (test Positive xurb=393) CYTOMEGALOVIRUS ANTIBODY, [id number] 12:04:00 Test Item Value Reference Range Comments CYTOMEGALOVIRUS IGM ANTIBODY (BEAKER) (test Negative gznz=776) EBV-VCA ANTIBODY, [id number] 12:04:00 Test Item Value Reference Range Comments KELLY-CARLOS VCA IGG (BEAKER) (test bwls=639) Positive EBV-VCA ANTIBODY, [id number] 12:04:00 Test Item Value Reference Range Comments KELLY-CARLOS VCA IGM (BEAKER) (test fpkn=106) Negative VARICELLA ZOSTER ANTIBODY, [id number] 11:20:00 Test Item Value Reference Range Comments VARICELLA ZOSTER IGG (AL) (BEAKER) (test jzpi=5279) 1.6 Al VARICELLA ZOSTER RESULT INTERPRETATIONS: <=0.8 Al Nonreactive: Presumed non-immune to VZV 0.9-1.0 Al Equivocal >=1.1 Al Reactive: Presumed immune to [id number] 09:05:00 Test Item Value Reference Range Comments RPR SCREEN (BEAKER) (test anqj=301) Nonreactive Nonreactive HEPATITIS B SURFACE [id number] 15:05:00 Test Item Value Reference Range Comments HEPATITIS B SURFACE ANTIBODY (BEAKER) (test < mIU/mL <8.0 axdy=648) HEPATITIS B SURFACE [id number] 15:04:00 Test Item Value Reference Range Comments HEPATITIS B SURFACE ANTIGEN (2) (BEAKER) (test Nonreactive Nonreactive nveo=5810) HEPATITIS B CORE ANTIBODY, [id number] 15:04:00 Test Item Value Reference Range Comments HEPATITIS B CORE IGM ANTIBODY (BEAKER) (test Nonreactive Nonreactive qncd=083) HEPATITIS C [id number] 15:04:00 Test Item Value Reference Range Comments HEPATITIS C ANTIBODY (BEAKER) (test plsw=792) Nonreactive Nonreactive HIV-1 ANTIGEN WITH HIV-1/2 [id number] 15:04:00 Test Item Value Reference Range Comments HIV-1 ANTIGEN WITH HIV 1\T\2 ANTIBODY (2) Nonreactive Nonreactive (BEAKER) (test tkma=1332) PTH, [id number] 14:34:00 Test Item Value Reference Range Comments PARATHYROID HORMONE INTACT (BEAKER) (test 424.6 pg/mL 8.5-72.5 durz=920) Effective 04/15/2014: Reference Range ChangeNew: 8.5-72.5 Previous: 15.0- 90.0HEMOGLOBIN [id number] 14:13:00 Test Item Value Reference Range Comments HEMOGLOBIN A1C (BEAKER) (test alny=593) 8.0 % 4.3-6.1 URINALYSIS W/ [id number] 14:08:00 Test Item Value Reference Range Comments COLOR (BEAKER) (test wfgy=808) Light Yellow CLARITY (BEAKER) (test tctj=876) Hazy SPECIFIC GRAVITY UA (BEAKER) (test npqr=578) 1.010 1.001-1.035 PH UA (BEAKER) (test mbji=217) 8.0 5.0-8.0 PROTEIN UA (BEAKER) (test flav=084) >600 mg/dL Negative GLUCOSE UA (BEAKER) (test wwxi=358) 500 mg/dL Negative KETONES UA (BEAKER) (test hngm=254) Negative Negative BILIRUBIN UA (BEAKER) (test ries=454) Negative Negative BLOOD UA (BEAKER) (test iznx=693) Negative Negative NITRITE UA (BEAKER) (test wiec=697) Negative Negative LEUKOCYTE ESTERASE UA (BEAKER) (test zzsi=157) Negative Negative UROBILINOGEN UA (BEAKER) (test hsnq=339) 0.2 mg/dL 0.2-1.0 RBC UA (BEAKER) (test damo=858) < /HPF WBC UA (BEAKER) (test iozh=087) 4 /HPF BACTERIA (BEAKER) (test zlkr=340) Rare SQUAMOUS EPITHELIAL (BEAKER) (test fuvg=096) 9 /HPF CASTS (BEAKER) (test ubfb=5940) 5 /LPF SOURCE(BEAKER) (test lggw=3652) COMPREHENSIVE METABOLIC [id number] 13:28:00 Test Item Value Reference Range Comments TOTAL PROTEIN (BEAKER) 7.3 gm/dL 6.0-8.3 (test izjo=709) ALBUMIN (BEAKER) (test 3.6 g/dL 3.5-5.0 rusu=7869) ALKALINE PHOSPHATASE 96 U/L 40-150 (BEAKER) (test ragd=735) BILIRUBIN TOTAL (BEAKER) 0.6 mg/dL 0.2-1.2 (test buay=993) SODIUM (BEAKER) (test 136 meq/L 136-145 rzjx=511) POTASSIUM (BEAKER) (test 4.1 meq/L 3.5-5.1 jgdl=967) CHLORIDE (BEAKER) (test 100 meq/L 98-107 fnip=076) CO2 (BEAKER) (test 24 meq/L 22-29 vwxv=963) BLOOD UREA NITROGEN 31 mg/dL 7-21 (BEAKER) (test jgog=878) CREATININE (BEAKER) (test 5.33 mg/dL 0.57-1.25 qlqv=247) GLUCOSE RANDOM (BEAKER) 300 mg/dL 70-105 (test pbfn=520) CALCIUM (BEAKER) (test 8.6 mg/dL 8.4-10.2 epyo=760) AST (SGOT) (BEAKER) (test 14 U/L 5-34 qmvx=748) ALT (SGPT) (BEAKER) (test 9 U/L 6-55 lsrp=298) EGFR (BEAKER) (test 8 mL/min/1.73 sq m ESTIMATED GFR IS NOT kykl=9589) ACCURATE CREATININE CLEARANCE IN PREDICTING GLOMERULAR FILTRATION RATE. ESTIMATED GFR IS NOT APPLICABLE FOR DIALYSIS PATIENTS. URIC [id number] 13:06:00 Test Item Value Reference Range Comments URIC ACID (BEAKER) (test mpff=377) 4.3 mg/dL 2.6-7.2 [id number] 13:06:00 Test Item Value Reference Range Comments PHOSPHORUS (BEAKER) (test riya=247) 5.6 mg/dL 2.3-4.7 LIPID [id number] 13:06:00 Test Item Value Reference Range Comments TRIGLYCERIDES (BEAKER) (test drmf=391) 121 mg/dL CHOLESTEROL (BEAKER) (test fnls=521) 138 mg/dL HDL CHOLESTEROL (BEAKER) (test ndwe=503) 55 mg/dL LDL CHOLESTEROL CALCULATED (BEAKER) (test 59 mg/dL uenk=516) Triglyceride Reference Range: Low Risk <150 Borderline [...] Range Comments GAMMA GLUTAMYL TRANSFERASE (BEAKER) (test qcxa=564) 16 U/L 9-64 LACTATE DEHYDROGENASE (LDH)[id number] 13:06:00 Test Item Value Reference Range Comments LACTATE DEHYDROGENASE (BEAKER) (test xbye=273) 364 U/L 125-220 CBC W/PLT COUNT & AUTO [id number] 12:47:00 Test Item Value Reference Range Comments WHITE BLOOD CELL COUNT (BEAKER) (test fatd=776) 8.5 K/ L 4.0-10.0 RED BLOOD CELL COUNT (BEAKER) (test djbb=385) 4.74 M/ L 4.00-5.00 HEMOGLOBIN (BEAKER) (test alnq=021) 13.3 GM/DL 12.0-15.0 HEMATOCRIT (BEAKER) (test pfvs=840) 40.7 % 36.0-45.0 MEAN CORPUSCULAR VOLUME (BEAKER) (test pfsa=708) 85.8 fL 82.0-99.0 MEAN CORPUSCULAR HEMOGLOBIN (BEAKER) (test 28.0 pg 27.0-33.0 tpws=838) MEAN CORPUSCULAR HEMOGLOBIN CONC (BEAKER) (test 32.6 GM/DL 32.0-36.0 htcm=339) RED CELL DISTRIBUTION WIDTH (BEAKER) (test 16.4 % 10.3-14.2 suzy=104) PLATELET COUNT (BEAKER) (test gqre=608) 311 K/CU MM 150-430 MEAN PLATELET VOLUME (BEAKER) (test haka=128) 8.8 fL 6.5-10.5 NUCLEATED RED BLOOD CELLS (BEAKER) (test 0 /100 WBC 0-0 bxjt=352) NEUTROPHILS RELATIVE PERCENT (BEAKER) (test 74 % ngon=280) LYMPHOCYTES RELATIVE PERCENT (BEAKER) (test 19 % jkxo=713) MONOCYTES RELATIVE PERCENT (BEAKER) (test 6 % cwyk=916) EOSINOPHILS RELATIVE PERCENT (BEAKER) (test 2 % rqjc=946) BASOPHILS RELATIVE PERCENT (BEAKER) (test 0 % yxlh=216) NEUTROPHILS ABSOLUTE COUNT (BEAKER) (test 6.30 K/ L 1.80-8.00 vdoy=525) LYMPHOCYTES ABSOLUTE COUNT (BEAKER) (test 1.58 K/ L 1.48-4.50 cvmi=786) MONOCYTES ABSOLUTE COUNT (BEAKER) (test 0.49 K/ L 0.00-1.30 hjgf=302) EOSINOPHILS ABSOLUTE COUNT (BEAKER) (test 0.14 K/ L 0.00-0.50 oior=288) BASOPHILS ABSOLUTE COUNT (BEAKER) (test 0.02 K/ L 0.00-0.20 foha=813) 0.00PT/[id number] 12:39:00 Test Item Value Reference Range Comments PROTIME (BEAKER) (test znjl=699) 13.1 seconds 11.7-14.7 INR (BEAKER) (test shjg=945) 1.0 <=5.9 PARTIAL THROMBOPLASTIN TIME (BEAKER) (test 31.8 seconds 22.5-36.0 oabe=136) RECOMMENDED COUMADIN/WARFARIN INR THERAPY RANGESSTANDARD DOSE: 2.0 - 3.0 Includes: PROPHYLAXIS forvenous thrombosis, systemic embolization; TREATMENT for venous thrombosis and/or pulmonary embolus.HIGH RISK: Target INR is 2.5-3.5 for patients with mechanical heart valves.
--- OUTSIDE RECORDS SUMMARY | 2018-05-10 06:03 | XMS REPORT ---
[...] End Status Dosage System Date Date Hydrocortisone [facility] 64007499659 1 % Externally Active 1 application Twice a day to affected area Darbepoetin Marito [facility] [address]-74 Active not defined MiraLax [facility] 36585309008 Active not defined Sevelamer [facility] [address]-32 Active not defined Carbonate Tylenol with [facility] 27372999195 300-30 MG Active 1 tablet as Codeine #3 Orally TWICE needed DAILY PRN PAIN Ergocalciferol [facility] [address]-27 Active not defined Lisinopril [facility] [address]-71 Active not defined Aspirin 81 [facility] 85663554392 81 MG Orally Active 1 tablet Once a day Aranesp (Albumin [facility] [address]-90 Active not defined Free) Tresiba FlexTouch [facility] 25940170724 200 UNIT/ML Active 12-16 UNITS Subcutaneous QHS Gentamicin NDC 0 Active not defined Lipitor [facility] 72705364846 40 MG Orally Active 1 tablet Once a day Amlodipine ND 0 Active not defined Besylate Tessalon Perles [facility] [address]-53 Active not defined Carvedilol [facility] 63349096505 25 MG Orally Active not defined TWICE DAILY Calcium Carbonate [facility] 25739178722 750 MG Orally Active 1 tablet Antacid Once a day Calcitriol [facility] [address]-25 Active not defined cyclobenzaprine [facility] 0 Active not defined Renax [facility] 0 Active not defined Tamiflu [facility] 92747060789 75 MG Orally October 18, Active 1 capsule Twice a day 2017 Vitamin D [facility] 61033817960 40004 UNIT Active 1 capsule (Ergocalciferol) Orally Bisacodyl [facility] [address]-25 Active not defined Senna [facility] 68193538418 8.6 MG Orally Active 2 tablets at Once OR TWICE bedtime as DAILY PRN needed Furosemide [facility] 11704110775 80 MG Orally Active 1 tablet Once a day Plavix [facility] 18300261332 75 MG Orally Active 1 tablet Once a day Tylenol Extra [facility] [address]-22 Active not defined Strength Results Name Result Date Reference Range Unit Abnormality Flag FLU TEST ----A Negative [id number] ----B Positive [id number] Summary Purpose eClinicalWorks Submission
--- OUTSIDE RECORDS SUMMARY | 2018-05-10 06:03 | XMS REPORT ---
[...] Problem Depression with anxiety F41.8 Active Problem alf current use of insulin Z79.4 Active Problem Subclinical hypothyroidism E03.9 Active Problem Migraine without aura and without G43.009 Active status migrainosus, not intractable Problem GERD without esophagitis K21.9 Active Assessment Encounter for wound re-check Z51.89 Active Problem Dependence on renal dialysis Z99.2 Active Medications Medication Code Code Instructions Start End Status Dosage System Date Date Plavix [facility] 12272140209 75 MG Orally Active 1 tablet Once a day Furosemide ND 69071188816 40 MG Orally Active 1 tablet Once a day Hydrocortisone ND 88245066042 1 % Externally Active 1 application Twice a day to affected area Senna [facility] 20553716551 8.6 MG Orally Active 2 tablets at Once OR TWICE bedtime as DAILY PRN needed Vitamin D ND 79865085328 45986 UNIT Active 1 capsule (Ergocalciferol) Orally Calcium Carbonate [facility] 00338040379 750 MG Orally Active 1 tablet Antacid Once a day Lipitor ND 90148933810 40 MG Orally Active 1 tablet Once a day Tresiba FlexTouch [facility] 56504416999 200 UNIT/ML Active 12-16 UNITS Subcutaneous QHS Tylenol with [facility] 38625954734 300-30 MG Active 1 tablet as Codeine #3 Orally TWICE needed DAILY PRN PAIN Carvedilol [facility] 37387954836 25 MG Orally Active not defined TWICE DAILY Aspirin 81 [facility] 23143880713 81 MG Orally Active 1 tablet Once a day Results No Known Results Summary Purpose eClinicalWorks Submission
--- OUTSIDE RECORDS SUMMARY | 2018-05-10 06:03 | XMS REPORT ---
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
--- OUTSIDE RECORDS SUMMARY | 2018-05-10 06:03 | XMS REPORT ---
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 Problem [...] Status Dosage System Date Date Aspirin 81 [facility] 13858295770 81 MG Orally Active 1 tablet Once a day Calcium Carbonate [facility] 38440958220 750 MG Orally Active 1 tablet Antacid Once a day Tylenol with [facility] 74516705082 300-30 MG Active 1 tablet as Codeine #3 Orally TWICE needed DAILY PRN PAIN Hydrocortisone ND 02331646228 1 % Externally Active 1 application Twice a day to affected area Augmentin [facility] 44059455405 875-125 MG August Active 1 tablet Orally BID 2017 Vitamin D ND 94116411230 81028 UNIT Active 1 capsule (Ergocalciferol) Orally Furosemide ND 39729714134 40 MG Orally Active 1 tablet Once a day Senna ND 55834739212 8.6 MG Orally Active 2 tablets at Once OR TWICE bedtime as DAILY PRN needed Lipitor [facility] 09416054050 40 MG Orally Active 1 tablet Once a day Tresiba FlexTouch [facility] 15962933180 200 UNIT/ML Active 12-16 UNITS Subcutaneous QHS Carvedilol [facility] 83981366143 25 MG Orally Active not defined TWICE DAILY Plavix [facility] 24811908845 75 MG Orally Active 1 tablet Once a day Results No Known Results Summary Purpose eClinicalWorks Submission
--- OUTSIDE RECORDS SUMMARY | 2018-05-10 06:03 | XMS REPORT ---
[...] ND 0 Active not defined Tylenol with [facility] 74633370317 300-30 MG Active 1 tablet as Codeine #3 Orally TWICE needed DAILY PRN PAIN Aspirin 81 ND 93033703014 81 MG Orally Active 1 tablet Once a day Vitamin D ND 07199076478 98489 UNIT Active 1 capsule (Ergocalciferol) Orally Sevelamer [facility] [address]-22 Active not defined Carbonate Aranesp (Albumin [facility] [address]-76 Active not defined Free) Hydrocortisone ND 15016818111 1 % Externally Active 1 application Twice a day to affected area Lipitor [facility] 43349069091 40 MG Orally Active 1 tablet Once a day Calcium Carbonate [facility] 24018774335 750 MG Orally Active 1 tablet Antacid Once a day Ergocalciferol [facility] [address]-25 Active not defined Tessalon Perles [facility] [address]-42 Active not [address] [facility] [address]-33 Active not defined Darbepoetin Marito [facility] [address]-17 Active not defined cyclobenzaprine ND 0 Active not defined Senna [facility] 01092636610 8.6 MG Orally Active 2 tablets at Once OR TWICE bedtime as DAILY PRN needed Tresiba FlexTouch [facility] 99504341171 200 UNIT/ML Active 12-16 UNITS Subcutaneous QHS Carvedilol [facility] 21376430607 25 MG Orally Active not defined TWICE DAILY Furosemide [facility] 95877354044 80 MG Orally Active 1 tablet Once a day Plavix [facility] 89391116179 75 MG Orally Active 1 tablet Once a day Calcitriol [facility] [address]-[address] not [address] [facility] [address]-92 Active not defined MiraLax [facility] [address]-11 Active not defined Amlodipine ND 0 Active not defined Besylate Tylenol Extra [facility] [address]-83 Active not defined Strength Renax ND 0 Active not defined Results No Known Results Summary Purpose eClinicalWorks Submission
--- OUTSIDE RECORDS SUMMARY | 2018-05-10 06:03 | XMS REPORT ---
[...] Problem Depression with anxiety F41.8 Active Problem [facility] current use of insulin Z79.4 Active Problem Subclinical hypothyroidism E03.9 Active Problem Migraine without aura and without G43.009 Active status migrainosus, not intractable Problem GERD without esophagitis K21.9 Active Problem Dependence on renal dialysis Z99.2 Active Medications No Known Medications Results No Known Results Summary Purpose eClinicalMibio Submission
--- OUTSIDE RECORDS SUMMARY | 2018-05-10 06:04 | XMS REPORT ---
:1960 Author Organization eClinicalWorks Care Team Providers Name Role Phone Familia Lipscombh Provider Role Unavailable Allergies, Adverse Reactions, Alerts Substance Reaction Event Type Meclizine HCl put her in the hospital Drug Allergy Lyrica put her in the hospital Drug Allergy Problems Problem Type Condition Code Onset Dates Condition Status Assessment Subclinical hypothyroidism E03.9 Active Assessment Type 2 diabetes mellitus with E11.65 Active hyperglycemia Assessment PVD (peripheral vascular disease) I73.9 Active Assessment Mixed hyperlipidemia E78.2 Active Assessment Dependence on renal dialysis Z99.2 Active Assessment 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 Assessment Anemia of chronic disease D63.8 Active Assessment End stage renal disease N18.6 Active Assessment Type 2 diabetes mellitus with E11.8 Active unspecified complications Problem Subclinical hypothyroidism E03.9 Active Assessment HTN (hypertension), benign I10 Active Problem Migraine without aura and without G43.009 Active status migrainosus, not intractable Problem Adenomatous polyp of colon, D12.6 Active unspecified part of colon Problem Carotid artery occlusion I65.29 Active Problem Chronic depressive person F34.1 Active Problem Peripheral vascular disease I73.9 Active Problem Gastroesophageal reflux disease K21.9 Active Problem long-term current use of insulin Z79.4 Active Problem Mixed hyperlipidemia E78.2 Active Problem Anxiety F41.9 Active Problem HTN (hypertension), benign I10 Active Problem Hyperlipidemia, mixed E78.2 Active Problem End-stage renal disease N18.6 Active Problem Diabetes mellitus type 2, E11.9 Active uncontrolled, without complications Problem Benign essential hypertension I10 Active Assessment GERD without esophagitis K21.9 Active Problem Dependence on renal dialysis Z99.2 Active Assessment Depression with anxiety F41.8 Active Problem Type 2 diabetes mellitus with E11.8 Active unspecified complications Assessment Migraine without aura and without G43.009 Active status migrainosus, not intractable Problem Depression with anxiety F41.8 Active Assessment Occlusion of carotid artery, I65.29 Active unspecified laterality Problem GERD without esophagitis K21.9 Active Problem Anemia of chronic disease D63.8 Active Problem PVD (peripheral vascular disease) I73.9 Active Problem Type 2 diabetes mellitus with E11.65 Active hyperglycemia Problem End stage renal disease N18.6 Active Medications Medication Code Code Instructions Start End Status Dosage System Date Date Tylenol with [facility] 71475400485 300-30 MG Active 1 tablet as Codeine #3 Orally TWICE needed DAILY PRN PAIN Senna [facility] 03250158586 8.6 MG Orally Active 2 tablets at Once OR TWICE bedtime as DAILY PRN needed Plavix [facility] 54242518760 75 MG Orally Active 1 tablet Once a day Calcium Carbonate [facility] 62194134543 750 MG Orally Active 1 tablet Antacid Once a day Renax ND 0 Active not defined Aranesp (Albumin [facility] [address]-41 Active not defined Free) Sevelamer [facility] [address]-59 Active not defined Carbonate Hydrocortisone [facility] 39116645177 1 % Externally Active 1 application Twice a day to affected area Vitamin D [facility] 39036450756 96009 UNIT Active 1 capsule (Ergocalciferol) Orally Ergocalciferol ND 0 Active not defined Crestor [facility] 04167851317 10 MG Orally Active 1 tablet Once a day MiraLax [facility] 36575041824 Active not defined Darbepoetin Marito [facility] [address]-63 Active not defined cyclobenzaprine ND 0 Active not defined Gentamicin ND 0 Active not defined Amlodipine ND 0 Active not defined Besylate Tamiflu [facility] 69564310186 75 MG Orally October 18, Active 1 capsule Twice a day 2017 Furosemide [facility] 69709070333 40 MG Orally Active 1 tablet Once a day Aspirin 81 [facility] 56845717061 81 MG Orally Active 1 tablet Once a day Tresiba FlexTouch [facility] 48477508210 200 UNIT/ML Active 12-16 UNITS Subcutaneous QHS Calcitriol [facility] [address]-85 Active not defined Carvedilol [facility] 58733318957 25 MG Orally Active not defined TWICE DAILY Bisacodyl [facility] [address]-36 Active not defined Tylenol Extra [facility] [address]-49 Active not defined Strength Tessalon Perles [facility] [address]-92 Active not defined Lisinopril [facility] [address]-72 Active not defined Results No Known Results Summary Purpose eClinicalWorks Submission
[2018-05-10] MEDS ORDERED: SCOPOLAMINE HYDROBROMIDE PATCH TD ONE (06:28)
[2018-05-10] MEDS ORDERED: NA CHLORIDE 0.9% 1,000 ML ONE ×2 (06:29→06:56)
[2018-05-10] MEDS ORDERED: PROPOFOL 200 MG/20 ML VIAL IV ONE (07:04)
[2018-05-10] MEDS ORDERED: MIDAZOLAM HCL 2 MG/2 ML INJ ONE (07:05)
[2018-05-10] MEDS ORDERED: ONDANSETRON 4 MG/2 ML VIAL ONE (07:05)
[2018-05-10] MEDS ORDERED: FENTANYL CITR 100 MCG/2 ML ONE (07:05)
[2018-05-10] MEDS ORDERED: LIDOCAINE 2% MPF 5 ML VIAL ONE (07:05)
[2018-05-10 08:37] VITALS: BP 180/67; TEMP 97.4; O2SAT 95
[2018-05-10] MEDS ORDERED: ACETAMINOPHEN 500 MG TAB ONE (08:50)
--- NOTE | 2018-05-10 19:23 | OP ---
Date of Procedure: 05/10/2018 Surgeon: Makeda Mari MD Preoperative Diagnosis: Postmenopausal bleeding. Postoperative Diagnosis: Postmenopausal bleeding. Procedure Performed: Hysteroscopy with Symphion, dilatation and curettage. Anesthesia: General. Specimens: Endometrial curettings. Complications: None. Drains: None. Findings: Cavity empty. No endometrial polyp was seen. Lining was thickened. Both tubal ostia wer e well visualized. Adequate sampling obtained. Indications: This is a 57-year-old with postmenopausal bleeding, evaluated with transvaginal ultraso und with the endometrial stripe that was thickened to 1.27 mm. A small fibroid was seen. No ovary w as visualized. However, given the fact that she has postmenopausal bleeding with the endometrial str ipe greater than 4 mm, she needed endometrial sampling, so decided to have a cavity evaluation with h ysteroscopy and sampling, so she was consented and brought to the OR. She was on hemodialysis for en d-stage renal failure from poorly controlled diabetes. She had been on peritoneal dialysis for the p ast 2 years, so doxycycline was started on this patient yesterday 100 b.i.d. She is here today for h er procedure. Description Of Procedure: After informed consent was verified, she was taken back to the OR and plac ed in a supine fashion on the operating table. Anesthesia was given. She was placed in a dorsal lit hotomy position. Pelvic exam performed. Cervix very high, anteflexed uterus. Prep x3 with Betadine was done in the vaginal canal and on the cervix. Speculum was used to expose the cervix. I had to use anterior and posterior speculums to expose it. Once the anterior lip was grasped, then 2 Allis w ere placed. The cervix was dilated to 16-Mauritanian. Symphion scope was introduced after priming it. S he had a mean arterial pressure of 81 mmHg, so the set pressure on the Symphion was 80. Normal salin e was used for distention medium with a 0-degree scope. Cervical canal was traversed directly under vision and uterine cavity was entered. The cavity was normal without any distortions or lesions. Th e scope was removed. Then curettings were performed adequately with a #2 curette. All instruments w ere removed. Instrument, needle, and sponge counts were done and were correct at the end of the case . The patient tolerated the procedure well. She will continue her doxycycline b.i.d. for 4 more day s and she will follow up with me in 1 week for results. MELANY Voice ID: [id number] Report ID: [id number]
== END 2018-05-10 09:10 | disposition home or self-care (01) ==
LOC: OR 05:59
PROVIDERS: ATTEND Obstetrics & Gynecology
PROC: 0UDB8ZX Extraction of Endometrium, Via Natural or Artificial Opening Endoscopic, Diagnostic (ICD-10-PCS; principal; 2018-05-10 07:00)
DX: N95.0 Postmenopausal bleeding (principal); E11.22 Type 2 diabetes mellitus with diabetic chronic kidney disease; I12.0 Hypertensive chronic kidney disease with stage 5 chronic kidney disease or end stage renal disease; N18.6 End stage renal disease; E78.00 Pure hypercholesterolemia, unspecified; Z79.82 Long term (current) use of aspirin; Z79.4 Long term (current) use of insulin; Z79.899 Other long term (current) drug therapy; Z99.2 Dependence on renal dialysis; Z86.73 Personal history of transient ischemic attack (TIA), and cerebral infarction without residual deficits
CPT/HCPCS: 36415; 58558; 80053; 81025; 82962 ×3; 85610; 85730; 88305; J2250; J2405; J2704; J3010; J7030 ×2